=== PATIENT | male | born 1935 | race Caucasian/White ===

== ENCOUNTER 2020-03-26 11:41 | Inpatient (IN) | payer MEDICARE, SELFPAY ==
[2020-03-26] VITALS (31 sets, daily range): BP systolic 130–157; BP diastolic 55–96; PULSE 62–87; RESP 12–23; TEMP 36.2–36.5; O2SAT 92–98; BMI 31.7; BMI 31.0
--- NOTE | ~2020-03-26 | CT_ITS ---
EXAMINATION: CTA brain carotid DATE: 03/28/2020 09:46 INDICATION: Neck pain. Diplopia. Vertigo. TECHNIQUE: Computed tomographic angiography (CTA) of the head was performed without and with 100 mL O mnipaque-350 intravenous contrast. CTA of the neck was performed with intravenous contrast. Automated exposure control and iterative reconstruction technique were employed. The dose-length product was 1 759.13 mGy-cm. Maximum intensity projection and volume rendered 3D-reconstructions were created by martinez tatum technologist on a separate workstation. COMPARISON: Head CT 03/26/2020, brain MRI 09/25/2014 FINDINGS: HEAD CTA: There are scattered areas of low attenuation in the cerebral white matter. There is no intr acranial hemorrhage, acute infarction, or abnormal intracranial mass lesion. The ventricles are gene l in size. There are likely changes of ocular lens replacement surgeries. The paranasal sinuses are c lear. The mastoid air cells are normal. Left vertebral artery is dominant. There is no significant st enosis of basilar artery or the posterior cerebral arteries. There is no significant stenosis of the intracranial internal carotid arteries or anterior or middle cerebral arteries. Anterior communicatin g artery is normal. The posterior communicating arteries are normal. There is no aneurysm. NECK CTA: There is mild emphysema. There are no pathologically enlarged lymph nodes. Dental disease i s noted. There is no significant stenosis of the vertebral arteries. There is plaque in the proximal internal carotid arteries. There is 14% stenosis of the proximal right internal carotid artery relati ve to normal distal artery lumen diameter (NASCET criteria). There is 28% stenosis of the proximal le ft internal carotid artery relative to normal distal artery lumen diameter. There is severe cervical spondylosis. IMPRESSION: 1. Moderate nonspecific cerebral white matter disease, which likely represents chronic small vessel i schemic disease. 2. No aneurysm or significant intracranial arterial stenosis. 3. 14% stenosis of the proximal right internal carotid artery relative to normal distal artery lumen diameter (NASCET criteria). 4. 28% stenosis of the proximal left internal carotid artery relative to normal distal artery lumen d iameter. Reviewed, dictated and finalized at location A. IMPRESSION: 1. Moderate nonspecific cerebral white matter disease, which likely represents chronic small vessel ischemic disease. 2. No aneurysm or significant intracranial arterial stenosis. 3. 14% stenosis of the proximal right internal carotid artery relative to gene l distal artery lumen diameter (NASCET criteria). 4. 28% stenosis of the proximal left internal carotid artery relative to normal distal artery lumen diameter.
--- NOTE | ~2020-03-26 | CT_ITS ---
EXAMINATION: CT brain wo con DATE: 03/26/2020 12:53 INDICATION: Syncopal episode with fall. TECHNIQUE: Computed tomography (CT) of the head was performed without intravenous contrast. Sagittal and coronal reconstructions were performed. The mA was adjusted according to patient size. Iterative reconstruct ion technique was employed. The dose-length product was 605.33 mGy-cm. COMPARISON: Brain MR dated 09/25/2014 FINDINGS: No calvarial fracture. No acute intracranial hemorrhage, acute infarction or abnormal extra axial flu id collection. There is moderate scattered white matter hypoattenuation consistent with chronic small vessel ischemic disease. Symmetric prominence of the sulci and ventricles consistent with moderate a ge-appropriate diffuse cerebral volume loss. No mass/mass effect. The orbits, paranasal sinuses and m astoid air cells are normal. Intracranial calcified cerebral atherosclerosis is noted. IMPRESSION: 1. No fracture or acute intracranial process. 2. Age-related changes including moderate diffuse loss and moderate scattered white matter hypoattenu ation consistent with chronic small vessel ischemic disease. Reviewed, dictated and finalized at location A. IMPRESSION: 1. No fracture or acute intracranial process. 2. Age-related changes including moderate diffuse loss and moderate scattered w shelbie matter hypoattenuation consistent with chronic small vessel ischemic disea se.
--- NOTE | ~2020-03-26 | CT_ITS ---
EXAMINATION: CT facial bones wo con DATE: 03/26/2020 13:43 INDICATION: Facial swelling post fall TECHNIQUE: Computed tomography (CT) of the facial bones and maxillofacial region was performed withou t intravenous contrast. Coronal reconstructions were obtained. Automated exposure control and iterati ve reconstruction technique were employed. The dose-length product was 355.72 mGy-cm. COMPARISON: None. FINDINGS: No maxillofacial fractures. Temporomandibular joints are in normal alignment with severe bilateral os teoarthritis. Chronic mild leftward bowing of the anterior nasal septum. Dental and periodontal disea se with multiple absent teeth and corresponding alveolar ridge resorption as well as some periodontal erosions and a few dental caries, the largest involving the right mandibular canine. Mastoid air arcelia ls and middle ear cavities are clear. Mild mucosal thickening at the bilateral frontoethmoidal recess es. Orbits are normal with change of bilateral intraocular lens replacements. Atherosclerotic calcifi cation is at the bilateral carotid bulbs. Severe cervical spondylosis with 2 mm anterolisthesis C7 on T1. Fusion across the left C2-C3 facet joints. No acute cervical osseous abnormality. IMPRESSION: 1. No maxillofacial fractures. Reviewed, dictated and finalized at location A.
--- NOTE | 2020-03-26 11:52 | PC.NURSE ---
pt c/o feeling dizzy and nasal soreness. states had a nosebleed for a long period.
--- NOTE | 2020-03-26 12:11 | ECG_ITS ---
Measurements Intervals [place] Rate: 74 P: 46 NM: 168 QRS: -26 QRSD: 89 T: 46 QT: 410 QTc: 456 Interpretive Statements SINUS RHYTHM ATRIAL PREMATURE COMPLEXES POSSIBLE LEFT ATRIAL ENLARGEMENT EARLY PRECORDIAL R/S TRANSITION POSSIBLE LEFT VENTRICULAR HYPERTROPHY INFERIOR INFARCT, AGE INDETERMINATE BORDERLINE T WAVE ABNORMALITY- HIGH LATERAL LEADS BASELINE WANDER- I, II, AVR, V1-V6 ABNORMAL ECG Electronically Signed On 03-26-2020 15:01:31 CDT by David Lu D.O.
[2020-03-26 12:21] LABS: Basophils Absolute Auto 0.1 K/mm3 (0.0-0.1); Basophils Percent Auto 0.8 % (0.2-1.2); Eosinophils Absolute Auto 0.3 K/mm3 (0-0.3); Eosinophils Percent Auto 4.8 % (0-4.4); Hematocrit 49.5 % (42.0-52.0); Hemoglobin 16.5 g/dL (14.0-18.0); Immature Granulocyte Absolute 0.01 K/mm3 (0.00-0.031); Immature Granulocyte Percent A 0.2 % (0-0.5); Lymphocytes Absolute Auto 1.36 K/mm3 (0.9-3.2); Lymphocytes Percent Auto 22.4 % (18.3-44.2); Mean Corpuscular HGB Conc 33.3 g/dl (32-36); Mean Corpuscular Hemoglobin 29.4 pg (26-34); Mean Corpuscular Volume 88.2 fl (80-100); Mean Platelet Volume 9.8 fl (7.4-10.4); Monocytes Absolute Auto 0.6 K/mm3 (0.1-0.6); Monocytes Percent Auto 9.7 % (2.6-8.5); Neutrophils Absolute Auto 3.8 K/mm3 (1.3-6.7); Neutrophils Percent Auto 62.1 % (45.5-73.1); Platelet Count Result 237 k/mm3 (150-375); Red Blood Count 5.61 M/mm3 (4.6-6.20); Red Cell Distribution Width 13.2 % (11.5-14.5); White Blood Count 6.1 K/mm3 (4.5-10.0)
[2020-03-26 12:32] LABS: Blood Urea Nitrogen 18 mg/dL (9-20); Calcium 9.2 mg/dL (8.4-10.2); Carbon Dioxide 29 mmol/L (22-30); Chloride 99 mmol/L (98-107); Estimated CRCL calculation 59 ml/min; Estimated Glomerular Filt Rate > 60; Glucose 138 mg/dL (75-110); Potassium 3.7 mmol/L (3.4-5.0); Sodium 137 mmol/L (137-145)
--- NOTE | 2020-03-26 12:36 | ED.SYNCOPE ---
HPI - Syncope General Chief Complaint: Syncope Stated Complaint: fall Time Seen by Provider: 03/26/20 11:59 Source: patient Mode of arrival: ambulatory Limitations: no limitations History of Present Illness HPI narrative: This patient is an 84 year old male who presents for evaluation of syncopal episode. Patient states he remembers getting up to go the bathroom and then he was on the floor with of bloody nose. He does not remember feeling lightheaded or dizzy. He denies having chest pain, nausea, vomiting or shortness of breath. He denies history of syncope in the past. MD complaint: loss of consciousness Witnessed: No Related Data Home Medications Medication Instructions Recorded Confirmed albuterol sulfate 90 mcg/actuation 1 inhalation INHALATION Q4H PRN 09/09/19 03/26/20 aerosol inhaler aspirin 81 mg tablet,delayed 81 mg PO DAILY 09/09/19 03/26/20 release cholecalciferol (vitamin D3) 25 1,000 unit PO DAILY 09/09/19 03/26/20 mcg (1,000 unit) capsule fluticasone furoate 100 1 inhalation INHALATION DAILY PRN 09/09/19 03/26/20 mcg-vilanterol 25 mcg/dose inhalation powder gabapentin 300 mg capsule 300 mg PO BID 09/09/19 03/26/20 linaclotide 290 mcg capsule 290 mcg PO DAILY PRN 09/09/19 03/26/20 naproxen sodium 220 mg tablet 220 mg PO BID PRN 09/09/19 03/26/20 pyridoxine (vitamin B6) 250 mg 250 mg PO DAILY 09/09/19 03/26/20 tablet cholecalciferol (vitamin D3) 50 50 mcg PO DAILY 11/29/19 03/26/20 mcg (2,000 unit) tablet cyanocobalamin (vitamin B-12) 1,000 mcg PO DAILY 11/29/19 03/26/20 1,000 mcg capsule magnesium 250 mg tablet 250 mg PO DAILY 11/29/19 03/26/20 mirabegron 50 mg tablet,extended 50 mg PO DAILY 11/29/19 03/26/20 release 24 hr sertraline 50 mg PO DAILY PRN 03/26/20 03/26/20 Allergies Allergy/AdvReac Type Severity Reaction Status Date / Time adhesive Allergy Mild BLISTERS Verified 03/26/20 16:34 codeine Allergy Mild Rash Verified 03/26/20 16:34 tetanus toxoid, adsorbed Allergy Mild BARB AREA Verified 03/26/20 16:34 tetracycline Allergy Mild Rash Verified 03/26/20 16:34 Review of Systems Review of Systems: All systems reviewed & are unremarkable except as noted in HPI and below Constitutional: Constitutional: Denies chills, Denies fever(s) and Denies weakness ENT: Denies dysphagia, Denies dizziness and Reports epistaxis Cardiovascular: Cardiovascular: Denies rapid heart rate and Denies radiating jaw, neck or arm pain Respiratory: Respiratory: Denies cough, Denies dyspnea and Denies wheezing Gastrointestinal: Gastrointestinal: Denies abdominal pain, Denies diarrhea, Denies nausea and Denies vomiting Musculoskeletal: Musculoskeletal: Denies back pain and Denies muscle cramps PMFSH Past Medical History Medical History (Updated 03/26/20 @ 19:29 by Ammy Vázquez MD) Asthma Benign prostatic hyperplasia Chronic sinusitis Essential hypertension Gastroesophageal reflux disease History of benign bladder tumor (~2005) Biopsy revealed changes consistent with chronic inflammation as well as subacute and acute interstitial cystitis. Hyperlipidemia Irritable bowel syndrome Osteoarthritis Surgical History Surgical History (Updated 03/26/20 @ 15:04 by Suze Medina PA-C) History of right hip replacement (~11/2006) History of surgery on left wrist Related to wrist fracture. Hx of CABG Family History Family History (Updated 03/26/20 @ 16:03 by Layla Loaiza RN) Father Diabetes mellitus Family history of coronary artery disease Hypertension Sibling Family history of cardiovascular disease Malignant neoplasm of prostate Family history of elevated blood lipids Diabetes mellitus Family history of coronary artery disease Hypertension Cerebrovascular accident Acute myocardial infarction Other Asthma Social History Social History (Updated 03/26/20 @ 15:06 by Suze Medina PA-C) Social History: The patient lives in [facility]
[2020-03-26 12:41] LABS: Magnesium 2.2 mg/dL (1.6-2.3)
[2020-03-26 12:54] LABS: Troponin I < 0.012 ng/mL (0.000-0.034)
[2020-03-26 14:54] LABS: Prothrombin Time 12.4 Seconds (11.1-14.7)
[2020-03-26 14:55] LABS: Partial Thromboplastin Time 33.1 SECONDS (22.3-36.8)
--- NOTE | 2020-03-26 15:39 | PC.NURSE ---
This patient, Romie Farnsworthelmo Bates, was admitted to 2 Medical Room 250-01. Patient/family oriented to hospital policies and general routines including ID bracelet, bed and alarms, visiting hours, pain management, procedures, bathroom and other care routines, personal items, smoking policy, room service/diet, and visiting hours. Valuables list has been completed. Information on how to activate the Rapid Response Team has been discussed. Patient/Family are encouraged to report perceived risks to care and to ask questions if they do not understand what they are told or what they should do.
--- NOTE | 2020-03-26 18:30 | PM.IMHP ---
H&P: HPI History of Present Illness Chief complaint: Syncope. Narrative: Romie Hardy Sr. is an 84-year-old male with hypertension, hyperlipidemia, GERD, coronary artery disease, lower extremity peripheral neuropathy, and benign prostatic hyperplasia presented to the emergency department earlier this morning for evaluation after a syncopal episode. He felt in his usual state of health when he open his eyes this morning upon waking. He then swung his legs around the bed in order to get up to go to the restroom, however the next thing he knew he was waking up face down on the floor. It is difficult to say whether or not he had a prodrome prior to this syncopal episode, as he gives conflicting history throughout the interview. Initially he reported that he had no symptoms prior to passing out, but later in the interview he mentions feeling lightheaded. When asked to further qualify the lightheadedness, it in fact sounds as though he has been suffering from vertigo for a couple of days causing poor balance. He goes on to say that his balance has been poor for quite some time. In any event, he denies injury from the fall but does report epistaxis due to falling on his face. He was able to get himself up and clean, prior to coming to the hospital. At the time of my evaluation, he continues to have vertigo which seems worse with position change. He also notes monocular diplopia, right-sided, which has been an ongoing problem in which he had corrective surgery for several months ago without much benefit. Additionally, he mentions having recently started physical therapy for diffuse upper neck pain that has been present for several weeks. He denies chest pain, pleuritic pain, palpitations, and shortness of breath. No lower extremity edema, recent travel, or history of venous thromboembolism. He denies focal weakness. He has chronic lower extremity peripheral neuropathy which is unchanged. No facial asymmetry, dysarthria, or dysphagia. Review of Systems Review of Systems: Narrative: Twelve systems were reviewed with pertinent positives and negatives as per HPI. No fever, chills, or sweats. He does have seasonal allergies this time of year with mild sinus congestion and rhinorrhea. Weight has remained stable. No history of stroke. He has not had any falls prior to today. Denies nausea, vomiting, and diarrhea. No dysuria. He has not had any recent change in medication. Appetite has been stable. Except as documented, all other systems were reviewed and are negative. [facility] Past Medical History Medical History (Updated 03/26/20 @ 20:41 by Suze Medina PA-C) Asthma Benign prostatic hyperplasia Chronic sinusitis Coronary artery disease Essential hypertension Gastroesophageal reflux disease History of benign bladder tumor (~2005) Biopsy revealed changes consistent with chronic inflammation as well as subacute and acute interstitial cystitis. Hyperlipidemia Irritable bowel syndrome Osteoarthritis Peripheral neuropathy Surgical History Surgical History (Updated 03/26/20 @ 20:36 by Suze Medina PA-C) History of eye surgery (~11/2019) Right eye surgery to correct diplopia. History of right hip replacement (~11/2006) History of surgery on left wrist Related to wrist fracture. History of two vessel coronary artery bypass graft (~2005) Family History Family History Father Diabetes mellitus Family history of coronary artery disease Hypertension Sibling Family history of cardiovascular disease Malignant neoplasm of prostate Family history of elevated blood lipids Diabetes mellitus Family history of coronary artery disease Hypertension Cerebrovascular accident Acute myocardial infarction Other Asthma Social History Social History (Updated 03/26/20 @ 20:38 by Suze Medina PA-C) Social History: The patient lives in [place], [place] with his . Th
[2020-03-27] VITALS (13 sets, daily range): BP systolic 112–153; BP diastolic 60–86; PULSE 61–86; RESP 16–20; TEMP 36.2–36.8; O2SAT 94–96
[2020-03-27] MEDS: GABAPENTIN 300 MG CAPSULE PO ×3 (00:19→20:54)
[2020-03-27] MEDS: ACETAMINOPHEN 325 MG TABLET 650 MG PO (00:31)
[2020-03-27] MEDS: PYRIDOXINE HCL 50 MG TABLET 250 MG PO (08:47)
[2020-03-27] MEDS: ASPIRIN 81 MG ENTERIC TABLET PO (08:47)
[2020-03-27] MEDS: CHOLECALCIFEROL 1,000 UNIT TABLET 1000 UNITS PO (08:48)
[2020-03-27] MEDS: CYANOCOBALAMIN 1,000 MCG TABLET 1000 MCG PO (08:48)
[2020-03-27] MEDS: MIRABEGRON 25 MG ER TABLET 50 MG PO (08:49)
[2020-03-27] MEDS: hydroCHLOROthiazide 25 MG TABLET PO (08:49)
[2020-03-27] MEDS: PANTOPRAZOLE 40 MG TABLET PO (08:49)
[2020-03-27] MEDS: SIMVASTATIN 20 MG TABLET 40 MG PO (08:49)
[2020-03-27] MEDS: SERTRALINE HCL 50 MG TABLET PO (08:49)
[2020-03-27] MEDS: TAMSULOSIN HCL 0.4 MG CAPSULE PO (08:50)
--- NOTE | 2020-03-27 09:10 | PC.NURSE ---
Patient reports allergy to contrast dye - states the first time he had contrast dye, he developed a rash and since then he has required premedications for tests involving contrast dye. Allergies added to patient's profile. Called radiology and informed them of allergies. Called Dr. Chavira and left voice message regarding same.
--- NOTE | 2020-03-27 10:44 | PM.IMPN ---
Progress Note: A&P Assessment and Plan (1) Syncope: Qualifiers: Syncope type: unspecified Qualified Code(s): R55 - Syncope and collapse Code(s): R55 - Syncope and collapse Status: Acute Assessment and Plan: Etiology unclear. [place] related to the vertigo symptoms he is having. Head CT showing no acute findings. Facial CT showing no fracture. Echo showing EF 60%, grade 1 diastolic dysfunction and mild-moderate MR but nothing to explain syncope. Awaiting the CTA to be obtained after pretreatment. Continue fall precautions. Continue tele (2) Vertigo: Code(s): R42 - Dizziness and giddiness Status: Acute Assessment and Plan: Probably more likely benign vertigo but concern for thrombus or dissection given the diplopia and neck pain. Agree with CTA but having to pre-treat. MRA not much help since would have to pretreated for this as well since patient unsure of his allergy. Continue PT/OT. Will start meclizine see if this helps. Called by nursing and informed patient was very somnolent with meclizine and that he no longer wants this so will stop the medicine. (3) Essential hypertension: Code(s): I10 - Essential (primary) hypertension Status: Acute Assessment and Plan: Blood pressure reviewed on 03/27/2020. Blood pressure well controlled. Patient's symptoms seem to be worse with standing but orthostatic vital signs were normal. Continue HCTZ for now. Follow up on current studies. (4) Benign prostatic hyperplasia: Code(s): N40.0 - Benign prostatic hyperplasia without lower urinary tract symptoms Status: Acute Assessment and Plan: Stable. Voiding normally. Continue tamsulosin. Monitor for evidence of urine retention. (5) DVT prophylaxis: Code(s): Z29.9 - Encounter for prophylactic measures, unspecified Status: Acute Assessment and Plan: SCDs Subjective Date/time seen: 03/27/20 10:44 Interval history: 84yo male here for syncopal episode. He has allergy to contrast but unsure if symptoms occurred after MRI or CT scan. No n/v. Eating okay. Still feels dizzy mostly when up. He denies weakness but has chronic peripheral neuropathy Exam Narrative: Exam Narrative: AF 153/84 63 18 94% ra Gen - NARD lying flat in bed currntly having Echo Chest - CTA bilaterally, nml RR CV - RRR S1/S2; Tele showing no significant dysrhythmias Abd - soft, NT/ND, +BS Ext - No pedal edema Neuro - Alert, oriented and appropriate. Nml strength. rapid alternating movements normal. heel to tinajero normal. Psych - nml mood and affect Objective Data Vital Signs Vital Signs: Vital Signs - 24 hr 03/26/20 11:46 03/26/20 11:59 03/26/20 12:00 Temperature 97.2 F L Pulse Rate 78 71 76 Respiratory Rate 18 16 16 Blood Pressure 130/63 Pulse Oximetry 96 96 97 03/26/20 12:02 03/26/20 12:15 03/26/20 12:17 Temperature Pulse Rate 75 72 83 Respiratory Rate 16 18 17 Blood Pressure 145/79 H 140/80 Pulse Oximetry 96 95 98 03/26/20 12:30 03/26/20 12:32 03/26/20 12:57 Temperature Pulse Rate 71 75 76 Respiratory Rate 16 18 23 H Blood Pressure 157/86 H Pulse Oximetry 95 96 97 03/26/20 12:59 03/26/20 13:00 03/26/20 13:02 Temperature Pulse Rate 68 69 73 Respiratory Rate 17 16 16 Blood Pressure 145/84 H 133/83 Pulse Oximetry 96 95 93 03/26/20 13:12 03/26/20 13:13 03/26/20 13:14 Temperature Pulse Rate 63 67 74 Respiratory Rate 17 Blood Pressure 136/80 139/70 136/80 Pulse Oximetry 94 03/26/20 13:15 03/26/20 13:16 03/26/20 13:19 Temperature Pulse Rate 75 75 84 Respiratory Rate 12 17 23 H Blood Pressure 139/70 142/96 H Pulse Oximetry 95 95 97 03/26/20 13:30 03/26/20 13:32 03/26/20 13:46 Temperature Pulse Rate 68 70 72 Respiratory Rate 16 16 18 Blood Pressure 146/85 H Pulse Oximetry 94 95 98 03/26/20 14:00 03/26/20 14:15 03/26/20 14:30 Temperature
[2020-03-27] MEDS: MECLIZINE HCL 12.5 MG TABLET PO (12:31)
--- NOTE | 2020-03-27 16:52 | PC.NURSE ---
Patient very sleepy and lethargic after 1300 dose of Meclizine. Does not want to take 1700 dose. Dose held and message left for Dr. Chavira.
--- NOTE | 2020-03-27 17:20 | ECHO_ITS ---
Patient Info Name: Romie Hardy Age: 84 years : 1935 Gender: Male Ht: 67 in Wt: 198 lbs BSA: 2.09 m2 HR: 64 bpm BP: 153 / 83 mmHg Technical Quality: Good Exam Date: 03/27/2020 9:53 AM Exam Location: [facility] Patient Status: Outpatient Admit Date: 03/26/2020 Staff Ordering Physician: Suze Medina PA-C Ultrasound Spec: Brayden Lopez RDCS, RT Attending Provider: Chris Chavira MD Referring Physician: Adam GRIMES; Exam Type: CA echo doppler color flow Study Info Indications R55 - Syncope and collapse Complete two-dimensional, color flow and Doppler transthoracic echocardiogram is performed. Summary 1. Left ventricular chamber dimension is normal. 2. Ventricular septum is sigmoid shaped. 3. Left ventricular systolic function is normal, estimated at 60-65%. 4. The left ventricular diastolic function is grade I diastolic dysfunction. 5. E/e' 8 is minimally elevated. 6. Global longitudinal strain is normal at -17.6%. 7. Right ventricular systolic function is mildly reduced with TAPSE 1.6 cm. 8. Right ventricular chamber dimension is moderately enlarged. 9. Left atrial chamber dimension is moderately enlarged. 10. Right atrial chamber dimension is mildly enlarged. 11. Mild sclerocalcification of aortic valve leaflets. 12. There is mild aortic valve stenosis with a peak velocity of 182 cm/s, mean gradient of 3 mmHg, and aortic valve area of 1.5 cm2. 13. The mitral valve has mildly thickened leaflets and moderately calcified annulus. 14. There is mild to moderate mitral valve regurgitation. 15. There is mild pulmonic regurgitation. 16. Small atheroma in anterior and posterior aortic root. Left Ventricle E/e' 8 is minimally elevated. Global longitudinal strain is normal at -17.6%. Ventricular septum is sigmoid shaped. Left ventricular chamber dimension is normal. Left ventricular systolic function is normal, estimated at 60-65%. The left ventricular diastolic function is grade I diastolic dysfunction. Right Ventricle Right ventricular systolic function is mildly reduced with TAPSE 1.6 cm. Right ventricular chamber dimension is moderately enlarged. Left Atria Left atrial chamber dimension is moderately enlarged. Right Atria Right atrial chamber dimension is mildly enlarged. Aortic Valve Mild sclerocalcification of aortic valve leaflets. The aortic valve is trileaflet. There is mild aortic valve stenosis with a peak velocity of 182 cm/s, mean gradient of 3 mmHg, and aortic valve area of 1.5 cm2. There is no aortic valve regurgitation. Pulmonic Valve There is mild pulmonic regurgitation. Mitral Valve The mitral valve has mildly thickened leaflets and moderately calcified annulus. There is no mitral valve stenosis. There is mild to moderate mitral valve regurgitation. Tricuspid Valve There is no tricuspid valve regurgitation. Pericardium/Pleural There is no pericardial effusion. Inferior Vena Cava Normal inferior vena cava with >50% collapse upon inspiration consistent with normal right atrial pressure, 5 mmHg. Aorta Small atheroma in anterior and posterior aortic root. The aortic root size at the sinus of Valsalva is normal. Left Ventricular Outflow Tract Name Value Normal LVOT 2D
[2020-03-27] MEDS: predniSONE 40 MG, predniSONE 10 MG 50 MG PO (20:54)
[2020-03-28] VITALS (13 sets, daily range): BP systolic 122–167; BP diastolic 66–149; PULSE 76–115; RESP 16–20; TEMP 36.3–36.6; O2SAT 92–96
[2020-03-28] MEDS: predniSONE 40 MG, predniSONE 10 MG 50 MG PO ×2 (01:59→08:34)
--- NOTE | 2020-03-28 08:30 | PC.NURSE ---
Called pharmacy to request 0900 Vitamin D that was not available on the unit. Voicemail was left requesting to send the medication up through the tube system.
[2020-03-28] MEDS: MIRABEGRON 25 MG ER TABLET 50 MG PO (08:33)
[2020-03-28] MEDS: PANTOPRAZOLE 40 MG TABLET PO (08:33)
[2020-03-28] MEDS: CYANOCOBALAMIN 1,000 MCG TABLET 1000 MCG PO (08:33)
[2020-03-28] MEDS: ASPIRIN 81 MG ENTERIC TABLET PO (08:33)
[2020-03-28] MEDS: GABAPENTIN 300 MG CAPSULE PO ×2 (08:34→21:41)
[2020-03-28] MEDS: TAMSULOSIN HCL 0.4 MG CAPSULE PO (08:34)
[2020-03-28] MEDS: hydroCHLOROthiazide 25 MG TABLET PO (08:34)
[2020-03-28] MEDS: SERTRALINE HCL 50 MG TABLET PO (08:34)
[2020-03-28] MEDS: PYRIDOXINE HCL 50 MG TABLET 250 MG PO (08:35)
[2020-03-28] MEDS: SIMVASTATIN 20 MG TABLET 40 MG PO (08:36)
--- NOTE | 2020-03-28 09:23 | PCPTNOTE ---
Patient refused treatment this session, stating he just doesn't feel up to it this morning, also,s tated he is going down for an Xray shortly.
--- NOTE | 2020-03-28 10:06 | PC.NURSE ---
0900 Vitamin D was still unavailable from pharmacy, so I left a second voicemail requesting the medication be sent up.
[2020-03-28] MEDS: CHOLECALCIFEROL 1,000 UNIT TABLET 1000 UNITS PO (10:21)
[2020-03-28] MEDS: ACETAMINOPHEN 325 MG TABLET 650 MG PO (13:30)
--- NOTE | 2020-03-28 15:20 | PC.NURSE ---
Patient became tachycardic in the 120's-130's while walking to the bathroom. The patient stated he had slightly more dizziness than usual while walking. After returning to the bed and repositioning the patient's heart rate returned to 108. I notified Dr. Chavira of this instance and he reviewed the gambling monitor and said continue to monitor the patient.
--- NOTE | 2020-03-28 15:52 | PM.IMPN ---
Progress Note: A&P Assessment and Plan (1) Syncope: Qualifiers: Syncope type: unspecified Qualified Code(s): R55 - Syncope and collapse Code(s): R55 - Syncope and collapse Status: Acute Assessment and Plan: Etiology unclear. [place] related to the vertigo symptoms he is having. Head CT showing no acute findings. Facial CT showing no fracture. Echo showing EF 60%, grade 1 diastolic dysfunction and mild-moderate MR but nothing to explain syncope. CTA no significnat findings to explain his symptoms. Continue fall precautions. Continue tele. Continue PT/OT. Home if able to ambulate safely. (2) Vertigo: Code(s): R42 - Dizziness and giddiness Status: Acute Assessment and Plan: Probably more likely benign vertigo but there was a concern for thrombus or dissection given the diplopia and neck pain so CTA ordered but relatively normal. Continue PT/OT. Could not tolerate meclizine. . (3) Essential hypertension: Code(s): I10 - Essential (primary) hypertension Status: Acute Assessment and Plan: Blood pressure reviewed on 03/28/2020. Blood pressure elevated at times. Patient's symptoms seem to be worse with standing but orthostatic vital signs were normal. Continue HCTZ for now. Continue to follow. (4) Benign prostatic hyperplasia: Code(s): N40.0 - Benign prostatic hyperplasia without lower urinary tract symptoms Status: Acute Assessment and Plan: Stable. Continue tamsulosin. (5) DVT prophylaxis: Code(s): Z29.9 - Encounter for prophylactic measures, unspecified Status: Acute Assessment and Plan: SCDs Subjective Date/time seen: 03/28/20 15:52 Interval history: 84yo male here for syncopal episode. [place] with headache today. His nose still hurts when he rubs it. No n/v. He has double vision but this is chronic and has special glasses made for this. Eating okay. Still feels very weak Exam Narrative: Exam Narrative: AF 122/70 Gen - NARD Chest - few scattered rhonchi, nml RR CV - RRR S1/S2; Tele showing mild STach when ambulating Abd - soft, NT/ND, +BS Ext - No pedal edema Psych - nml mood and affect Skin - warm and dry Objective Data Vital Signs Vital Signs: Vital Signs - 24 hr 03/27/20 16:00 03/27/20 20:00 03/27/20 22:00 Temperature 98.3 F 97.5 F L Pulse Rate 70 70 71 Respiratory Rate 16 20 Blood Pressure 112/66 147/79 H Pulse Oximetry 94 96 03/28/20 00:00 03/28/20 04:00 03/28/20 06:00 Temperature 97.3 F L Pulse Rate 76 94 82 Respiratory Rate 20 Blood Pressure 145/81 H Pulse Oximetry 92 03/28/20 06:01 03/28/20 06:45 03/28/20 08:00 Temperature Pulse Rate 85 Respiratory Rate Blood Pressure 167/149 H 132/83 Pulse Oximetry 03/28/20 12:00 03/28/20 14:00 03/28/20 14:03 Temperature 97.6 F Pulse Rate 108 H 106 H 115 H Respiratory Rate 18 Blood Pressure 145/71 H 124/71 Pulse Oximetry 96 03/28/20 14:06 Temperature Pulse Rate 111 H Respiratory Rate Blood Pressure 122/70 Pulse Oximetry Intake/Output Intake/Output: Intake & Output 03/25/20 03/26/20 03/27/20 03/28/20 23:59 23:59 23:59 23:59 Intake Total 460 1000 840 Output Total 1450 100 Balance 460 -450 740 Meds/Results Medications: Active Medications Generic Name Dose Route Start Last Admin Trade Name Freq PRN Reason Stop Dose Admin Acetaminophen 650 mg 03/27/20 00:22 03/28/20 13:30 Tylenol Tablet PO 650 mg Q4H PRN Administration Mild Pain (1-3) or Fever Albuterol 1 puff 03/26/20 20:13 Proventil Hfa INHALATION Q4H PRN Shortness Of Breath Or Wheezing Aspirin 81 mg 03/27/20 09:00 03/28/20 08:33 Aspirin Ec PO 81 mg DAILY LOI Administration Budesonide/Formoterol Fumarate 2 puff 03/26/20 20:00 03/28/20 09:08 Symbicort 160-4.5 Mcg (*Sp) Inhaler INHALATION 2 puff Q12HRT LOI Administration Cyanocobal
--- NOTE | 2020-03-28 18:11 | WPDNEURCNPN ---
Assessment and Plan Assessment and plan (1) DVT prophylaxis: Code(s): Z29.9 - Encounter for prophylactic measures, unspecified Status: Acute (2) Benign prostatic hyperplasia: Code(s): N40.0 - Benign prostatic hyperplasia without lower urinary tract symptoms Status: Acute (3) Syncope: Qualifiers: Syncope type: unspecified Qualified Code(s): R55 - Syncope and collapse Code(s): R55 - Syncope and collapse Status: Acute (4) Essential hypertension: Code(s): I10 - Essential (primary) hypertension Status: Acute (5) Cervicalgia: Code(s): M54.2 - Cervicalgia Status: Acute (6) Acute bronchitis: Code(s): J20.9 - Acute bronchitis, unspecified Status: Acute (7) Otitis media: Qualifiers: Otitis media type: unspecified Chronicity: acute Qualified Code(s): H66.90 - Otitis media, unspecified, unspecified ear Code(s): H66.90 - Otitis media, unspecified, unspecified ear Status: Acute (8) Memory changes: Code(s): R41.3 - Other amnesia Status: Acute Additional Plan the patient is stable at this point I have discussed this with Dr. Chavira and I would suggest that we do the brain MRI without contrast to make sure he does not have any at least left hemispheric stroke responsible for change in his overall cognitive status rest of the management as such Consult date: 03/28/20 Time Seen: 18:00 HPI: Romie Farnsworthelmo Estes. is a 84 year old male Who is right-handed was admitted because of the syncope which has resolved he has underlying peripheral neuropathy for quite some time and also except that he does have some short-term memory loss apparently he says that he was doing the therapy for his neck and he fell backward and possibly might have lost consciousness at this point he denies any significant headache his neck pain in fact if anything is better his memory is about the same as he says no nausea vomiting chest pain or shortness of breath is neuro imaging so far has been unrevealing Review of Systems Review of Systems: All systems reviewed & are unremarkable except as noted in HPI and below PMFSH Past Medical History Medical History Asthma Benign prostatic hyperplasia Chronic sinusitis Coronary artery disease Essential hypertension Gastroesophageal reflux disease History of benign bladder tumor (~2005) Biopsy revealed changes consistent with chronic inflammation as well as subacute and acute interstitial cystitis. Hyperlipidemia Irritable bowel syndrome Osteoarthritis Peripheral neuropathy Surgical History Surgical History History of eye surgery (~11/2019) Right eye surgery to correct diplopia. History of right hip replacement (~11/2006) History of surgery on left wrist Related to wrist fracture. History of two vessel coronary artery bypass graft (~2005) Family History Family History Father Diabetes mellitus Family history of coronary artery disease Hypertension Sibling Family history of cardiovascular disease Malignant neoplasm of prostate Family history of elevated blood lipids Diabetes mellitus Family history of coronary artery disease Hypertension Cerebrovascular accident Acute myocardial infarction Other Asthma Social History Social History (Updated 03/26/20 @ 20:38 by Suze Medina PA-C) Social History: The patient lives in [place], [place] with his . They have 3 children. He is retired and worked in the dairy industry. He smoked 1/2 a pack of cigarettes per day for 20 years and quit many years ago. No alcohol or drug abuse. He designates his , Shelbi, is his surrogate decision maker and wishes to be a full code. Smoking packs per day: 0.5 Smoking cigarettes per day: 10.0 Years smoked: 20 Smoking pack-years: 10.0
[2020-03-29] VITALS (10 sets, daily range): BP systolic 124–140; BP diastolic 59–82; PULSE 64–89; RESP 16–18; TEMP 36.4–36.7; O2SAT 95–96
[2020-03-29] MEDS: SCOPOLAMINE 1.5 MG PATCH TRANSDERM (00:38)
[2020-03-29] MEDS: GABAPENTIN 300 MG CAPSULE PO (08:52)
[2020-03-29] MEDS: PYRIDOXINE HCL 50 MG TABLET 250 MG PO (08:52)
[2020-03-29] MEDS: TAMSULOSIN HCL 0.4 MG CAPSULE PO (08:53)
[2020-03-29] MEDS: PANTOPRAZOLE 40 MG TABLET PO (08:53)
[2020-03-29] MEDS: ASPIRIN 81 MG ENTERIC TABLET PO (08:53)
[2020-03-29] MEDS: CHOLECALCIFEROL 1,000 UNIT TABLET 1000 UNITS PO (08:53)
[2020-03-29] MEDS: MIRABEGRON 25 MG ER TABLET 50 MG PO (08:54)
[2020-03-29] MEDS: hydroCHLOROthiazide 25 MG TABLET PO (08:54)
[2020-03-29] MEDS: CYANOCOBALAMIN 1,000 MCG TABLET 1000 MCG PO (08:54)
[2020-03-29] MEDS: SIMVASTATIN 20 MG TABLET 40 MG PO (08:55)
[2020-03-29] MEDS: SERTRALINE HCL 50 MG TABLET PO (08:55)
--- NOTE | 2020-03-29 16:32 | PM.DS ---
DS: Admitting Diagnosis Admitting Diagnosis Admitting Diagnosis: Syncope and collapse DS: Discharge Diagnosis Discharge Diagnosis (1) Syncope: Qualifiers: Syncope type: unspecified Qualified Code(s): R55 - Syncope and collapse Code(s): R55 - Syncope and collapse Status: Acute Assessment and Plan: Etiology unclear. [place] related to the vertigo symptom. Head CT showing no acute findings. Facial CT showing no fracture. Echo showing EF 60%, grade 1 diastolic dysfunction and mild-moderate MR but nothing to explain syncope. CTA no significant findings to explain his symptoms. He was on telemetry and there is no significant dysrhythmias. He has been up ambulating with a walker. Okay for discharge. Discussed with Neurology. (2) Vertigo: Code(s): R42 - Dizziness and giddiness Status: Acute Assessment and Plan: Probably more likely benign vertigo but there was a concern for thrombus or dissection given the diplopia and neck pain. 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 CTA head and neck ordered and was relatively normal (please see report for details). He received PT/OT. He could not tolerate meclizine. We tried a scopolamine patch. His dizziness resolved. He has been up ambulating. He feels stable enough for discharge. (3) Essential hypertension: Code(s): I10 - Essential (primary) hypertension Status: Acute Assessment and Plan: Blood pressure monitored closely. Blood pressure elevated at times but better controlled toward the end of his hospitalization. Patient's symptoms of dizziness seem to be worse with standing but orthostatic vital signs were normal. We continued HCTZ. (4) Benign prostatic hyperplasia: Code(s): N40.0 - Benign prostatic hyperplasia without lower urinary tract symptoms Status: Acute Assessment and Plan: Stable. We continued his tamsulosin. DS: Summary Hospital Course Reason for hospitalization: 84yo male here for syncope. Please see H&P for details. Hospital Course: As above Time Spent with Patient Time attestation: Total time spent providing and/or coordinating discharge services:32 minutes Time spent: Greater than 30 minutes Specific discharge activities: Spoke with by phone. Discussed with neurology. Time also to prepare the discharge Exam Narrative: Exam Narrative: Patient slept well. No further dizziness. Able to get up by himself. No CP or SOB AF 124/66 Gen - NARD Chest - CTA bilaterally, nml RR CV - RRR S1/S2; Tele showing PVCs Abd - soft, NT/ND, +BS Ext - No pedal edema Neuro - patient able to sit up at side of bed from a lying position without assistance. He then was able to stand and walk (with walker) to the BR without symptoms Skin - warm and dry Discharge Plan Discharge Attending physician on discharge: Chris Chavira Consulting providers: Jacek Robertson Discharging Clinician: Chris Chavira Anticipated Discharge Date/Time: 03/29/20 16:52 Patient Disposition: Home, Self-Care Activity: as tolerated Diet: heart healthy Discharge Instructions: Take precautions to avoid falls. Rise slowly from a lying or sitting position. Pause before standing or walking. Always walk with a walker. Call your doctor or return to the emergency room if dizziness returns or other worrisome symptoms. Patient Instructions: Syncope (DC), Pain Management (DC), Fall Prevention for Older Adults (DC), Dizziness (ED), Antibiotic Form Stand Alone Forms: General Discharge Information Follow-up/Referrals: Jacek Robertson MD [Physician] - Call for Appointment Kevyn Smith MD [Primary Care Provider] - Call for Appointment Discharge Medications: New scopolamine base [Transderm-Scop] 1 mg over 3 days Patch 3 Day 1.5 mg transdermal Q72HR PRN (Reason: nausea and vomiting) Qty: 4 RF: 0 Continued aspirin 81 mg tablet,delay
--- NOTE | 2020-03-29 17:28 | WPDNEUROPN ---
Progress Note: A&P Assessment and Plan (1) Memory changes: Code(s): R41.3 - Other amnesia Status: Acute (2) Vertigo: Code(s): R42 - Dizziness and giddiness Status: Acute (3) Benign prostatic hyperplasia: Code(s): N40.0 - Benign prostatic hyperplasia without lower urinary tract symptoms Status: Acute (4) Syncope: Qualifiers: Syncope type: unspecified Qualified Code(s): R55 - Syncope and collapse Code(s): R55 - Syncope and collapse Status: Acute (5) Essential hypertension: Code(s): I10 - Essential (primary) hypertension Status: Acute (6) Cervicalgia: Code(s): M54.2 - Cervicalgia Status: Acute Additional Plan patient has done well since he was admitted and his exam is fairly decent and normal and he can be discharged with follow-up with the primary care physician and in case if the symptoms do reoccur then he can certainly have follow-up with me if the primary care desires or the patient's desire Review of Systems Review of Systems: All systems reviewed & are unremarkable except as noted in HPI and below Exam Const: General: comfortable and no acute distress HENMT: General nose exam: Normal nares present Mouth: Yes moist mucous membranes Eyes: General: appearance normal, both eyes and all related structures Neck: Neck: supple and no JVD Resp: Effort & Inspection: normal respiratory effort Auscultation: clear to auscultation bilaterally Cardio: Rate: regular rate Rhythm: regular rhythm GI: Auscultation: normal bowel sounds Skin: General skin exam: normal color and no rashes or lesions noted Neuro: Other: the patient is awake and alert well oriented in time place and person does have a mild short-term memory deficit which is baseline and also evidence of the peripheral neuropathy however he does not have any syncope or he does not have any vertigo anymore Extrem: General: normal to inspection Psych: Mental Status: mental status grossly normal Objective Data Vital Signs Vital Signs: Vital Signs - 24 hr 03/28/20 20:00 03/28/20 22:00 03/29/20 00:00 Temperature 36.6 C Pulse Rate 90 107 H 88 Respiratory Rate 16 Blood Pressure 136/66 Pulse Oximetry 96 03/29/20 04:00 03/29/20 06:00 03/29/20 06:39 Temperature 36.7 C Pulse Rate 85 80 Respiratory Rate 18 Blood Pressure 140/68 131/66 Pulse Oximetry 95 03/29/20 08:00 03/29/20 12:00 03/29/20 14:00 Temperature 36.4 C Pulse Rate 64 89 73 Respiratory Rate 16 Blood Pressure 128/82 Pulse Oximetry 96 03/29/20 14:03 03/29/20 14:06 03/29/20 16:00 Temperature Pulse Rate 79 85 84 Respiratory Rate Blood Pressure 128/68 124/66 Pulse Oximetry Intake/Output Intake/Output: Intake & Output 03/26/20 03/27/20 03/28/20 03/29/20 23:59 23:59 23:59 23:59 Intake Total 460 1000 1830 730 Output Total 1450 1050 600 Balance 460 -450 780 130 Meds/Results Medications: Active Medications Generic Name Dose Route Start Last Admin Trade Name Freq PRN Reason Stop Dose Admin Acetaminophen 650 mg 03/27/20 00:22 03/28/20 13:30 Tylenol Tablet PO 650 mg Q4H PRN Administration Mild Pain (1-3) or Fever Albuterol 1 puff 03/26/20 20:13 Proventil Hfa INHALATION Q4H PRN Shortness Of Breath Or Wheezing Aspirin 81 mg 03/27/20 09:00 03/29/20 08:53 Aspirin Ec PO 81 mg DAILY LOI Administration Budesonide/Formoterol Fumarate 2 puff 03/26/20 20:00 03/29/20 09:04 Symbicort 160-4.5 Mcg (*Sp) Inhaler INHALATION 2 puff Q12HRT LOI Administration Cyanocobalamin 1,000 mcg 03/27/20 09:00 03/29/20 08:54 Vitamin B-12 Tab PO 1,000 mcg DAILY LOI Administration Gabapentin 300 mg 03/26/20 21:00 03/29/20 08:52 Neurontin PO 300 mg Q12HR LOI Administration Hydrochlorothiazide 25 mg 03/27/20 09:00 03/29/20 08:54 Hydrochlorothiazide PO 25 mg DAILY LOI Administrati
== END 2020-03-29 18:45 | disposition home or self-care (01) | DRG 312 ==
LOC: ANHED 14:19 → ANH2MED 14:51
PROVIDERS: Admitting Provider Internal Medicine; Emergency Provider General Practice; PCP Family Medicine; Visit Provider Internal Medicine
DX: R55 Syncope and collapse (principal); R42 Dizziness and giddiness; H53.2 Diplopia; I10 Essential (primary) hypertension; N40.0 Benign prostatic hyperplasia without lower urinary tract symptoms; K21.9 Gastro-esophageal reflux disease without esophagitis; E78.5 Hyperlipidemia, unspecified; I25.10 Atherosclerotic heart disease of native coronary artery without angina pectoris; G62.9 Polyneuropathy, unspecified; K58.9 Irritable bowel syndrome, unspecified; J45.909 Unspecified asthma, uncomplicated; J32.9 Chronic sinusitis, unspecified; Z96.641 Presence of right artificial hip joint; Z95.1 Presence of aortocoronary bypass graft; Z87.891 Personal history of nicotine dependence; M54.2 Cervicalgia; J20.9 Acute bronchitis, unspecified; H66.90 Otitis media, unspecified, unspecified ear; R41.3 Other amnesia
CPT/HCPCS: 36415; 70450; 70486; 70496; 70498; 80048; 83735; 84484; 85025; 85610; 85730; 93005; 93306; 94640; 97110; 97116; 97161; 97165; 99285; A9270; J7512; Q9967

== ENCOUNTER 2020-11-20 12:42 | Outpatient (CLI) | payer MEDICARE, SELFPAY ==
--- NOTE | 2020-11-21 13:34 | WPDSIXMINUTE ---
Six Minute Walk This is a 6 minutes walk for exertional dyspnea. Findings: The patient's resting room air oxygen saturation measured by pulse oximetry was 93% and her heart rate was 88 bpm. Patient ambulated for 123 meters and oxygen saturation at end of test was 89%. Heart rate at the end of the study was 102 bpm. There are no prior studies for comparison.
--- NOTE | 2020-11-21 13:35 | WPDPFTINT ---
PFT Interpretation This is a pulmonary function test with spirometry, plethysmography and diffusing capacity. The test was performed and results interpreted in accordance with the 2019 and 2005 ATS/ERS Task Force guidelines respectively using the Rickey/Polmattie reference equations. Findings: Spirometry: The contour of the expiratory flow tracing is that of a whitch's hat . The contour the inspiratory flow tracing is normal. The FVC is 2.13 L, 62% predicted. The FEV1 is 1.63 L, 77% predicted. The FEV1: FVC ratio is 77%. Plethysmography: The total lung capacity is 3.90 L, 73% predicted. The functional residual capacity is 1.67 L, 57% predicted. The residual volume is 1.50, 60% predicted. Plethysmography the total the absolute diffusion capacity is 13.2, 74% predicted. The diffusing capacity corrected for alveolar volume is 3.78, 118% predicted. Impression: There is a mild restrictive ventilatory abnormality. The spirometry is normal without evidence of an obstructive abnormality. The absolute diffusing capacity is mildly decreased and normalizes when corrected for alveolar volume. There are no prior studies for comparison
== END 2020-11-20 12:43 | disposition home or self-care (01) ==
PROVIDERS: PCP Family Medicine; Visit Provider Family Medicine
DX: R06.02 Shortness of breath (principal); R94.2 Abnormal results of pulmonary function studies
CPT/HCPCS: 94375; 94618; 94726; 94729

== ENCOUNTER 2021-05-06 09:16 | Outpatient (CLI) | payer MEDICARE, SELFPAY ==
[2021-05-06 09:52] LABS: Alanine Aminotransferase 32 U/L (4-50); Albumin Level 4.2 g/dL (3.5-5.1); Alkaline Phosphatase 65 U/L (38-126); Anion Gap 11 mmol/L (8-16); Aspartate Amino Transferase 38 U/L (17-59); Bilirubin,Total 0.5 mg/dL (0.2-1.3); Blood Urea Nitrogen 15 mg/dL (9-20); Calcium 9.5 mg/dL (8.4-10.2); Carbon Dioxide 28 mmol/L (22-30); Chloride 101 mmol/L (98-107); Cholesterol 164 mg/dL (0-200); Estimated Glomerular Filt Rate > 60; Glucose 173 mg/dL (65-110); HDL Direct 32 mg/dL; Potassium 3.9 mmol/L (3.4-5.0); Sodium 140 mmol/L (137-145); Triglycerides 194 mg/dL (<150)
[2021-05-06 10:04] LABS: LDL Cholesterol Direct 84 mg/dL
[2021-05-06 11:53] LABS: Free T4 Free Thyroxine 1.08 ng/mL (0.78-2.19)
== END 2021-05-06 09:17 | disposition home or self-care (01) ==
PROVIDERS: PCP Family Medicine; Visit Provider Family Medicine
DX: Z79.899 Other long term (current) drug therapy (principal); I10 Essential (primary) hypertension
CPT/HCPCS: 36415; 80053; 80061; 84439; 84443

== ENCOUNTER 2021-05-07 12:15 | Outpatient (CLI) | payer MEDICARE, SELFPAY ==
[2021-05-07 12:54] LABS: Basophils Absolute Auto 0.1 K/mm3 (0.0-0.1); Basophils Percent Auto 0.7 % (0.2-1.2); Eosinophils Absolute Auto 0.7 K/mm3 (0-0.3); Eosinophils Percent Auto 7.4 % (0-4.4); Hematocrit 46.5 % (42.0-52.0); Hemoglobin 15.7 g/dL (14.0-18.0); Immature Granulocyte Absolute 0.04 K/mm3 (0.00-0.031); Immature Granulocyte Percent A 0.5 % (0-0.5); Lymphocytes Absolute Auto 1.95 K/mm3 (0.9-3.2); Lymphocytes Percent Auto 22.2 % (18.3-44.2); Mean Corpuscular HGB Conc 33.8 g/dl (32-36); Mean Corpuscular Hemoglobin 29.5 pg (26-34); Mean Corpuscular Volume 87.4 fl (80-100); Mean Platelet Volume 9.5 fl (7.4-10.4); Monocytes Absolute Auto 0.8 K/mm3 (0.1-0.6); Monocytes Percent Auto 8.8 % (2.6-8.5); Neutrophils Absolute Auto 5.3 K/mm3 (1.3-6.7); Neutrophils Percent Auto 60.4 % (45.5-73.1); Platelet Count Result 336 k/mm3 (150-375); Red Blood Count 5.32 M/mm3 (4.6-6.20); Red Cell Distribution Width 13.1 % (11.5-14.5); White Blood Count 8.8 K/mm3 (4.5-10.0)
== END 2021-05-07 12:16 | disposition home or self-care (01) ==
PROVIDERS: PCP Family Medicine; Visit Provider Family Medicine
DX: R73.09 Other abnormal glucose (principal); I10 Essential (primary) hypertension; Z51.81 Encounter for therapeutic drug level monitoring; Z79.899 Other long term (current) drug therapy
CPT/HCPCS: 36415; 83036; 85025

== ENCOUNTER 2021-05-10 09:14 | Outpatient (CLI) | payer MEDICARE, SELFPAY ==
--- NOTE | ~2021-05-10 | MR_ITS ---
EXAMINATION: MR brain/brain stem wo con EXAM DATE: 05/10/2021 10:24 INDICATION: F03.90 - Unspecified dementia without behavioral disturbance. TECHNIQUE: Magnetic resonance imaging (MRI) of the brain/brain stem obtained without contrast. Sagitt al T1, axial diffusion, gradient echo (T2*), T1, T2, FLAIR sequences obtained. Correlation is made t o CTA brain and carotid from 03/28/2020. Comparison is made to prior examination from 09/25/2014. FINDINGS: There are no areas of restricted diffusion to suggest acute infarction. There is no acute hemorrhage seen on the T2*, a hemosiderin sensitive sequence. No intraparenchymal brain mass lesion. There is moderate periventricular and subcortical T2/FLAIR signal hyperintensity, nonspecific but pr obably related to small vessel ischemic disease (microangiopathy). There is moderate prominence of the sulci and ventricles related to cerebral atrophy. There are no extra-axial collections. Flow v oids are seen in the cerebral arteries on the T2-weighted sequences consistent with their expected pa tency. The orbits are unremarkable. Soft tissue is unremarkable. Compared to 2013, some progressio n in the intracranial senescent changes. IMPRESSION: 1. No acute intracranial findings. 2. Chronic age related findings. Reviewed, dictated and finalized at location B.
== END 2021-05-10 09:15 | disposition home or self-care (01) ==
LOC: ANHIMG 09:16
PROVIDERS: PCP Family Medicine; Visit Provider Family Medicine
DX: F03.90 Unspecified dementia, unspecified severity, without behavioral disturbance, psychotic disturbance, mood disturbance, and anxiety (principal)
CPT/HCPCS: 70551

== ENCOUNTER 2021-05-11 10:18 | Outpatient (CLI) | payer MEDICARE, SELFPAY ==
--- NOTE | ~2021-05-11 | XR_ITS ---
EXAMINATION: XR thoracic spine 3V DATE: 05/11/2021 10:50 INDICATION: Thoracic back pain TECHNIQUE: AP, lateral and lateral swimmer's views of the thoracic spine were obtained. COMPARISON: None. FINDINGS: There are age indeterminate compression fractures of the lower thoracic spine, possibly inv olving T10 and T11 vertebral bodies. The thoracic vertebral body heights are otherwise maintained. Th ere is mild loss of intervertebral disc space height at multiple levels in the midthoracic spine. Bon e alignment is normal. IMPRESSION: 1. Age-indeterminate lower thoracic compression fractures, possibly T10 and T11. Reviewed, dictated and finalized at location A. IMPRESSION: 1. Age-indeterminate lower thoracic compression fractures, possibly T10 and T11 .
--- NOTE | ~2021-05-11 | XR_ITS ---
EXAMINATION: XR lumbar spine 2-3V DATE: 05/11/2021 10:51 INDICATION: Low back pain TECHNIQUE: Anteroposterior and lateral views of the lumbar spine, and cone-down lateral view of the l umbosacral junction were obtained. COMPARISON: MRI, 11/25/2017 FINDINGS: There is severe loss of intervertebral disc space height at L2-3, moderate loss of interver tebral disc space height at L4-5, and mild loss of the space height throughout the remainder of the l umbar spine. Vertebral body heights are maintained. There is no fracture. There are 2 mm of unchanged retrolisthesis of L2 on L3. There is severe facet osteoarthritis of the lower lumbar spine. Small de generative osteophytes project from the anterior endplates of multiple vertebral bodies. Calcified at herosclerosis is noted. There are changes of right hip arthroplasty. IMPRESSION: 1. Severe lumbar spondylosis without acute findings or significant interval change. Reviewed, dictated and finalized at location A. IMPRESSION: 1. Severe lumbar spondylosis without acute findings or significant interval lexie nge.
== END 2021-05-11 10:19 | disposition home or self-care (01) ==
PROVIDERS: PCP Family Medicine; Visit Provider Physician Assistant
DX: M47.816 Spondylosis without myelopathy or radiculopathy, lumbar region (principal)
CPT/HCPCS: 72072; 72100

== ENCOUNTER 2021-06-01 15:50 | Outpatient (CLI) | payer MEDICARE, SELFPAY ==
[2021-06-01 16:19] LABS: Anion Gap 7 mmol/L (8-16); Blood Urea Nitrogen 20 mg/dL (9-20); Calcium 10.2 mg/dL (8.4-10.2); Carbon Dioxide 31 mmol/L (22-30); Chloride 102 mmol/L (98-107); Estimated Glomerular Filt Rate > 60; Glucose 119 mg/dL (65-110); Sodium 140 mmol/L (137-145)
== END 2021-06-01 15:51 | disposition home or self-care (01) ==
LOC: ANHLAB 15:52
PROVIDERS: PCP Family Medicine; Visit Provider Physician Assistant
DX: E11.65 Type 2 diabetes mellitus with hyperglycemia (principal)
CPT/HCPCS: 36415; 80048

== ENCOUNTER → 2021-10-15 00:22 | Outpatient (CLI) | payer MEDICARE, SELFPAY ==
[2021-10-15 20:43] LABS: SARS-CoV-2 RNA PCR Negative
== END ==
PROVIDERS: PCP Family Medicine; Visit Provider Physician Assistant
DX: R05.9 Cough, unspecified (principal); R09.81 Nasal congestion; Z20.822 Contact with and (suspected) exposure to COVID-19
CPT/HCPCS: C9803; U0003; U0005

== ENCOUNTER 2021-10-28 16:23 | Outpatient (CLI) | payer MEDICARE, SELFPAY ==
--- NOTE | ~2021-10-28 | XR_ITS ---
XR chest 2V DATE: 10/28/2021 16:46 INDICATION: Cough, chest pain TECHNIQUE: PA and lateral views COMPARISON: 09/21/2017 two-view chest FINDINGS: Status post sternotomy and coronary bypass graft surgery. Normal heart size. There is aorti c calcification and mild unfolding. No hilar or mediastinal enlargement. Chronic mild elevation of left diaphragm. No pulmonary infiltrate or consolidation, pleural effusion or pulmonary vascular congestion or pneumothorax is detected. Diffuse osteopenia. Thoracic and lumbar scoliosis and degenerative change. There are 2 contiguous low er thoracic compression fracture deformities. IMPRESSION: No active cardiopulmonary disease Reviewed, dictated and finalized at location J. CRUSHER
== END 2021-10-28 16:24 | disposition home or self-care (01) ==
LOC: ANHLAB 16:29
PROVIDERS: PCP Family Medicine; Visit Provider Physician Assistant
DX: R05.9 Cough, unspecified (principal)
CPT/HCPCS: 71046

== ENCOUNTER 2022-02-22 08:03 | Outpatient (CLI) | payer MEDICARE, SELFPAY ==
[2022-02-22 08:54] LABS: Basophils Absolute Auto 0.1 K/mm3 (0.0-0.1); Basophils Percent Auto 0.6 % (0.2-1.2); Eosinophils Absolute Auto 0.3 K/mm3 (0-0.3); Eosinophils Percent Auto 3.9 % (0-4.4); Hematocrit 45.6 % (42.0-52.0); Hemoglobin 15.3 g/dL (14.0-18.0); Immature Granulocyte Absolute 0.02 K/mm3 (0.00-0.031); Immature Granulocyte Percent A 0.2 % (0-0.5); Lymphocytes Absolute Auto 2.45 K/mm3 (0.9-3.2); Lymphocytes Percent Auto 30.6 % (18.3-44.2); Mean Corpuscular HGB Conc 33.6 g/dl (32-36); Mean Corpuscular Hemoglobin 29.7 pg (26-34); Mean Corpuscular Volume 88.5 fl (80-100); Mean Platelet Volume 10.2 fl (7.4-10.4); Neutrophils Absolute Auto 4.2 K/mm3 (1.3-6.7); Neutrophils Percent Auto 52.7 % (45.5-73.1); Platelet Count Result 236 k/mm3 (150-375); Red Blood Count 5.15 M/mm3 (4.6-6.20); Red Cell Distribution Width 13.2 % (11.5-14.5)
[2022-02-22 09:06] LABS: Anion Gap 9 mmol/L (8-16); Blood Urea Nitrogen 21 mg/dL (9-20); Calcium 9.2 mg/dL (8.4-10.2); Carbon Dioxide 29 mmol/L (22-30); Chloride 101 mmol/L (98-107); Estimated Glomerular Filt Rate > 60; Glucose 131 mg/dL (65-110); Potassium 3.7 mmol/L (3.4-5.0); Sodium 139 mmol/L (137-145)
[2022-02-22 09:12] LABS: NT Pro B Type Natriuretic Pept 233 pg/mL (5-100)
== END 2022-02-22 08:04 | disposition home or self-care (01) ==
LOC: ANHLAB 08:08
PROVIDERS: PCP Family Medicine; Visit Provider Internal Medicine Cardiovascular Disease
DX: R06.00 Dyspnea, unspecified (principal)
CPT/HCPCS: 36415; 80048; 83880; 85025

== ENCOUNTER 2022-05-31 10:27 | Outpatient (CLI) | payer MEDICARE, SELFPAY ==
[2022-05-31 10:57] LABS: Basophils Percent Auto 0.6 % (0.2-1.2); Eosinophils Absolute Auto 0.5 K/mm3 (0-0.3); Eosinophils Percent Auto 6.8 % (0-4.4); Hematocrit 46.7 % (42.0-52.0); Hemoglobin 15.4 g/dL (14.0-18.0); Immature Granulocyte Absolute 0.03 K/mm3 (0.00-0.031); Immature Granulocyte Percent A 0.4 % (0-0.5); Lymphocytes Absolute Auto 1.83 K/mm3 (0.9-3.2); Lymphocytes Percent Auto 27.1 % (18.3-44.2); Mean Corpuscular Hemoglobin 29.4 pg (26-34); Mean Corpuscular Volume 89.1 fl (80-100); Mean Platelet Volume 9.6 fl (7.4-10.4); Monocytes Absolute Auto 0.7 K/mm3 (0.1-0.6); Monocytes Percent Auto 10.5 % (2.6-8.5); Neutrophils Absolute Auto 3.7 K/mm3 (1.3-6.7); Neutrophils Percent Auto 54.6 % (45.5-73.1); Platelet Count Result 254 k/mm3 (150-375); Red Blood Count 5.24 M/mm3 (4.6-6.20); Red Cell Distribution Width 13.4 % (11.5-14.5); White Blood Count 6.8 K/mm3 (4.5-10.0)
[2022-05-31 11:05] LABS: Hemoglobin A1C 6.3 % (<5.7)
[2022-05-31 11:08] LABS: Alanine Aminotransferase 20 U/L (6-50); Albumin Level 4.6 g/dL (3.5-5.1); Alkaline Phosphatase 52 U/L (38-126); Anion Gap 10 mmol/L (8-16); Aspartate Amino Transferase 29 U/L (17-59); Bilirubin,Total 0.6 mg/dL (0.2-1.3); Blood Urea Nitrogen 18 mg/dL (9-20); Calcium 9.6 mg/dL (8.4-10.2); Carbon Dioxide 29 mmol/L (22-30); Chloride 96 mmol/L (98-107); Cholesterol 198 mg/dL (0-200); Estimated Glomerular Filt Rate > 60; Glucose 125 mg/dL (65-110); HDL Direct 43 mg/dL; Sodium 135 mmol/L (137-145); Triglycerides 183 mg/dL (<150)
[2022-05-31 11:19] LABS: LDL Cholesterol Direct 106 mg/dL
[2022-05-31 11:35] LABS: Creatinine Urine 130.1 mg/dL
[2022-05-31 11:38] LABS: Prostate Specific Antigen 1.5 ng/mL (< OR = 4.0)
[2022-05-31 11:39] LABS: MALB Creatinine Ratio 4.8 mg/g (0-30); Microalbumin Urine Random 6.3 mg/L (0-16.7)
[2022-05-31 12:31] LABS: Vitamin D 25 Hydroxy 58.4 ng/mL
== END 2022-05-31 10:28 | disposition home or self-care (01) ==
LOC: ANHLAB 10:35
PROVIDERS: PCP Family Medicine; Visit Provider Family Medicine
DX: E11.65 Type 2 diabetes mellitus with hyperglycemia (principal); Z79.899 Other long term (current) drug therapy; Z12.5 Encounter for screening for malignant neoplasm of prostate
CPT/HCPCS: 36415; 80053; 80061; 82043; 82306; 82607; 82728; 83036; 84153; 85025; G0103

== ENCOUNTER 2022-10-25 10:08 | Outpatient (CLI) | payer MEDICARE, SELFPAY ==
[2022-10-25 10:48] LABS: Alanine Aminotransferase 29 U/L (6-50); Albumin Level 4.6 g/dL (3.5-5.1); Alkaline Phosphatase 58 U/L (38-126); Anion Gap 10 mmol/L (8-16); Aspartate Amino Transferase 40 U/L (17-59); Bilirubin,Total 0.5 mg/dL (0.2-1.3); Blood Urea Nitrogen 20 mg/dL (9-20); Calcium 9.6 mg/dL (8.4-10.2); Carbon Dioxide 28 mmol/L (22-30); Chloride 99 mmol/L (98-107); Cholesterol 195 mg/dL (0-200); Estimated Glomerular Filt Rate > 60; Glucose 132 mg/dL (65-110); HDL Direct 37 mg/dL; Potassium 4.2 mmol/L (3.4-5.0); Sodium 137 mmol/L (137-145); Triglycerides 314 mg/dL (<150)
[2022-10-25 10:59] LABS: LDL Cholesterol Direct 89 mg/dL
[2022-10-25 11:36] LABS: Hemoglobin A1C 6.4 % (<5.7)
== END 2022-10-25 10:09 | disposition home or self-care (01) ==
PROVIDERS: PCP Family Medicine; Visit Provider Family Medicine
DX: E78.5 Hyperlipidemia, unspecified (principal); I10 Essential (primary) hypertension; E11.65 Type 2 diabetes mellitus with hyperglycemia
CPT/HCPCS: 36415; 80053; 80061; 83036

== ENCOUNTER 2022-11-17 10:56 | Emergency (ER) | payer MEDICARE, SELFPAY ==
--- NOTE | ~2022-11-17 | CT_ITS ---
EXAMINATION: CT brain wo con INDICATION: Head injury COMPARISON: 03/28/2020 TECHNIQUE: Standard unenhanced head CT. The dose-length product (DLP) was 605.33 mGy-cm. The mA was a djusted according to patient size. Iterative reconstruction technique was employed. FINDINGS: There is no acute intraparenchymal hemorrhage. No evidence of mass lesion. No evidence of a cute infarction. Evaluation. Cranial vertex is somewhat limited by motion artifact. There is mild per iventricular and subcortical hypodensity probably related to small vessel ischemic disease. There is moderate prominence of the sulci and ventricles related to cerebral atrophy. Intracranial calcified c erebral atherosclerosis is noted. There are no extra-axial collections. There is no mass effect or mi dline shift. Changes in the globes are likely from ocular lens surgery. There is mild mucosal thicken ing of the paranasal sinuses. IMPRESSION: 1. No acute intracranial abnormality. 2. Age related findings. Reviewed, dictated and finalized at location L. N RECEIVER
--- NOTE | ~2022-11-17 | XR_ITS ---
EXAMINATION: 1. XR femur RT min 2V 2. XR pelvis 1-2V DATE: 11/17/2022 16:11 INDICATION: Right hip and leg pain. TECHNIQUE: 2 views of right femur on 4 radiographs were obtained. A single view of right pelvis was o btained. COMPARISON: Right hip radiographs 01/06/2011 FINDINGS: RIGHT FEMUR: There is a total right hip arthroplasty in near-anatomic alignment. There is 2 mm lucenc y adjacent to the femoral component proximally and medially. There is a lateral plate with multiple c bing around proximal femur. No fracture. There is mild right knee joint osteoarthritis. No knee join t effusion. There are surgical clips in the thigh. PELVIS: Bone alignment is normal. No fracture. There is mild left hip osteoarthritis. There is modera te lumbar spondylosis. IMPRESSION: 1. Total right hip arthroplasty with lucency adjacent to the femoral component proximally and mediall y. Comparison with postoperative radiographs is recommended to determine if this is the normal postop erative appearance or a sign of loosening or infection. 2. Mild left hip and right knee osteoarthritis. Reviewed, dictated and finalized at location A. ORT REPRESENTATIVE IMPRESSION: 1. Total right hip arthroplasty with lucency adjacent to the femoral component proximally and medially. Comparison with postoperative radiographs is recommend ed to determine if this is the normal postoperative appearance or a sign of loo sening or infection. 2. Mild left hip and right knee osteoarthritis.
--- NOTE | ~2022-11-17 | XR_ITS ---
AP and lateral views of the right hip Clinical history: Pain Findings: No acute fracture or dislocation is seen. Extensive orthopedic hardware is present, includi ng right hip total arthroplasty as well as additional fixation plate with cerclage wires at the proxi mal femoral shaft/greater trochanter. There is apparent fracture one of the cerclage wires. Degenerat marily change of the right SI joint noted. Soft tissues are unremarkable. Impression: No acute abnormality evident. Extensive orthopedic hardware about the right hip, as detailed above. There is apparent fracture of o ne of the cerclage wires. Mild right SI joint degenerative change. Reviewed, dictated and finalized at location M. S CUTTER HELPER Impression: No acute abnormality evident. Extensive orthopedic hardware about the right hip, as detailed above. There is apparent fracture of one of the cerclage wires. Mild right SI joint degenerative change.
[2022-11-17 11:23] VITALS: BP 128/67; PULSE 91; RESP 18; TEMP 36.6; O2SAT 95
--- NOTE | 2022-11-17 17:10 | ED.GENADULT ---
HPI - General Adult General Chief complaint: Extremity Injury, Lower Stated complaint: R. hip pain Time Seen by Provider: 11/17/22 14:23 History of Present Illness HPI narrative: Patient is an 87-year-old male who presents ER status post fall 1 day ago. He was walking outside using 2 canes taking his dogs to use restroom when he slipped on some ice. He landed on his buttock. He did strike his head but not hard and did not lose consciousness. He is not on blood thinners. Reports he is able to get up with some help yesterday and ambulate. Today he is much more stiff and sore in the right hip and is having trouble getting around his home. He was brought here by family for further evaluation. His right hip has undergone 2 operations most recently by Dr. Mendes at [facility]. Related Data Home Medications Medication Instructions Recorded Confirmed aspirin 81 mg tablet,delayed 81 mg PO DAILY 09/09/19 11/15/22 release fluticasone furoate 100 1 inhalation inhalation DAILY PRN 09/09/19 11/15/22 mcg-vilanterol 25 mcg/dose congestion inhalation powder (Breo Ellipta) naproxen sodium 220 mg tablet 220 mg PO BID PRN Pain 09/09/19 11/15/22 (Aleve) pyridoxine (vitamin B6) 250 mg 250 mg PO DAILY 09/09/19 11/15/22 tablet cholecalciferol (vitamin D3) 50 50 mcg PO DAILY 11/29/19 11/15/22 mcg (2,000 unit) tablet cyanocobalamin (vitamin B-12) 1,000 mcg PO DAILY 11/29/19 11/15/22 1,000 mcg capsule magnesium 250 mg tablet 400 mg PO DAILY 04/01/20 11/15/22 vit C,E,zinc,copper-izrth9c 250 1 cap PO DAILY 04/01/20 11/15/22 mg-lutein 5 mg-zeaxanthin 1 mg capsule (Ocuvite Adult 50 Plus) vitamin E 200 unit capsule 200 unit PO DAILY 04/01/20 11/15/22 Allergies Allergy/AdvReac Type Severity Reaction Status Date / Time adhesive Allergy Mild BLISTERS Verified 11/15/22 13:29 codeine Allergy Mild Rash Verified 11/15/22 13:29 tetanus toxoid, adsorbed Allergy Mild BARB AREA Verified 11/15/22 13:29 tetracycline Allergy Mild Rash Verified 11/15/22 13:29 gadobenic acid Allergy Rash Verified 11/15/22 13:29 [From contrast - MRI] iohexol Allergy Rash Verified 11/15/22 13:29 [From contrast - CT, X-RAY] Review of Systems Review of Systems: All systems reviewed & are unremarkable except as noted in HPI and below Constitutional: Constitutional: Denies chills, Denies fatigue and Denies fever(s) ENT: Denies nasal congestion and Denies sore throat Cardiovascular: Cardiovascular: Denies chest pain, Denies rapid heart rate and Denies radiating jaw, neck or arm pain Respiratory: Respiratory: Denies cough and Denies dyspnea Musculoskeletal: Musculoskeletal: Denies back pain, Reports arthralgias and Denies joint swelling Neurologic: Denies syncope, Denies headache(s), Denies focal weakness and Denies numbness PMFSH Past Medical History Medical History Asthma Benign prostatic hyperplasia Chronic sinusitis Coronary artery disease Essential hypertension Gastroesophageal reflux disease History of benign bladder tumor (~2005) Biopsy revealed changes consistent with chronic inflammation as well as subacute and acute interstitial cystitis. Hyperlipidemia Irritable bowel syndrome Memory changes Osteoarthritis Peripheral neuropathy Surgical History Surgical History History of eye surgery (~11/2019) Right eye surgery to correct diplopia. History of right hip replacement (~11/2006) History of surgery on left wrist Related to wrist fracture. History of two vessel coronary artery bypass graft (~2005) Family History Family History Father Diabetes mellitus Family history of coronary artery disease Hypertension Sibling Family history of cardiovascular disease Malignant neoplasm of prostate Family history of elevated blood lipids Diabetes mellitus Family
[2022-11-17] MEDS: HYDROcodone/acetaminophen (*CRX) 5-325 MG TABLET 1 TAB PO (18:08)
[2022-11-17 18:25] VITALS: BP 125/65; PULSE 85; RESP 18; O2SAT 96
== END 2022-11-17 18:27 | disposition home or self-care (01) ==
PROVIDERS: Emergency Provider Emergency Medicine; PCP Family Medicine
DX: S70.01XA Contusion of right hip, initial encounter (principal); I25.10 Atherosclerotic heart disease of native coronary artery without angina pectoris; I10 Essential (primary) hypertension; N40.0 Benign prostatic hyperplasia without lower urinary tract symptoms; K21.9 Gastro-esophageal reflux disease without esophagitis; E78.5 Hyperlipidemia, unspecified; K58.9 Irritable bowel syndrome, unspecified; G62.9 Polyneuropathy, unspecified; M16.12 Unilateral primary osteoarthritis, left hip; M17.11 Unilateral primary osteoarthritis, right knee; Z96.641 Presence of right artificial hip joint; Z95.1 Presence of aortocoronary bypass graft; Z87.891 Personal history of nicotine dependence; Z79.82 Long term (current) use of aspirin; W00.0XXA Fall on same level due to ice and snow, initial encounter
CPT/HCPCS: 70450; 72170; 73502; 73552; 99284; A9270

== ENCOUNTER 2023-02-14 10:44 | Outpatient (CLI) | payer MEDICARE, SELFPAY ==
[2023-02-14 19:29] LABS: Hemoglobin A1C 6.2 % (<5.7)
[2023-02-14 19:33] LABS: Alanine Aminotransferase 29 U/L (6-50); Albumin Level 4.4 g/dL (3.5-5.1); Alkaline Phosphatase 53 U/L (38-126); Anion Gap 2 mmol/L (8-16); Aspartate Amino Transferase 48 U/L (17-59); Bilirubin,Total 0.7 mg/dL (0.2-1.3); Blood Urea Nitrogen 23 mg/dL (9-20); Calcium 9.6 mg/dL (8.4-10.2); Carbon Dioxide 37 mmol/L (22-30); Chloride 100 mmol/L (98-107); Cholesterol 141 mg/dL (0-200); Estimated Glomerular Filt Rate > 60; Glucose 120 mg/dL (65-110); HDL Direct 40 mg/dL; Potassium 4.6 mmol/L (3.4-5.0); Sodium 139 mmol/L (137-145); Triglycerides 141 mg/dL (<150)
[2023-02-14 19:44] LABS: LDL Cholesterol Direct 72 mg/dL
== END 2023-02-14 10:45 | disposition home or self-care (01) ==
LOC: ANHGOSHLAB 10:46
PROVIDERS: PCP Family Medicine; Visit Provider Physician Assistant
DX: E78.5 Hyperlipidemia, unspecified (principal); I10 Essential (primary) hypertension; E11.9 Type 2 diabetes mellitus without complications
CPT/HCPCS: 36415; 80053; 80061; 83036

== ENCOUNTER 2023-04-26 10:38 | Outpatient (CLI) | payer MEDICARE, SELFPAY ==
[2023-04-26 18:47] LABS: Alanine Aminotransferase 27 U/L (6-50); Albumin Level 4.2 g/dL (3.5-5.1); Alkaline Phosphatase 45 U/L (38-126); Anion Gap 2 mmol/L (8-16); Aspartate Amino Transferase 38 U/L (17-59); Bilirubin,Total 0.8 mg/dL (0.2-1.3); Blood Urea Nitrogen 26 mg/dL (9-20); Calcium 9.3 mg/dL (8.4-10.2); Carbon Dioxide 31 mmol/L (22-30); Chloride 101 mmol/L (98-107); Cholesterol 154 mg/dL (0-200); Estimated Glomerular Filt Rate > 60; Glucose 122 mg/dL (65-110); HDL Direct 38 mg/dL; Sodium 134 mmol/L (137-145); Triglycerides 154 mg/dL (<150)
[2023-04-26 18:57] LABS: LDL Cholesterol Direct 76 mg/dL
[2023-04-26 19:03] LABS: Hemoglobin A1C 6.3 % (<5.7)
== END 2023-04-26 10:39 | disposition home or self-care (01) ==
LOC: ANHGOSHLAB 10:39
PROVIDERS: PCP Family Medicine; Visit Provider Family Medicine
DX: E78.5 Hyperlipidemia, unspecified (principal); I10 Essential (primary) hypertension; E11.65 Type 2 diabetes mellitus with hyperglycemia
CPT/HCPCS: 36415; 80053; 80061; 83036

== ENCOUNTER 2023-06-13 14:38 | Emergency (ER) | payer MEDICARE, SELFPAY ==
[2023-06-13 14:47] VITALS: BP 133/88; PULSE 87; RESP 16; TEMP 37; O2SAT 94
--- NOTE | 2023-06-13 14:49 | ED.MALEGU ---
HPI - Male Genitourinary General Chief complaint: Urogenital-Male Stated complaint: Urinating blood Time Seen by Provider: 06/13/23 14:49 Source: patient and family Mode of arrival: ambulatory Limitations: no limitations History of Present Illness HPI Narrative: Patient is an 88 y/o Male that presents with pelvic pain yesterday and toña blood in urine this morning. Also reports legs feel weak and jello like . Denies any low back pain or fever. States he has intermittent severe pelvic pain, first episode was last night at dinner. States as the day goes his urine has looked more tea colored than bright red. Has a history of bladder mass biopsy in 2005 and has BPH. Is on Flomax daily. Also has a history of dementia, at bedside. Related Data Home Medications Medication Instructions Recorded Confirmed aspirin 81 mg tablet,delayed 81 mg PO DAILY 09/09/19 02/17/23 release fluticasone furoate 100 1 inhalation inhalation DAILY PRN 09/09/19 02/17/23 mcg-vilanterol 25 mcg/dose congestion inhalation powder (Breo Ellipta) pyridoxine (vitamin B6) 250 mg 250 mg PO DAILY 09/09/19 02/17/23 tablet cholecalciferol (vitamin D3) 50 50 mcg PO DAILY 11/29/19 02/17/23 mcg (2,000 unit) tablet cyanocobalamin (vitamin B-12) 1,000 mcg PO DAILY 11/29/19 02/17/23 1,000 mcg capsule magnesium 250 mg tablet 400 mg PO DAILY 04/01/20 02/17/23 vit C,E,zinc,copper-noqwp7s 250 1 cap PO DAILY 04/01/20 02/17/23 mg-lutein 5 mg-zeaxanthin 1 mg capsule (Ocuvite Adult 50 Plus) vitamin E 200 unit capsule 200 unit PO DAILY 04/01/20 02/17/23 metformin 500 mg tablet 500 mg PO DAILY 02/17/23 02/17/23 tamsulosin 0.4 mg capsule 0.4 mg PO DAILY 02/17/23 02/17/23 Allergies Allergy/AdvReac Type Severity Reaction Status Date / Time adhesive Allergy Mild BLISTERS Verified 06/13/23 14:55 codeine Allergy Mild Rash Verified 06/13/23 14:55 tetanus toxoid, adsorbed Allergy Mild BARB AREA Verified 08/29/23 14:55 tetracycline Allergy Mild Rash Verified 06/13/23 14:55 gadobenic acid Allergy Rash Verified 06/13/23 14:55 [From contrast - MRI] iohexol Allergy Rash Verified 06/13/23 14:55 [From contrast - CT, X-RAY] Review of Systems Review of Systems: All systems reviewed & are unremarkable except as noted in HPI and below Constitutional: Constitutional: Denies chills, Denies fever(s), Denies headache(s), Denies malaise and Denies weakness Eyes: Eyes: Denies change in vision, Denies eye discharge and Denies irritation ENT: Denies otalgia, Denies headache(s), Denies nasal congestion, Denies nasal discharge, Denies sinus pain and Denies sore throat Cardiovascular: Cardiovascular: Denies chest pain, Denies edema, Denies palpitations and Denies dyspnea Respiratory: Respiratory: Denies cough and Denies dyspnea Gastrointestinal: Gastrointestinal: Denies abdominal pain, Denies diarrhea, Denies nausea and Denies vomiting Genitourinary: Genitourinary: Reports hematuria, Denies dysuria, Denies flank pain, Denies urinary frequency, Denies urinary urgency and Reports other (pelvic pain) Musculoskeletal: Musculoskeletal: Denies back pain and Denies numbness Integumentary/Breasts: Skin/Breast: Denies pruritus and Denies rash Neurologic: Denies headache(s), Denies numbness and Denies weakness Psychiatric: Psychiatric: Reports no additional psychiatric complaints Endocrine: Endocrine: Denies palpitations PMFSH Past Medical History Medical History Asthma Benign prostatic hyperplasia Chronic sinusitis Coronary artery disease Essential hypertension Gastroesophageal reflux disease History of benign bladder tumor (~2005) Biopsy revealed changes consistent with chronic inflammation as well as subacute and acute interstitial cystitis. Hyperlipidemia Irritable bowel syndrome Memory changes Osteoarthritis Peripheral neuropathy Surgical History Surgical History (Reviewed 02/17/23 @ 14:30 by Jennifer
== END 2023-06-13 15:14 | disposition short-term general hospital (02) ==
LOC: EXPGOSH 14:42
PROVIDERS: Emergency Provider Nurse Practitioner Family; PCP Family Medicine
DX: R31.9 Hematuria, unspecified (principal); J45.909 Unspecified asthma, uncomplicated; N40.0 Benign prostatic hyperplasia without lower urinary tract symptoms; I25.10 Atherosclerotic heart disease of native coronary artery without angina pectoris; I10 Essential (primary) hypertension; K21.9 Gastro-esophageal reflux disease without esophagitis; E78.5 Hyperlipidemia, unspecified; M19.90 Unspecified osteoarthritis, unspecified site; G62.9 Polyneuropathy, unspecified; Z96.641 Presence of right artificial hip joint; Z87.891 Personal history of nicotine dependence; Z79.82 Long term (current) use of aspirin
CPT/HCPCS: 81003; 99212; G0463

== ENCOUNTER 2023-06-13 15:56 | Emergency (ER) | payer MEDICARE, SELFPAY ==
[2023-06-13 16:02] VITALS: BP 129/67; PULSE 89; RESP 18; TEMP 36.2; O2SAT 96
--- NOTE | 2023-06-13 20:13 | PC.NURSE ---
patient leaving at this time. patient alert and oriented x4.
== END 2023-06-13 20:13 | disposition left against medical advice (07) ==
LOC: ANHED 20:26
PROVIDERS: PCP Family Medicine
DX: R31.9 Hematuria, unspecified (principal)
CPT/HCPCS: 99199

== ENCOUNTER 2023-06-14 14:52 | Outpatient (NON) | payer MEDICARE, SELFPAY ==
[2023-06-14 19:11] LABS: Appearance Urine Turbid (Clear); Bacteria Urine 4+ /hpf; Bilirubin Urine Negative (Negative); Blood Urine 3+ (Negative); Color Urine Dark Yellow (Yellow); Glucose Urine UA Negative (Negative); Ketones Urine Negative (Negative); Leukocyte Esterase Ur 3+ LEU/UL (Negative); Need Manual Microscopic Reviewed; Nitrate Urine Positive (Negative); Non Pathogenic Casts >20; Protein Urine 2+ mg/dL (Negative); RBC Urine >100 /hpf (0-2); Squamous Epithelial Cell Urine None seen /hpf (Few); WBC Urine >100 /hpf
[2023-06-14 19:15] LABS: Add Urine Microscopic? YES
== END 2023-06-14 14:53 | disposition home or self-care (01) ==
LOC: ANHGOSHLAB 14:56
PROVIDERS: PCP Family Medicine; Visit Provider Nurse Practitioner
DX: R31.9 Hematuria, unspecified (principal)
CPT/HCPCS: 81001; 87077; 87086; 87186

== ENCOUNTER → 2023-06-14 14:55 | Outpatient (CLI) | payer MEDICARE, SELFPAY ==
--- NOTE | ~2023-06-14 | XR_ITS ---
EXAM: XR abdomen/kub 1V DATE: 06/14/2023 15:11 HISTORY: hematuria . COMPARISON: None available. FINDINGS: Senescent change in the lung bases. Sternotomy wires. Surgical clips over the GE junction and inguinal canals. Partially visualized right hip hardware. Lumbar scoliosis and degenerative disc disease. No abnormal calcifications. Normal bowel gas pattern. Mild left hip osteoarthritis. IMPRESSION: Unremarkable abdominal radiograph findings. Reviewed, dictated and finalized at location K.
== END ==
PROVIDERS: PCP Nurse Practitioner; Visit Provider Nurse Practitioner
DX: R31.9 Hematuria, unspecified (principal)
CPT/HCPCS: 74018

== ENCOUNTER 2023-11-14 12:50 | Outpatient (CLI) | payer MEDICARE, SELFPAY ==
[2023-11-14 14:34] LABS: Hematocrit 48.2 % (42.0-52.0); Hemoglobin 15.3 g/dL (14.0-18.0); Mean Corpuscular HGB Conc 31.7 g/dl (32-36); Mean Corpuscular Hemoglobin 29.1 pg (26-34); Mean Corpuscular Volume 91.8 fl (80-100); Mean Platelet Volume 10.4 fl (7.4-10.4); Platelet Count Result 273 k/mm3 (150-375); Red Blood Count 5.25 M/mm3 (4.6-6.20); Red Cell Distribution Width 13.3 % (11.5-14.5); White Blood Count 6.4 K/mm3 (4.5-10.0)
[2023-11-14 15:29] LABS: Hemoglobin A1C 6.7 % (<5.7)
[2023-11-14 16:33] LABS: Alanine Aminotransferase 52 U/L (6-50); Albumin Level 4.4 g/dL (3.5-5.1); Alkaline Phosphatase 129 U/L (38-126); Anion Gap 8 mmol/L (8-16); Aspartate Amino Transferase 73 U/L (17-59); Bilirubin,Total 0.9 mg/dL (0.2-1.3); Blood Urea Nitrogen 19 mg/dL (9-20); Calcium 10.1 mg/dL (8.4-10.2); Carbon Dioxide 34 mmol/L (22-30); Chloride 99 mmol/L (98-107); Cholesterol 157 mg/dL (0-200); Estimated Glomerular Filt Rate > 60; Glucose 122 mg/dL (65-110); HDL Direct 43 mg/dL; Sodium 141 mmol/L (137-145); Triglycerides 174 mg/dL (<150)
[2023-11-14 16:44] LABS: LDL Cholesterol Direct 78 mg/dL
== END 2023-11-14 12:51 | disposition home or self-care (01) ==
LOC: ANHGOSHLAB 12:53
PROVIDERS: PCP Family Medicine; Visit Provider Family Medicine
DX: E11.65 Type 2 diabetes mellitus with hyperglycemia (principal); E78.5 Hyperlipidemia, unspecified; I10 Essential (primary) hypertension
CPT/HCPCS: 36415; 80053; 80061; 83036; 84443; 85027

== ENCOUNTER 2023-12-11 09:33 | Outpatient (CLI) | payer MEDICARE, SELFPAY ==
[2023-12-11 17:12] LABS: Alanine Aminotransferase 45 U/L (6-50); Albumin Level 4.4 g/dL (3.5-5.1); Alkaline Phosphatase 108 U/L (38-126); Anion Gap 8 mmol/L (8-16); Aspartate Amino Transferase 70 U/L (17-59); Bilirubin,Total 0.7 mg/dL (0.2-1.3); Blood Urea Nitrogen 22 mg/dL (9-20); Calcium 10.1 mg/dL (8.4-10.2); Carbon Dioxide 29 mmol/L (22-30); Chloride 102 mmol/L (98-107); Estimated Glomerular Filt Rate > 60; Glucose 125 mg/dL (65-110); Sodium 139 mmol/L (137-145)
== END 2023-12-11 09:34 | disposition home or self-care (01) ==
LOC: ANHGOSHLAB 09:35
PROVIDERS: PCP Family Medicine; Visit Provider Family Medicine
DX: R74.8 Abnormal levels of other serum enzymes (principal)
CPT/HCPCS: 36415; 80053

== ENCOUNTER 2024-01-18 13:01 | Emergency (ER) | payer MEDICARE, SELFPAY ==
--- NOTE | ~2024-01-18 | XR_ITS ---
EXAMINATION: [id number] DATE: 01/18/2024 13:56 INDICATION: Left rib pain. Fall. TECHNIQUE: A frontal view of the chest and 2 views on 3 radiographs of the left ribs were obtained. COMPARISON: None. FINDINGS: There is mild elevation of left hemidiaphragm. There is mild atelectasis at left lung base. No pleural effusion or pneumothorax. The heart size is normal. Median sternotomy wires and mediastin al surgical clips are seen, likely from prior coronary artery bypass grafting. There is no rib fractu re. IMPRESSION: 1. No rib fracture. 2. Mild elevation of left hemidiaphragm with mild atelectasis at left lung base. Reviewed, dictated and finalized at location A. IMPRESSION: 1. No rib fracture. 2. Mild elevation of left hemidiaphragm with mild atelectasis at left lung base .
--- NOTE | ~2024-01-18 | XR_ITS ---
EXAMINATION: XR thoracic spine 3V DATE: 01/18/2024 13:56 INDICATION: Back injury and pain. TECHNIQUE: 3 views of thoracic spine on 4 radiographs were obtained. COMPARISON: None. FINDINGS: There is 11 degrees dextroscoliosis of thoracic spine. There are chronic compression fractu res of T11 and T12. There is mildly decreased disc height at many levels in thoracic spine. There are endplate osteophytes at most levels. Median sternotomy wires and mediastinal surgical clips are seen , likely from prior coronary artery bypass grafting. IMPRESSION: 1. Mild thoracic spondylosis. 2. Thoracic dextroscoliosis. Reviewed, dictated and finalized at location A.
[2024-01-18 13:24] VITALS: BP 116/79; PULSE 76; RESP 20; TEMP 36.9; O2SAT 97
--- NOTE | 2024-01-18 13:30 | ED.BACK ---
HPI - Back Pain/Injury General Chief Complaint: Back Pain/Injury Stated Complaint: Back Pain Time Seen by Provider: 01/18/24 13:30 Source: patient, RN notes reviewed and old records reviewed Mode of arrival: ambulatory Limitations: no limitations History of Present Illness HPI Narrative: 88 year old male accompanied by presents to [facility] using 2 canes to enter building and placed in wheelchair for visit and transport to x-ray with complaints of falling his home in the bedroom Monday evening. Patient has history of some dementia and cares for him at home he's forgetful but pleasant and cooperative. Patient reports that he was walking around in his bedroom without his walker and he fell hitting his thoracic back on the foot board of bed. Patient reports pain to left thoracic back region, patient able to move all extremities on own power. reports that she has been giving patient some Tylenol for his discomfort and patient takes daily Naproxen for his arthritis MD elicited complaint: back pain and fall Pertinent past history: prior back pain, arthritis and other (prior back injury) Onset (ago): day(s) (2) Timing: intermittent Pain scale (0-10): 5 Quality: spasming Location: thoracic spine Exacerbating factors: movement and walking Treatments prior to arrival: other (Tylenol) Work related injury: No Related Data Home Medications Medication Instructions Recorded Confirmed aspirin 81 mg tablet,delayed 81 mg PO DAILY 09/09/19 01/18/24 release fluticasone furoate 100 1 inhalation inhalation DAILY PRN 09/09/19 01/18/24 mcg-vilanterol 25 mcg/dose congestion inhalation powder (Breo Ellipta) pyridoxine (vitamin B6) 250 mg 250 mg PO DAILY 09/09/19 01/18/24 tablet cholecalciferol (vitamin D3) 50 50 mcg PO DAILY 11/29/19 01/18/24 mcg (2,000 unit) tablet cyanocobalamin (vitamin B-12) 1,000 mcg PO DAILY 11/29/19 01/18/24 1,000 mcg capsule magnesium 250 mg tablet 400 mg PO DAILY 04/01/20 01/18/24 vit C,E,zinc,copper-zonot9e 250 1 cap PO DAILY 04/01/20 01/18/24 mg-lutein 5 mg-zeaxanthin 1 mg capsule (Ocuvite Adult 50 Plus) vitamin E 200 unit capsule 200 unit PO DAILY 04/01/20 01/18/24 Allergies Allergy/AdvReac Type Severity Reaction Status Date / Time adhesive Allergy Mild BLISTERS Verified 01/18/24 13:18 codeine Allergy Mild Rash Verified 01/18/24 13:18 tetanus toxoid, adsorbed Allergy Mild BARB AREA Verified 01/18/24 13:18 tetracycline Allergy Mild Rash Verified 01/18/24 13:18 gadobenic acid Allergy Rash Verified 01/18/24 13:18 [From contrast - MRI] iohexol Allergy Rash Verified 01/18/24 13:18 [From contrast - CT, X-RAY] Review of Systems Review of Systems: CONSTITUTIONAL: Denies fever, chills, or sweats. EYES: Denies visual changes, redness, or discharge. ENT: Denies rhinorrhea, congestion, sore throat, or otalgia. CARDIOVASCULAR: Denies chest pain, palpitations, or edema. RESPIRATORY: Denies cough or dyspnea. GASTROINTESTINAL: Denies abdominal pain, nausea, vomiting, or diarrhea. GENITOURINARY: Denies dysuria or hematuria. SKIN: Denies rash or itching. MUSCULOSKELETAL: Reports left sided thoracic back pain since fall on Monday, or myalgia. NEUROLOGIC: Denies headache, numbness, or weakness. PSYCHIATRIC: history of anxiety or depression, dementia with patient cooperative but forgetful All systems reviewed & are unremarkable except as noted in HPI and below PMFSH Past Medical History Medical History (Updated 01/18/24 @ 18:31 by Nida Snell NP) Asthma Benign prostatic hyperplasia Chronic sinusitis Coronary artery disease Essential hypertension Gastroesophageal reflux disease History of benign bladder tumor (~2005) Biopsy revealed changes consistent with chronic inflammation as well as subacute and acute interstitial cystitis. Hyperlipidemia Irritable bowel syndrome Memory changes Osteoarthritis Peripheral neuropathy Surgical History Surgical History (Upda
== END 2024-01-18 14:35 | disposition home or self-care (01) ==
PROVIDERS: Emergency Provider Registered Nurse; PCP Family Medicine
DX: M54.6 Pain in thoracic spine (principal); W19.XXXA Unspecified fall, initial encounter; Z87.891 Personal history of nicotine dependence; J45.909 Unspecified asthma, uncomplicated; N40.0 Benign prostatic hyperplasia without lower urinary tract symptoms; I25.10 Atherosclerotic heart disease of native coronary artery without angina pectoris; I10 Essential (primary) hypertension; K21.9 Gastro-esophageal reflux disease without esophagitis; E78.5 Hyperlipidemia, unspecified; M19.90 Unspecified osteoarthritis, unspecified site; G62.9 Polyneuropathy, unspecified; Z96.1 Presence of intraocular lens; Z98.42 Cataract extraction status, left eye; Z98.41 Cataract extraction status, right eye; Z96.641 Presence of right artificial hip joint; Z79.82 Long term (current) use of aspirin
CPT/HCPCS: 71101; 72072; 99214; G0463

== ENCOUNTER 2024-04-24 08:29 | Outpatient (CLI) | payer MEDICARE, SELFPAY ==
[2024-04-24 12:51] LABS: Hematocrit 45.8 % (42.0-52.0); Hemoglobin 14.8 g/dL (14.0-18.0); Mean Corpuscular HGB Conc 32.3 g/dl (32-36); Mean Corpuscular Volume 92.7 fl (80-100); Mean Platelet Volume 10.9 fl (7.4-10.4); Platelet Count Result 250 k/mm3 (150-375); Red Blood Count 4.94 M/mm3 (4.6-6.20); Red Cell Distribution Width 13.4 % (11.5-14.5)
[2024-04-24 13:11] LABS: Alanine Aminotransferase 27 U/L (6-50); Albumin Level 4.5 g/dL (3.5-5.1); Alkaline Phosphatase 71 U/L (38-126); Anion Gap 11 mmol/L (4-12); Aspartate Amino Transferase 48 U/L (17-59); Bilirubin,Total 0.7 mg/dL (0.2-1.3); Blood Urea Nitrogen 21 mg/dL (9-20); Calcium 9.8 mg/dL (8.4-10.2); Carbon Dioxide 32 mmol/L (22-30); Chloride 99 mmol/L (98-107); Cholesterol 122 mg/dL (0-200); Estimated Glomerular Filt Rate > 60; Glucose 117 mg/dL (65-110); HDL Direct 40 mg/dL; Potassium 3.6 mmol/L (3.4-5.0); Sodium 142 mmol/L (137-145); Triglycerides 127 mg/dL (<150)
[2024-04-24 13:22] LABS: LDL Cholesterol Direct 71 mg/dL
[2024-04-24 21:31] LABS: Hemoglobin A1C 6.4 % (<5.7)
== END 2024-04-24 08:30 | disposition home or self-care (01) ==
PROVIDERS: PCP Family Medicine; Visit Provider Family Medicine
DX: E11.65 Type 2 diabetes mellitus with hyperglycemia (principal); E78.5 Hyperlipidemia, unspecified; I10 Essential (primary) hypertension
CPT/HCPCS: 36415; 80053; 80061; 83036; 84443; 85027

== ENCOUNTER 2024-07-02 10:18 | Emergency (ER) | payer MEDICARE, SELFPAY ==
[2024-07-02 10:33] VITALS: BP 124/68; PULSE 86; RESP 18; TEMP 36.6; O2SAT 96
[2024-07-02 10:46] VITALS: BP 124/68; PULSE 86; RESP 18; TEMP 36.6; O2SAT 96
--- NOTE | 2024-07-02 10:51 | ED.EAR ---
HPI - Ear Problem General Chief complaint: Ear Stated complaint: WEAKNESS/CAN'T WALK/EARACHE Time Seen by Provider: 07/02/24 10:51 Source: patient, RN notes reviewed and old records reviewed Mode of arrival: ambulatory Limitations: no limitations History of Present Illness HPI Narrative: 89-year-old male to [facility] with and daughter for complaint of right ear pain, intermittent dizziness, and issues with walking since Monday. His daughter states they called PCP and were advised to bring him to [facility]. Patient's daughter states that patient has history of recent memory issues and is a poor historian. patient's states that patient has had for surgical procedures done on his right hip with most recent being 6 years ago. Patient denies cough, fever, sore throat, shortness of breath, chest pain, GI complaints, lower extremity injury. When asked, patient states most bothersome complaint is right ear pain. Patient able to tolerate fluids by mouth. Patient resting comfortably in exam room in no acute distress. Respirations even and nonlabored. Related Data Home Medications Medication Instructions Recorded Confirmed aspirin 81 mg tablet,delayed 81 mg PO DAILY 09/09/19 07/02/24 release fluticasone furoate 100 1 inhalation inhalation DAILY PRN 09/09/19 07/02/24 mcg-vilanterol 25 mcg/dose congestion inhalation powder (Breo Ellipta) pyridoxine (vitamin B6) 250 mg 250 mg PO DAILY 09/09/19 07/02/24 tablet cholecalciferol (vitamin D3) 50 50 mcg PO DAILY 11/29/19 07/02/24 mcg (2,000 unit) tablet cyanocobalamin (vitamin B-12) 1,000 mcg PO DAILY 11/29/19 07/02/24 1,000 mcg capsule vit C,E,zinc,copper-iruqm7d 250 1 cap PO DAILY 04/01/20 07/02/24 mg-lutein 5 mg-zeaxanthin 1 mg capsule (Ocuvite Adult 50 Plus) ascorbate calcium (vitamin C) 500 500 mg PO DAILY 04/26/24 07/02/24 mg tablet docusate sodium 100 mg capsule 100 mg PO DAILY 04/26/24 07/02/24 (Colace) meclizine 12.5 mg tablet 12.5 mg PO TID PRN Dizziness 07/12/24 09/17/24 simvastatin 40 mg tablet 40 mg PO DAILY 04/26/24 07/02/24 Allergies Allergy/AdvReac Type Severity Reaction Status Date / Time adhesive Allergy Mild BLISTERS Verified 04/26/24 14:37 codeine Allergy Mild Rash Verified 04/26/24 14:37 tetanus toxoid, adsorbed Allergy Mild BARB AREA Verified 04/26/24 14:37 tetracycline Allergy Mild Rash Verified 04/26/24 14:37 gadobenic acid Allergy Rash Verified 04/26/24 14:37 [From contrast - MRI] iohexol Allergy Rash Verified 04/26/24 14:37 [From contrast - CT, X-RAY] Review of Systems Review of Systems: All systems reviewed & are unremarkable except as noted in HPI and below Constitutional: Constitutional: Reports no additional constitutional complaints Eyes: Eyes: Reports no additional eye complaints ENT: Reports system reviewed and no additional complaints, except as documented Cardiovascular: Cardiovascular: Reports no additional cardiovascular complaints, Denies chest pain and Denies dyspnea Respiratory: Respiratory: Reports no additional respiratory complaints, Denies cough and Denies dyspnea Musculoskeletal: Musculoskeletal: Reports no additional musculoskeletal complaints Neurologic: Reports system reviewed and no additional complaints, except as documented Psychiatric: Psychiatric: Reports no additional psychiatric complaints PMFSH Past Medical History Medical History Asthma Benign prostatic hyperplasia Chronic sinusitis Coronary artery disease Essential hypertension Gastroesophageal reflux disease History of benign bladder tumor (~2005) Biopsy revealed changes consistent with chronic inflammation as well as subacute and acute interstitial cystitis. Hyperlipidemia Irritable bowel syndrome Memory changes Osteoarthritis Peripheral neuropathy Surgical History Surgical History H/O cataract
== END 2024-07-02 11:18 | disposition home or self-care (01) ==
PROVIDERS: Emergency Provider Nurse Practitioner Family; PCP Family Medicine
DX: H66.91 Otitis media, unspecified, right ear (principal); M79.18 Myalgia, other site; Z87.891 Personal history of nicotine dependence; J45.909 Unspecified asthma, uncomplicated; N40.0 Benign prostatic hyperplasia without lower urinary tract symptoms; I25.10 Atherosclerotic heart disease of native coronary artery without angina pectoris; I10 Essential (primary) hypertension; K21.9 Gastro-esophageal reflux disease without esophagitis; E78.5 Hyperlipidemia, unspecified; M19.90 Unspecified osteoarthritis, unspecified site; G62.9 Polyneuropathy, unspecified; Z96.1 Presence of intraocular lens; Z98.42 Cataract extraction status, left eye; Z98.41 Cataract extraction status, right eye; Z96.641 Presence of right artificial hip joint; Z95.1 Presence of aortocoronary bypass graft
CPT/HCPCS: 99213; G0463

== ENCOUNTER 2024-07-12 14:09 | Outpatient (CLI) | payer MEDICARE, SELFPAY ==
--- NOTE | ~2024-07-12 | XR_ITS ---
XR tibia fibula RT 2V Ordering provider: Joanie Milligan DO History: . fall 2 months ago LOWER LEG PAIN . Comparison: None. FINDINGS: BONES: No acute fracture or dislocation. JOINT SPACES: Normal. SOFT TISSUES: Vascular calcifications. IMPRESSION: No acute osseous abnormality right leg. Reviewed, dictated and finalized at location A.
== END 2024-07-12 14:10 | disposition home or self-care (01) ==
PROVIDERS: PCP Nurse Practitioner; Visit Provider Family Medicine
DX: M79.661 Pain in right lower leg (principal)
CPT/HCPCS: 73590

== ENCOUNTER 2024-08-12 09:14 | Outpatient (CLI) | payer MEDICARE, SELFPAY ==
[2024-08-12 14:16] LABS: Hematocrit 44.4 % (42.0-52.0); Hemoglobin 14.1 g/dL (14.0-18.0); Mean Corpuscular HGB Conc 31.8 g/dl (32-36); Mean Corpuscular Hemoglobin 29.7 pg (26-34); Mean Corpuscular Volume 93.5 fl (80-100); Platelet Count Result 261 k/mm3 (150-375); Red Blood Count 4.75 M/mm3 (4.6-6.20); Red Cell Distribution Width 14.3 % (11.5-14.5); White Blood Count 6.2 K/mm3 (4.5-10.0)
[2024-08-12 14:43] LABS: Alanine Aminotransferase 36 U/L (6-50); Albumin Level 4.3 g/dL (3.5-5.1); Alkaline Phosphatase 75 U/L (38-126); Anion Gap 10 mmol/L (4-12); Aspartate Amino Transferase 59 U/L (17-59); Bilirubin,Total 0.6 mg/dL (0.2-1.3); Blood Urea Nitrogen 28 mg/dL (9-20); Calcium 9.6 mg/dL (8.4-10.2); Carbon Dioxide 29 mmol/L (22-30); Chloride 100 mmol/L (98-107); Cholesterol 155 mg/dL (0-200); Estimated Glomerular Filt Rate > 60; Glucose 118 mg/dL (65-110); HDL Direct 36 mg/dL; Sodium 139 mmol/L (137-145); Triglycerides 147 mg/dL (<150)
[2024-08-12 14:54] LABS: LDL Cholesterol Direct 74 mg/dL
[2024-08-12 14:59] LABS: Hemoglobin A1C 6.5 % (<5.7)
== END 2024-08-12 09:15 | disposition home or self-care (01) ==
LOC: ANHGOSHLAB 09:17
PROVIDERS: PCP Nurse Practitioner; Visit Provider Family Medicine
DX: E66.9 Obesity, unspecified (principal); E78.5 Hyperlipidemia, unspecified; I10 Essential (primary) hypertension; R74.8 Abnormal levels of other serum enzymes; Z79.899 Other long term (current) drug therapy
CPT/HCPCS: 36415; 80053; 80061; 83036; 84443; 85027

== ENCOUNTER 2024-11-06 14:25 | Outpatient (CLI) | payer MEDICARE, SELFPAY ==
--- NOTE | ~2024-11-06 | XR_ITS ---
EXAMINATION: [id number] DATE: 11/06/2024 16:03 INDICATION: Left knee pain. TECHNIQUE: 2 views of left knee were obtained. COMPARISON: None. FINDINGS: There is varus angulation at the knee. No fracture. There is severe osteoarthritis of media l compartment and mild osteoarthritis of lateral and patellofemoral compartments. There is a small kn ee joint effusion. There are surgical clips in the medial thigh and lower leg. IMPRESSION: 1. Severe left knee osteoarthritis. 2. Small left knee joint effusion. Reviewed, dictated and finalized at location B. DWORKS MECHANICAL DESIGNER
--- NOTE | ~2024-11-06 | XR_ITS ---
HISTORY: M54.6 - Pain in thoracic spine COMPARISON: Reference is made with plain x-rays of the thoracic and lumbar spines dated 05/11/2021 TECHNIQUE: 2 view thoracolumbar spine. FINDINGS: S shaped curvature of the thoracolumbar spine is identified. Further compression of the T10 vertebral body. Compared with examination dated 05/11/2021. Compression of the inferior endplate of L1 is identified, an interval change from 2020 examination. Bridging osteophytes are again identified at the level of L2/L3. Interval development of grade 1 retrolisthesis of L3 onto L4. IMPRESSION: Interval development of compression of the inferior endplate of L1, for which clinical evaluation of the presence or absence of point tenderness is recommended followed by cross-sectional imaging (CT or MRI) of the patient is clinically able. Reviewed, dictated and finalized at location A. ITIONIST IMPRESSION: Interval development of compression of the inferior endplate of L1, for which c linical evaluation of the presence or absence of point tenderness is recommende d followed by cross-sectional imaging (CT or MRI) of the patient is clinically able.
--- NOTE | ~2024-11-06 | XR_ITS ---
EXAMINATION: [id number] DATE: 11/06/2024 16:03 INDICATION: Right knee pain. TECHNIQUE: 2 views of right knee were obtained. COMPARISON: None. FINDINGS: Alignment is normal. No acute fracture. Partially visualized is an intramedullary leonides in fe moral diaphysis. There is mild tricompartmental osteoarthritis of the knee. No knee joint effusion. T here are surgical clips posterior medial to the knee. IMPRESSION: 1. Mild right knee osteoarthritis. Reviewed, dictated and finalized at location B. CH LANGUAGE PATHOLOGIST ASSISTANT
--- NOTE | ~2024-11-06 | XR_ITS ---
HISTORY: M25.551 - Pain in right hip COMPARISON: 11/17/2022 TECHNIQUE: 2 views of the bilateral hips was along with an AP view of the pelvis FINDINGS: Right hip prosthetic with cerclage wires and plates/screw fixation along the lateral margin. Redemonstration of 2 mm lucency surrounding the femoral component both proximally and medially. This appearance is unchanged from 11/17/2022. No acute periprosthetic fracture is identified. Superior lateral sclerosis of the left femoral acetabular joint space is present consistent with oste oarthritis. Diffusely decreased mineralization, age-appropriate. 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 Reviewed, dictated and finalized at location [facility] [employer] IMPRESSION: Stable appearance of the right hip prosthetic, with trace lucency surrounding t he femoral component, similar in appearance to previous examination dated 023. 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
== END 2024-11-06 14:26 | disposition home or self-care (01) ==
LOC: GOSHIMG 14:27
PROVIDERS: PCP Nurse Practitioner; Visit Provider Nurse Practitioner
DX: S32.010A Wedge compression fracture of first lumbar vertebra, initial encounter for closed fracture (principal); X58.XXXA Exposure to other specified factors, initial encounter; M25.78 Osteophyte, vertebrae; M43.16 Spondylolisthesis, lumbar region; M16.0 Bilateral primary osteoarthritis of hip; Z96.641 Presence of right artificial hip joint; M25.462 Effusion, left knee
CPT/HCPCS: 72080; 73521; 73560

== ENCOUNTER 2024-11-23 10:50 | Outpatient (CLI) | payer MEDICARE, SELFPAY ==
--- NOTE | ~2024-11-23 | MR_ITS ---
EXAMINATION: MR lumbar spine wo con DATE: 11/23/2024 11:43 INDICATION: Acute low back pain. Trauma. TECHNIQUE: Magnetic resonance imaging (MRI) of the lumbar spine was performed without intravenous con trast. Sequences included sagittal T2-weighted FSE, sagittal T2-weighted FS FSE, sagittal T1-weighted FSE, and axial T2-weighted FSE. COMPARISON: Lumbar spine MRI 11/25/2017, thoracic spine radiographs 05/11/2021 FINDINGS: There is 17 degrees levoscoliosis of lumbar spine. S1 is a transitional segment. There are chronic compression fractures of T11 and L1. There is 2 mm retrolisthesis of L1 on L2, L2 on L3, and L3 on L4. There is moderately decreased disc height at L1-L2, severely decreased disc at L2-L3, moder ately decreased disc at L3-L4, severely decreased disc height at L4-L5. There is ligamentum flavum hy pertrophy at the disc levels in lumbar spine. The distal spinal cord signal intensity is normal. The conus medullaris is at L1-L2. The following disc levels are specifically discussed: L1-L2: The disc is bulging. There is severe right and moderate left facet joint osteoarthritis. There is mild bilateral neural foraminal stenosis. There is mild central canal stenosis. L2-L3: The disc is bulging and has an annular fissure. There is severe right and mild left facet join t osteoarthritis. There is moderate right and mild left neural foraminal stenosis. There is mild cent ral canal stenosis. L3-L4: The disc is bulging. There is moderate bilateral facet joint osteoarthritis. There is moderate bilateral neural foraminal stenosis. There is moderate central canal stenosis. L4-L5: The disc is bulging and has an annular fissure. There is severe bilateral facet joint osteoart hritis. There is moderate bilateral neural foraminal stenosis. There is moderate central canal stenos is. L5-S1: The disc is bulging and has an annular fissure. There is severe bilateral facet joint osteoart hritis. There is moderate bilateral neural foraminal stenosis. There is moderate central canal stenos is. IMPRESSION: 1. Severe lumbar spondylosis, worsened from 12/02/2017. 2. Lumbar levoscoliosis. Reviewed, dictated and finalized at location A. ATTENDANT
--- OUTSIDE RECORDS SUMMARY | 2024-11-23 10:54 | XMS_ITS | Data Portability ---
Author Organization [place] [facility], Main Office Address [address] [place] [address] Care Team Providers Care Clinical Ob Name Role Phone SARAH DING Primary Care Provider [phone] SARAH DING Referring Provider [phone] Assessment Encounter Date Assessment Date Assessment LastModified by Organization Details LastModified Time 04/03/2023 04/03/2023 HPI: 87-year-old male who came in today for a cortisone injection into the left knee. He a shot 3 months ago at [facility]. He was being evaluated for his hip revision after a fall. Fortunately he did have any complications of his hip revision. He had quite a bit of soreness in the knee and the give him an injection 3 months ago. It helped for about month. Takes Tylenol and adxs-dat-zrvmrtu naproxen on a regular basis and this does help his symptoms as well. He does not wish to discuss surgical options on his knee. He does have early dementia and would be at high risk issues because of that and as well as his advanced age. He is content to continue with injections. Physical exam: 87-year-old male very alert pleasant. He walks with a walker. He has mild effusion in the left knee. No redness or warmth. Range motion is from 7-125 . There is no increased swelling in either lower extremity. Mild tenderness over medial joint To palpation. ChloraPrep was used on skin 20 mg Kenalog and 3 cc of 0.5% ropivacaine was injected into the left knee. Risk of infection discussed. Impression: 87-year-old male who has advanced medial compartment osteoarthritis left knee. He wished to have injections every 3 months. We will see him back in 3 months repeat injection. 20 minutes was spent in treatment patient more than half of this in hyeq-pp-fumy conversation [email or web address] Not available 04/03/2023 15:31:27 07/03/2023 07/03/2023 HPI: Patient returns. He is here for cortisone injection left knee. Last shot was 3 months ago. He gets about 2 months of good relief. He has severe medial compartment osteoarthritis in the left knee. He wished to have another injection today. Physical exam: 88-year-old male he is alert. He walks with a walker for stability. He has mild effusion left knee. Range of motion is from 3-130 degrees. No increased swelling in either lower extremity. ChloraPrep was used on skin 20 mg Kenalog and 3 cc of 0.5% ropivacaine was injected into the left knee. Risk infection discussed. Impression: 88-year-old male who has severe medial compartment osteoarthritis left knee. Shots continue give him some benefit. See him in 3 months. Not available 07/03/2023 14:25:49 10/02/2023 10/02/2023 HPI: Patient returns. He is here for cortisone injection left knee. Last shot was 3 months ago. He is getting only about 2 or 3 weeks of improvement of his symptoms after the shot he states. He has advanced medial compartment osteoarthritis left knee. He is 88 a nonsurgical candidate. He would like to have another injection today. Physical exam: 88-year-old male he walks with a walker. He has mild effusion left knee. Her range of motion is from 5-125 degrees. He has trace edema in both lower extremities. Mild tenderness over the medial joint line. After ChloraPrep was used on skin 20 mg Kenalog and 3 cc of 0.5% ropivacaine was injected into the left knee. Risk of infection discussed. Impression: 88-year-old male who has severe medial compartment osteoarthritis left knee. Shots continue to give him some benefit he wishes to continue with foot. We will see him in 3 months. Not available 10/02/2023 14:17:54 01/01/2024 01/01/2024 HPI: Patient returns. He is here for cortisone injection in the left knee. Last shot was 3 months ago. Gets good relief. He has severe medial compartment osteoarthritis. He wished to have another injection today. Physical exam: 88-year-old male alert pleasant. He walks with a walker. He has mild effusion left knee. Mild varus alignment. Range of motion is from 7-125 degrees. No increased swelling in either lower extremity. After alcohol prep 20 mg Kenalog and 3 cc of 0.5% ropivacaine was injected into the left knee. Impression: 88-year-old male who has severe medial compartment osteoarthritis in the left knee. Shots continue to give him good relief. We will see him in 3 months. Not available 01/01/2024 16:45:19 Plan of Treatment Reminders Order Date Submit Date Provider Last Modified By Organization Details Last Modified Time Details Appointments None recorded. Lab None recorded. Referral None recorded. Procedures injection/a spiration joint/bursa (PROC) - in office procedure, administere d by provider 2022 023 [email or web address] In-Office Order, Internal Use Only DO Not Attach Compendium DO Not Attach Compendium, Do Not Delete/merge, [id number] 15:23:39 injection/a spiration joint/bursa (PROC) - in office procedure, administere d by provider 2022 023 [email or web address] In-Office Order, Internal Use Only DO Not Attach Compendium DO Not Attach Compendium, Do Not Delete/merge, [id number] 3 14:12:13 injection/a spiration joint/bursa (PROC) - in office procedure, administere d by provider 2022 023 [email or web address] In-Office Order, Internal Use Only DO Not Attach Compendium DO Not Attach Compendium, Do Not Delete/merge, [id number] 3 14:06:16 injection/a spiration joint/bursa (PROC) - in office procedure, administere d by provider 2023 024 [email or web address] In-Office Order, Internal Use Only DO Not Attach Compendium DO Not Attach Compendium, Do Not Delete/merge, [id number] 4 17:08:44 Surgeries None recorded. Imaging XR, knee 2022 023 [email or web address] [facility] [place], [address], [place], [address], 3 16:34:37 Medication Orders Kenalog 10 mg/mL suspension for injection 2022 023 [email or web address] [address] [id number], [address], [place], [place], [id number], 3 16:34:37 ropivacaine (PF) 5 mg/mL (0.5 %) injection solution [address] [facility]90675, [address], [place], [place], [id number], 3 14:04:44 Kenalog 10 mg/mL suspension for injection [address] [facility] #[id number], [address], [place], [place], [id number], 3 19:03:03 ropivacaine (PF) 5 mg/mL (0.5 %) injection solution [address] [facility] #77046, [address], [place], [place], [id number], 3 14:04:44 Kenalog 10 mg/mL suspension for injection 2022 023 [email or web address] [address] [facility], [address], [place], [place], [id number], 3 18:47:21 ropivacaine (PF) 5 mg/mL (0.5 %) injection solution 2022 023 [place] [address] [facility], [address], [place], [place], [id number], 3 18:47:21 Kenalog 10 mg/mL suspension for injection [address] [facility] #45450, [address], [place], [id number], 4 17:08:44 bupivacaine (PF) 0.25 % (2.5 mg/mL) injection solution 2023 024 [email or web address] [facility] #60786, [address], [place], [id number], 4 17:08:44 Patient TargetsNo targets recorded. Patient InstructionsNo instructions recorded. Reason for Referral None Reported. Results Created Date Observation Date Name Description Value Unit Range Abnormal Flag Note LastModifiedBy Organization Detail LastModifiedTime 04/03/20 23 XR, knee No observ ation record ed. [email or web address] [facility] [place] [address], [place], [address], 04/03/2023 15:28:30 Result Notes None recorded. Problems Name Problem SNOMED Code Status Onset Date Resolution Date Notes Provider Name and Address Organization Details Recorded Time Acquired trigger finger 3294813 Active Not Available [facility] 3 13:13:10 Low back pain 572254546 Active Not Available [facility] 3 13:13:10 Enthesopat hy of hip region 94810778 Active Not Available [facility] 3 13:13:10 Inflammato ry disorder of extremity 107839456 Active Not Available [facility] 3 13:13:10 Osteoarthr itis 868593819 Active Not Available [facility] 3 13:13:10 Hip pain 62967162 Active Not Available [facility] 3 13:13:10 Pain of right knee joint 6464516189022 00 Active 2022 KENDRA Payne, [employer] [facility] [place] [facility] 3 14:32:59 Osteoarthr itis of left knee joint 2305215733156 09 Active 2022 KENDRA Payne, [employer] [facility] [place] [facility] 3 14:11:10 Problem Notes None recorded. Procedures Surgical History Date Name Laterality Status Provider Name and Address Organization Details Recorded Time procedure on wrist completed [facility]ENDRA [facility] [employer] [facility] 04/03/2023 14:41:30 Hip surgery completed [facility]ENDRA [facility] [employer] [facility] 04/03/2023 14:41:36 Knee Surgery completed [facility]ENDRA [facility] [employer] [facility] 04/03/2023 14:41:43 Imaging Results Imaging Date Name Status LastModified by Organiz ation Details LastModified Time 04/03/2023 XR, knee completed [email or web address] [facility] [place] [address], [place], [address], 04/03/2023 15:28:30 Procedure Notes None recorded. Medical Equipment None Reported. Allergies No known drug allergies Medications Name Sig Start Date Stop Date Status Note LastModified by Organization Details LastModified Time cyclobenzap rine 10 mg tablet 04/03 completed Not Available Not Available Not Available atorvastati n 40 mg tablet TAKE 1 TABLET BY MOUTH EVERY DAY AT BEDTIME active Not Available Not Available No t Available metformin 500 mg tablet TAKE 1 TABLET BY MOUTH DAILY active Not Available Not Available No t Available neomycin-po lymyxin-hyd rocort 3.5 mg/mL-10,00 0 unit/mL-1 % ear solution 04/03 completed Not Available Not Available Not Available cefuroxime axetil 250 mg tablet 04/03 completed Not Available Not Available Not Available pilocarpine 1 % eye drops 04/03 completed Not Available Not Available Not Available azithromyci n 250 mg tablet 04/03 completed Not Available Not Available Not Available benzonatate 200 mg capsule TK 1 C PO TID PRF COUGH 04/03 completed Not Available Not Available Not Available metoprolol succinate ER 50 mg tablet,exte nded release 24 hr TK 1 T PO QD 04/03 completed Not Available Not Available Not Available levetiracet am 500 mg tablet 04/03 completed Not Available Not Available Not Available hydrocodone 5 mg-acetamin ophen 325 mg tablet TAKE 1 TABLET BY MOUTH EVERY 6 HOURS NEEDED FOR PAIN active Not Available Not Available No t Available meloxicam 15 mg tablet TAKE 1 TABLET BY MOUTH DAILY active Not Available Not Available No t Available ondansetron HCl 4 mg tablet 04/03 completed Not Available Not Available Not Available Anucort-HC 25 mg suppository UNWRAP AND INSERT ONE SUPPOSITO RY RECTALLY TWICE DAILY 04/03 completed Not Available Not Available Not Available ciprofloxac in 250 mg tablet 04/03 completed Not Available Not Available Not Available acyclovir 400 mg tablet 04/03 completed Not Available Not Available Not Available ciprofloxac in 500 mg tablet TAKE 1 TABLET BY MOUTH EVERY 12 HOURS active Not Available Not Available No t Available sulfamethox azole 800 mg-trimetho prim 160 mg tablet 04/03 completed Not Available Not Available Not Available peg-electro lyte solution 420 gram oral solution 04/03 completed Not Available Not Available Not Available omeprazole 40 mg capsule,del ayed release TAKE 1 CAPSULE BY MOUTH DAILY active Not Available Not Available No t Available tramadol 50 mg tablet active Not Available Not Available No t Available triamcinolo ne acetonide 0.1 % topical cream 04/03 completed Not Available Not Available Not Available simvastatin 40 mg tablet TAKE 1 TABLET BY MOUTH DAILY 04/03 completed Not Available Not Available Not Available acyclovir 800 mg tablet 04/03 completed Not Available Not Available Not Available amoxicillin 875 mg tablet TAKE 1 TABLET BY MOUTH TWICE DAILY FOR 7 DAYS 04/03 completed Not Available Not Available Not Available clarithromy justyn ER 500 mg tablet,exte nded release 24 hr TK 2 TS PO ONCE A DAY 04/03 completed Not Available Not Available Not Available tamsulosin 0.4 mg capsule TAKE 1 CAPSULE BY MOUTH EVERY DAY active Not Available Not Available No t Available hydrocortis one-acetic acid 1 %-2 % ear drops 04/03 completed Not Available Not Available Not Available Kenalog 10 mg/mL suspension for injection in office 2023 active NDC: 0003- 0494- 20 Not Available Not Available Not Available meclizine 25 mg tablet TK 1 T PO TID 04/03 completed Not Available Not Available Not Available phenazopyri dine 100 mg tablet TK 1 T PO BID PRN 04/03 completed Not Available Not Available Not Available baclofen 10 mg tablet 04/03 completed Not Available Not Available Not Available prednisone 50 mg tablet 04/03 completed Not Available Not Available Not Available oxybutynin chloride ER 5 mg tablet,exte nded release 24 hr 04/03 completed Not Available Not Available Not Available gabapentin 300 mg capsule TAKE 1 CAPSULE BY MOUTH DAILY active Not Available Not Available No t Available sertraline 25 mg tablet TK 1 T PO QHS 04/03 completed Not Available Not Available Not Available omeprazole 20 mg capsule,del ayed release 04/03 completed Not Available Not Available Not Available diclofenac sodium 75 mg tablet,yonatan yed release 04/03 completed Not Available Not Available Not Available hydrochloro thiazide 25 mg tablet TAKE 1 TABLET BY MOUTH DAILY active Not Available Not Available No t Available mupirocin 2 % topical ointment 04/03 completed Not Available Not Available Not Available gabapentin 100 mg capsule 04/03 completed Not Available Not Available Not Available metoprolol succinate ER 25 mg tablet,exte nded release 24 hr TK 1 T PO D 04/03 completed Not Available Not Available Not Available levofloxaci n 750 mg tablet 04/03 completed Not Available Not Available Not Available methylpredn isolone 4 mg tablets in a dose pack 04/03 completed Not Available Not Available Not Available albuterol sulfate HFA 90 mcg/actuati on aerosol inhaler INHALE 1 PUFF BY MOUTH EVERY 4 HOURS NEEDED FOR SHORTNESS OF BREATH OR WHEEZING active Not Available Not Available No t Available ketoconazol e 2 % topical cream 04/03 completed Not Available Not Available Not Available fluticasone propionate 50 mcg/actuati on nasal spray,suspe nsion 04/03 completed Not Available Not Available Not Available sertraline 50 mg tablet TAKE 1 TABLET BY MOUTH DAILY NEEDED FOR ANXIETY active Not Available Not Available No t Available finasteride 5 mg tablet 04/03 completed Not Available Not Available Not Available naproxen 500 mg tablet TAKE 1 TABLET BY MOUTH TWICE DAILY active Not Available Not Available No t Available amoxicillin 875 mg-potassiu m clavulanate 125 mg tablet TAKE 1 TABLET BY MOUTH EVERY 12 HOURS 04/03 completed Not Available Not Available Not Available Vigamox 0.5 % eye drops 04/03 completed Not Available Not Available Not Available bupivacaine (PF) 0.25 % (2.5 mg/mL) injection solution in office 2023 active Not Available Not Available Not Avai lable Vytorin 10 mg-40 mg tablet 04/03 completed Not Available Not Available Not Available magnesium active Not Available Not Lyudmila ilable Not Available meclizine active Not Available Not Lyudmila ilable Not Available Symbicort 160 mcg-4.5 mcg/actuati on HFA aerosol inhaler INL 2 PFS PO BID 04/03 completed Not Available Not Available Not Available Durezol 0.05 % eye drops 04/03 completed Not Available Not Available Not Available Livalo 2 mg tablet 04/03 completed Not Available Not Available Not Available ropivacaine (PF) 5 mg/mL (0.5 %) injection solution in office 2022 active Not Available Not Available Not Avai lable Myrbetriq 50 mg tablet,exte nded release 04/03 completed Not Available Not Available Not Available Myrbetriq active Not Available Not Lyudmila ilable Not Available Linzess 290 mcg capsule TK ONE C PO ONCE D 04/03 completed Not Available Not Available Not Available Linzess active Not Available Not Avail able Not Available Ilevro 0.3 % eye drops,suspe nsion INSTILL 1 DROP INTO SURGICAL EYE QD STARTING 2 DAYS BEFORE SURGERY 04/03 completed Not Available Not Available Not Available Virtussin AC 10 mg-100 mg/5 mL oral liquid TK 5 TO 10 MLS PO Q 4 TO 6 H PRN 04/03 completed Not Available Not Available Not Available Vitals Date Recorded Body height Body mass index (BMI) Body weight Provider Name and Address Organization Details Last Updated DateTime 04/03/2023 152.4 cm 37.5 kg/m2 95814.74 g KENDRA Payne [employer] [facility] [employer] 04/03/2023 14:57:22 Date Recorded Body height Provider Name an d Address Organization Details Last Updated DateTime 07/03/2023 152.4 cm KENDRA Payne [facility] [place] [facility] 07/03/2023 14:10:43 Date Recorded Body height Provider Name an d Address Organization Details Last Updated DateTime 10/02/2023 152.4 cm KENDRA Payne [facility] 10/02/2023 14:04:22 Date Recorded Body height Provider Name an d Address Organization Details Last Updated DateTime 01/01/2024 152.4 cm Miranda Martinez [facility] 01/01/2024 14:11:55 Social History Question Answer Notes LastModified by Organizat ion Details LastModified Time Tobacco Smoking Status Never Smoker KENDRA Payne null, [facility] 04/03/2023 14:41:21 What Is Your Level Of Alcohol Consumption? None [email or web address] Information not available 04/03/2023 Sex: Unknown Functional Status None recorded. Mental Status None recorded. Family History Relationship Description Onset Age of this Age Resolved Age Notes LastModified by Organization Details LastModified Time Sister Hypertensive disorder [email or web address] Not available 2022 14:40:43 Sister Diabetes mellitus [email or web address] Not available 2022 14:41:09 Brother Diabetes mellitus [email or web address] Not available 2022 14:41:08 Mother Diabetes mellitus [email or web address] Not available 2022 14:41:09 Medical History Condition Response ARTHRITIS Y DIABETES, TYPE Y HYPERTENSION Y Past Encounters Encounter ID Performer Location Encounter Start Date Encounter Closed Date Diagnosis/Indication Diagnosis SNOMED-CT Code Diagnosis ICD10 Code Diagnosis Note [id number] RICCARDO Ceron [facility] [place] [address] [place] [address] 04/03/2023 14:04:49 04/03/2023 15:37:19 Pain of right knee joint 4767343013 72577 M25.050 [id number] RICCARDO Ceron [facility] [place] [address] [place] [address] 07/03/2023 14:01:05 07/03/2023 14:27:56 Osteoarthritis of left knee joint 4189740400 94378 M17.12 [id number] RICCARDO Ceron [facility] [place] [address] [place] [address] 10/02/2023 14:01:36 10/02/2023 14:43:29 Osteoarthritis of left knee joint 1395947684 84862 M17.12 [id number] RICCARDO Ceron [facility] [place] [address] [facility] [address] [place] [address] 01/01/2024 14:05:45 01/01/2024 16:48:48 Osteoarthritis of left knee joint 8512742186 36432 M17.12 Health Concerns Section Related Observation LastModified by Organization Detai ls LastModified Time None Recorded Concern Status LastModified by Organization Details LastModified Time None Recorded Advance Directives Directive None Recorded Payers Encounter Date Sequence Insurance Name Policy Number Policy Mas Covered Member ID Mas Member ID Guarantor Name 04/03/2023 1 [place] Romie A Antony Sr [id number] Romie A Antony 04/03/2023 2 [place] [id number] Romie A Antony Sr [id number] Romie A Antony 07/03/2023 1 [place] Romie A Antony Sr [id number] Romie A Antony 07/03/2023 2 [place] [id number] Romie A Antony Sr [id number] Romie A Antony 10/02/2023 1 [place] Romie A Antony Sr [id number] Romie A Antony 10/02/2023 2 [place] [id number] Romie A Antony Sr [id number] Romie A Antony 01/01/2024 1 [place] Romie A Antony Sr [id number] Romie A Antony 01/01/2024 2 [place] [id number] Romie A Antony Sr [id number] Romie A Antony
--- OUTSIDE RECORDS SUMMARY | 2024-11-23 10:54 | XMS_ITS | Referral Summary ---
Author Organization [facility] Address [address] [place] [address] Care Team Providers Care Lay Out And Detail Drafter Name Role Phone Julianna Smith MD Primary Care Provider [phone] Encounters Date Type Department Care Team Description 11/21/2024 4:15 PM CEMENT MASON APPRENTICE Office Visit [facility] Cardiology [address] [place] [address] [place] [address] Adán Lewis MD Chest pain, unspecified type (Primary Dx); Coronary artery disease involving [place] coronary artery of [place] heart without angina pectoris from Last 3 Months Allergies Active Allergy Reactions Criticality Noted Date Comments Adhesive Unknown Low Amoxicillin Rash Medium Ciprocinonide Hives Medium 09/29/2009 Iodinated Contrast Media Rash Medium 06/28/2007 Tetanus Toxoid Swelling Medium Medications vitamin E (AQUASOL E) 400 unit capsule daily. 8 Active aspirin 81 mg tablet daily. 7 Active piqzduen-ylu-BZ -lycopen-lutein 0.4-300-250 mg-mcg-mcg tabletIndicatio ns:Vitamin Deficiency Prevention daily. Active omega 3-zlu-nxl-fish oil 100-160-1,000 mg capsule daily. Active tamsulosin (FLOMAX) 0.4 mg extended release capsule daily. 9 Active gabapentin (NEURONTIN) 300 mg capsule 1 TABLET DAILY 3 8 Active hydroCHLOROthia zide (HYDRODIURIL) 25 mg tablet TK 1 T PO D. EAT POTASSIUM RICH FOODS. 1 8 Active LINZESS 290 mcg capsule as needed 4 8 Active magnesium oxide (MAG-OX) 415 mg (250 mg elemental) tablet daily. 2 Active sertraline (ZOLOFT) 50 mg tablet daily 1 8 Active cyanocobalamin, vitamin B-12, 1,000 mcg tablet extended release daily. Active pyridoxine (VITAMIN B-6) 100 mg tablet TAKE 1TABLETS DAILY. Active ascorbic acid (VITAMIN C) 500 mg tablet,chewable daily. Acti ve cholecalciferol (VITAMIN D-3) 1,000 unit tablet daily. 2 Active MYRBETRIQ 50 mg tablet extended release 24 hr 3 9 Active omeprazole (PriLOSEC) 40 mg capsule daily 0 Active docusate sodium (COLACE) 100 mg capsuleIndicati ons:constipatio n Take 1 capsule (100 mg total) by mouth daily Active C,E,zinc,copper 57-dsiat1e-xgl (Ocuvite Adult 50 Plus) 250-5-1 mg capsule Take by mouth Active meclizine (ANTIVERT) 12.5 mg tablet TAKE 1 TABLET BY MOUTH FOUR TIMES DAILY NEEDED FOR DIZZINESS 2 Active metFORMIN (GLUCOPHAGE) 500 mg tablet Take 1 tablet (500 mg total) by mouth daily 2 Active naproxen (NAPROSYN) 500 mg tablet Take 1 tablet (500 mg total) by mouth 2 (two) times a day 3 Active atorvastatin (LIPITOR) 40 mg tablet Take 1 tablet (40 mg total) by mouth nightly at bedtime 5 Active simvastatin (ZOCOR) 40 mg tablet daily 1 8 11/21/19 25 Discontinu ed(Therapy completed) Active Problems Problem Noted Date Diagnosed Date Syncope and collapse 06/08/2021 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 Essential hypertension 05/10/2018 Hyperlipidemia 05/10/2018 Immunizations Name Administration Dates Next Due Influenza, Quadrivalent, Rec ombinant, Egg Free, Preservative Free, Intramuscular 07/25/2019 Influenza, Trivalent, High D ose, Split, Preservative Free, Intramuscular 07/11/2018 Social History Tobacco Use Types Packs/Day Years Used Date Smoking Tobacco: Former Smokeless Tobacco: Never Sex and Gender Information Value Date Recorded Sex Assigned at Not on file Legal Sex Male 9:16 PM CEMENT MASON APPRENTICE Gender Identity Not on file Sexual Orientation Not on file Last Filed Vital Signs Vital Sign Reading Time Taken Comments Blood Pressure 123/72 11/21/2024 3:59 PM CEMENT MASON APPRENTICE Pulse 80 11/21/2024 3:59 PM CEMENT MASON APPRENTICE Temperature 36.2 C (97.1 F) 05/25/2020 9:30 AM CDT obtained from pt Respiratory Rate - - Oxygen Saturation 95% 11/21/2024 3:5 9 PM CEMENT MASON APPRENTICE Inhaled Oxygen Concentration - - Weight 81.6 kg (180 lb) 11/21/2024 3:59 PM CEMENT MASON APPRENTICE Height 170.2 cm (5' 7 ) 11/21/2024 3:59 PM CEMENT MASON APPRENTICE Body Mass Index 28.19 11/21/2024 3:59 PM CEMENT MASON APPRENTICE Plan of Treatment Not on file Procedures Procedure Name Priority Date/Time Associated Diagnosis Comments ECG 12-LEAD Routine 11/21/2024 4:46 PM CEMENT MASON APPRENTICE Chest pain, unspecified type from Last 3 Months Results * ECG 12 lead (11/21/2024 4:46 PM CEMENT MASON APPRENTICE) us Adán Lewis MD ECG ORDERABLES Edited Result - Final from Last 3 Months Insurance MEDICARE [facility] MEDICARE BLUE CROSS MEDICARE SUPPLEMENT [facility] Care Teams Lay Out And Detail Drafter Relationship Specialty Start Date End Date Julianna Smith MD [address] [place] [address] PCP - General 12/19/16
--- OUTSIDE RECORDS SUMMARY | 2024-11-23 10:54 | XMS_ITS | Clinical Summary ---
Author Organization [facility] Address [address] [place] [phone] Phone Care Team Providers Care Medical Administrator Name Role Phone Benja Smith MD Primary Care Provider Social History Tobacco Use Types Packs/Day Years Used Date Smoking Tobacco: Never Assessed Sex and Gender Information Value Date Recorded Sex Assigned at Not on file Legal Sex Male 10:17 AM LIGHT INDUSTRIAL SUPERVISOR Gender Identity Not on file Sexual Orientation Not on file Plan of Treatment Health Maintenance Due Date Last Done Comments DTAP/TDAP/TD VACCINES (1 - Tdap) 1955 PNEUMOCOCCAL VACCINE 65+ YEARS (1 of 1 - PCV) 06/01/19 86 ZOSTER VACCINE (1 of 2) 1986 RSV VACCINE (60+ or ) (1 - 1-dose 75+ series) 2011 INFLUENZA VACCINE (#1) 2024 Insurance MEDICARE [facility] ONLY BCBS SUPP Care Teams Medical Administrator Relationship Specialty Start Date End Date Benja Smith MD [address] [address] PCP - General Family Practice 12/20/17
--- OUTSIDE RECORDS SUMMARY | 2024-11-23 10:54 | XMS_ITS | Clinical Summary ---
Author Organization [facility] Address [address] [place] [address] Care Team Providers Care Supervisor Varnish Name Role Phone Julianna Smith MD Primary Care Provider [phone] Allergies Active Allergy Reactions Criticality Noted Date Comments Adhesive Unknown Low Amoxicillin Rash Medium Ciprocinonide Hives Medium 09/29/2009 Iodinated Contrast Media Rash Medium 06/28/2007 Tetanus Toxoid Swelling Medium Medications vitamin E (AQUASOL E) 400 unit capsule daily. 8 Active aspirin 81 mg tablet daily. 7 Active gkxgbwqm-tlv-AM -lycopen-lutein 0.4-300-250 mg-mcg-mcg tabletIndicatio ns:Vitamin Deficiency Prevention daily. Active omega 7-jaf-jlx-fish oil 100-160-1,000 mg capsule daily. Active tamsulosin [...] mg total) by mouth daily Active C,E,zinc,copper 25-ftzoq1a-syv (Ocuvite Adult 50 Plus) 250-5-1 mg capsule [...] CABG 05/10/2018 Essential hypertension 05/10/2018 Hyperlipidemia 05/10/2018 Encounters Date Type Department Care Team Description 11/21/2024 4:15 PM PARAKEET RAISER Office Visit [facility] Cardiology [address] [facility] [address]th [place] [address] [place] [address] Adán Lewis MD Chest pain, unspecified type (Primary Dx); Coronary artery disease involving [place] coronary artery of [place] heart without angina pectoris from Last 3 Months Immunizations Name Administration Dates Next Due Influenza, Quadrivalent, Rec ombinant, Egg Free, Preservative Free, Intramuscular 07/25/2019 Influenza, Trivalent, High D ose, Split, Preservative Free, Intramuscular 07/11/2018 Surgical History Surgery Date Site/Laterality Comments OR CORONARY ARTERY BYPASS 1 CORONARY VENOUS GRAFT CABG - x 3 (Added by TW Conv) OR ARTHRP ACETBLR/PROX FEM P ROSTC AGRFT/ALGRFT Total Hip Replacement - 11/22 (Added by TW Conv) OR RENETTA ELECTROSURG RESCJ PROSTATE BLEED COMPLETE Transurethral Resection Of Prostate (TURP) - (Added by TW Conv) OR CYSTOURETHROSCOPY WITH BIOPSY Cystoscopy With Biopsy - bladder bx 01/23 (-); bladder bx @ OSH 02/19 (-) per [facility] review (Added by TW Conv) CORONARY ARTERY BYPASS GRAFT CABG - Coronary Artery Bypass Graft (CABG) (Added by TW Conv) KNEE ARTHROSCOPY Arthroscopy Knee - (Added by TW Conv) HEART SURGERY Heart Surgery - (Added by TW Conv) HIP SURGERY Hip Surgery - (Added by TW Conv) KNEE ARTHROPLASTY Knee Arthroplasty - (Added by TW Conv) TOTAL HIP ARTHROPLASTY Hip Replacement - (Added by TW Conv) OR NJX AA&/STRD TFRML EPI LUMBAR/SACRAL 1 LEVEL Corticosteroid Inj Transforaminal Approach Lumbar W/ Fluoroscopic Guidance - (Added by TW Conv) OR NJX AA&/STRD TFRML EPI LUMBAR/SACRAL 1 LEVEL Corticosteroid Inj Transforaminal Approach Lumbar W/ Fluoroscopic Guidance - (Added by TW Conv) OR NJX AA&/STRD TFRML EPI LUMBAR/SACRAL 1 LEVEL Corticosteroid Inj Transforaminal Approach Lumbar W/ Fluoroscopic Guidance - (Added by TW Conv) Medical History Medical History Date Comments Personal history of other di seases of male genital organs History of prostatitis - (Ad ded by TW Conv) Male erectile disorder (CODE) Er ectile dysfunction of non-organic origin - (Added by TW Conv) Urinary incontinence Urinary inc ontinence - (Added by TW Conv) Personal history of other di seases of the respiratory system History of asthma - (Added b y TW Conv) Personal history of other di seases of the digestive system History of constipation - (A dded by TW Conv) 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 - (Added by TW Conv) Family History Medical History Relation Name Comments Heart attack Brother Family history of myocardial infarction - (Added by TW Conv) Heart attack Father Family history of myocardial infarction - (Added by TW Conv) Coronary artery disease Sister Fami ly history of coronary artery disease - (Added by TW Conv) Relation Name Status Comments Brother Father Sister Social History Tobacco Use Types Packs/Day Years Used Date Smoking Tobacco: Former Smokeless Tobacco: Never Sex and Gender Information Value Date Recorded Sex Assigned at Not on file Legal Sex Male 9:16 PM PARAKEET RAISER Gender Identity Not on file Sexual Orientation Not on file Obstetrics History Last Filed Vital Signs Vital Sign Reading Time Taken Comments Blood Pressure 123/72 11/21/2024 3:59 PM PARAKEET RAISER Pulse 80 11/21/2024 3:59 PM PARAKEET RAISER Temperature 36.2 C (97.1 F) 05/25/2020 9:30 AM CDT obtained from pt Respiratory Rate - - Oxygen Saturation 95% 11/21/2024 3:5 9 PM PARAKEET RAISER Inhaled Oxygen Concentration - - Weight 81.6 kg (180 lb) 11/21/2024 3:59 PM PARAKEET RAISER Height 170.2 cm (5' 7 ) 11/21/2024 3:59 PM PARAKEET RAISER Body Mass Index 28.19 11/21/2024 3:59 PM PARAKEET RAISER Plan of Treatment Health Maintenance Due Date Last Done Comments Depression Screening 1936 Fall Risk Assessment 1936 DTaP/Tdap/Td Vaccine (1 - Tdap) 1947 Hepatitis B Screening 1954 Zoster Vaccine (1 of 2) 1986 Pneumococcal vaccine 65+ (1 of 1 - PCV) 2001 Well Visit 65+ 2001 Influenza Vaccine (#1) 2024 07/25/2019, 2017 Procedures Procedure Name Priority Date/Time Associated Diagnosis Comments ECG 12-LEAD Routine 11/21/2024 4:46 PM PARAKEET RAISER Chest pain, unspecified type from Last 3 Months Results * ECG 12 lead (11/21/2024 4:46 PM PARAKEET RAISER) Adán Lewis MD ECG ORDERABLES Edited Result - Final from Last 3 Months Insurance MEDICARE [facility] MEDICARE [place] [id number] [facility] Care Teams Supervisor Varnish Relationship Specialty Start Date End Date Julianna Smith MD [address] [place], [place] [id number] PCP - General 12/19/16
--- OUTSIDE RECORDS SUMMARY | 2024-11-23 10:54 | XMS_ITS ---
Author Organization [facility] Address [address] [place], [place] [id number] Care Team Providers Care Loss Control Technician Name Role Phone ESTEFANI JUDITH Unavailable [phone] Vernace, Joanie Unavailable Unavailable REASON FOR VISIT *General care Encounters Encounter Location Date Provider Diagnosis [facility] [address] [place], [place] [id number] 07/11/2024 UJDITH MCDONALD Plan Of Treatment Next Appt Details Provider Name:JUDITH AGRAWAL, 11/28/2024 01:20:00 PM, [address], [place], [place], [id number], Progress Notes * MILAGROS MARTÍNEZ SRDOB: [birth year] (89 yo M)Acc No.[id number]:07/11/2024 Patient: MILAGROS PELAEZ SR Provider: Whit Mcdonald DPM :1935 A ge:89 Y S ex:Male Date:07/11/2024 Address:[address] [place], [place] [id number] Subjective: * Chief Complaints: * 1 . *General care. * Medical History: Objective: * Vitals: Assessment: Plan: * Treatment: * Billing Information: * Visit Code: * Procedure Codes: * Electronic signature of JUDITH MCDONALD DPM on 11/23/2024 at 10:54 AM MARKETING PROPOSAL SPECIALIST Sign off status: Pending * Provider: Whit Mcdonald DPM Date: 0 07/11/2024 Generated for Donya zhang/Brandyn/Giorgi on: 0 11/23/2024 10:54 AM MARKETING PROPOSAL SPECIALIST
--- OUTSIDE RECORDS SUMMARY | 2024-11-23 10:54 | XMS_ITS | Continuity of Care Document ---
Author Organization [facility] Address [address] [place] [address] Phone Care Team Providers Care Cq Developer Name Role Phone [facility] Unavailable Unavailable Advance Directives Directive Yes / No Effective Date File Name No Information Encounters Encounter Description Practice Location Reason(s) For Visit Diagnoses Date Provider Providers Copied on Encounter [facility], [address], [place], [place], [id number], [place] tel:[phone] [facility] No Information [address] [facility], [address], [place], [place], [id number] , [place]. tel:[phone] Family History Family Member Type Diagnosis Age At Onset No Information Payers Payer name Insurance type Covered democrat ID Authoriza tion(s) No Information Social History Type Description Quantity Date Captured Comments Sex Male Smoking Status No Information Chief Complaint And Reason For Visit No Information Reason For Referral Reason For Referral No Information History Of Present Illness Encounter Date Complaint History Of Prese nt Illness No Information Functional Status Date Functional Assessmen t No Information Instructions Date Instruction Additional Infor mation No Information Assessments Type Assessment Date No Information Patient Care Teams Name Effective Dates (start - stop) Status Members No Information
--- OUTSIDE RECORDS SUMMARY | 2024-11-23 10:54 | XMS_ITS | Continuity of Care Document ---
Author Organization [facility] Address [address] [place] [address] Phone Care Team Providers Care Bullet Casting Operator Name Role Phone Clarita Castillo Unavailable Unavailable Advance Directives Directive Yes / No Effective Date File Name No Information Encounters Encounter Description Practice Location Reason(s) For Visit Diagnoses Date Provider Providers Copied on Encounter [facility], [address], [place], [place], [id number], [place] tel:[phone] [facility] No Information [address]. [address], [place], [address], [place]. tel:[phone] Family History Family Member Type Diagnosis Age At Onset No Information Payers Payer name Insurance type Covered democrat ID Authoriza tion(s) [place] [id number] Social History Type Description Quantity Date Captured [...]
--- OUTSIDE RECORDS SUMMARY | 2024-11-23 10:54 | XMS_ITS ---
Author Organization [facility] Address [address] [facility] [address] [place], [place] [id number] Care Team Providers Care Sawdust Drier Name Role Phone JUDITH MCDONALD Unavailable [phone] Vernace, Joanie Unavailable Unavailable Allergies Allergen (clinical drug ingredient) Drug/Non Drug Allergy documented on EMR Reaction Allergy Type Onset Date Status Iodine Unknown Drug Allergy 12/30/2022 active REASON FOR VISIT *General care Vital Signs Height 67.00 in 05/09/2024 Weight 201 lbs 05/09/2024 BMI 31.48 kg/m2 05/09/2024 Height-cm 170.18 cm 05/09/2024 Weight-kg 91.17 kg 05/09/2024 Encounters Encounter Location Date Provider Diagnosis [facility] [address] [place], [place] [id number] 05/09/2024 JUDITH MCDONALD Onychomycosis B35.1 ; Pain in right toe(s) M79.674 ; Pain in left toe(s) M79.675 and Unspecified atherosclerosis of [place] arteries of extremities, bilateral legs I70.203 Assessments Encounter Date Diagnosis (ICD Code) Assessment Notes Treatment Notes Treatment Clinical Notes Section Notes 05/09/2024 Onychomycosis (ICD-10 - B35.1) 05/09/2024 Pain in right toe(s) (ICD-10 - M79.674) 05/09/2024 Pain in left toe(s) (ICD-10 - M79.675) 05/09/2024 Unspecified atherosclerosis of [place] arteries of extremities, bilateral legs (ICD-10 - I70.203) 05/09/2024 Other Nails 1-5 Bilateral were debrided extensively with nail nippers and emery board, reducing length and girth to pink healthy tissue with any subungual debris and necrotic tissue removed Plan Of Treatment Treatment Notes Assessment Notes Other Nails 1-5 Bilateral were debrided extensively with nail nippers and emery board, reducing length and girth to pink healthy tissue with any subungual debris and necrotic tissue removed Next Appt Details Follow Up: 9 weeks, Reason: Provider Name:JUDITH AGRAWAL, 11/28/2024 01:20:00 PM, [address], [address], [phone], Progress Notes * MILAGROS MARTÍNEZ SRDOB: (88 yo M)Acc No.[id number]:05/09/2024 Patient: MILAGROS PELAEZ SR Provider: Whit Mcdonald DPM :1935 A ge:88 Y S ex:Male Date:05/09/2024 Address:[address] [place] [address] Subjective: * Chief Complaints: * 1 . *General care. * HPI: H PI: General care P atient presents to the office for diabetic foot care. Patient states that their nails are thickened, elongated and painful. Patient states that it is aggravated by shoe gear. Onset is gradual. Patient denies taking prescription blood thinners but does take a daily aspirin. Date last seen by Dr. Milligan was _04/2024___. Initials sea. * ROS: G eneral / Constitutional: Patient denies c hange in appetite, fatigue, chills, fever.? C ardiovascular: Chest pain d enies. N eurologic: Loss of use of extremity d enies. * Medical History: D iabetic. * Social History: M igrated Social History: M igrated Social History: Smoking Status : Former tobacco user , History of tobacco use :. * Allergies: I odine: Allergy - Onset Date 12/30/2022. Objective: * Vitals: W t: 201 lbs, Wt-k.17 kg, Ht: 67.00 in, Ht-cm: 170.18 cm, BMI: 31.48 Index, Body Surface Area: 2.07. * Examination: P hysical Examination: Gen: T he patient is awake, alert, well developed, well groomed and well nourished. They are in no apparent distress. . Musc: F oot structure is normal bilateral. Muscle strength is 5/5 to all joints bilaterally. There is no pain on palpation. . Derm: T here is absent hair growth on bilateral feet. There are pigmentary changes of bilateral foot. The skin color is red. The skin texture is thin and shiny. Distal cooling noted in bilateral feet. Nails are thick, discolored, and dystrophic with subungual debris. They are painful to palpation. . Neuro: G rossly intact to light touch bilateral . Vasc: P osterior tibialis pulse 0/4 bilaterally. Dorsalis pedis pulse 0/4 bilaterally. No edema noted. Capillary fill time > 3 seconds to all digits. . Assessment: * Assessment: 1. O nychomycosis - B35.1 (Primary) 2 . P ain in right toe(s) - M79.674 3 . P ain in left toe(s) - M79.675 4 . U nspecified atherosclerosis of [place] arteries of extremities, bilateral legs - I70.203 Plan: * Treatment: * Procedure Codes: 1 1721 DEBRIDE NAIL, 6 OR MORE, Modifiers: Q8 * Follow Up: 9 weeks * Billing Information: * Visit Code: * Procedure Codes: 15335 DEBRIDE NAIL, 6 OR MORE. Modifiers: Q8 * Sign off status: Completed true * Provider: Whit Mcdonald DPM Date: 0 05/09/2024 Generated for Donya zhang/Brandyn/Desireeitting on: 0 11/23/2024 10:54 AM DEPUTY BRAND INSPECTOR History and Physical Notes * HPI (History of Present Illness) Category Sub-Category Detail Notes Category Not es HPI General care Patient presents to the office for diabetic foot care. Patient states that their nails are thickened, elongated and painful. Patient states that it is aggravated by shoe gear. Onset is gradual. Patient denies taking prescription blood thinners but does take a daily aspirin. Date last seen by Dr. Milligan was _04/2024___. Initials sea Examination Category Sub-Category Detail Notes Category Not es Physical Examination Gen: The patient is awake, alert, well developed, well groomed and well nourished. They are in no apparent distress. Vasc: Posterior tibialis p ulse 0/4 bilaterally. Dorsalis pedis pulse 0/4 bilaterally. No edema noted. Capillary fill time > 3 seconds to all digits. Neuro: Grossly intact to li ght touch bilateral Musc: Foot structure is no rmal bilateral. Muscle strength is 5/5 to all joints bilaterally. There is no pain on palpation. Derm: There is absent hair growth on bilateral feet. There are pigmentary changes of bilateral foot. The skin color is red. The skin texture is thin and shiny. Distal cooling noted in bilateral feet. Nails are thick, discolored, and dystrophic with subungual debris. They are painful to palpation.
--- OUTSIDE RECORDS SUMMARY | 2024-11-23 10:54 | XMS_ITS ---
Author Organization [facility] Address [address] [facility] [address] [place], [place] [id number] Care Team Providers Care Administrative Office Clerk Name Role Phone JUDITH MCDONALD Unavailable [phone] Vernace, Joanie Unavailable Unavailable Allergies Allergen (clinical drug ingredient) Drug/Non Drug Allergy documented on EMR Reaction Allergy Type Onset Date Status Iodine Unknown Drug Allergy 12/30/2022 active REASON FOR VISIT *General care Encounters Encounter Location Date Provider Diagnosis [facility] [place] [address] [place], [place] [id number] 09/19/2024 JUDITH ESTEFANI Onychomycosis B35.1 ; Pain in right toe(s) M79.674 ; Pain in left toe(s) M79.675 and Unspecified atherosclerosis of [place] arteries of extremities, bilateral legs I70.203 Assessments Encounter Date Diagnosis (ICD Code) Assessment Notes Treatment Notes Treatment Clinical Notes Section Notes 09/19/2024 Onychomycosis (ICD-10 - B35.1) 09/19/2024 Pain in right toe(s) (ICD-10 - M79.674) 09/19/2024 Pain in left toe(s) (ICD-10 - M79.675) 09/19/2024 Unspecified atherosclerosis of [place] sal[place] arteries of extremities, bilateral legs (ICD-10 - I70.203) 09/19/2024 Other Nails 1-5 Bilateral were debrided extensively [...] Follow Up: 9 weeks, Reason: Provider Name:JUDITH Kelli BYNUMG, 11/28/2024 01:20:00 PM, [address], [facility] [address], [place], [place], [phone], Progress Notes * MILAGROS MARTÍNEZ SRDOB: [birth year] (89 yo M)Acc No.[id number]:09/19/2024 Patient: Aston SABINOINOCENCIOMILAGROS SR Provider: Whit Mcodnald DPM :1935 A ge:89 Y S ex:Male Date:09/19/2024 Address:[address] [place] [address] Subjective: * Chief Complaints: * * General care * HPI: H PI: General care P atient presents to the office for diabetic foot care. Patient states that their nails are thickened, elongated and painful. Patient states that it is aggravated by shoe gear. Onset is gradual. Patient denies taking prescription blood thinners but does take a daily aspirin. Date last seen by Dr. Milligan was 07/2024. Initials sea. * ROS: G eneral / Constitutional: Patient denies c hange in appetite, fatigue, chills, fever.? C ardiovascular: Chest pain d enies. N eurologic: Loss of use of extremity d enies. * Medical History: * Surgical History: * Hospitalization/Major Diagno stic Procedure: * Social History: M igrated Social History: M igrated Social History: Smoking Status : Former tobacco user , History of tobacco use :. * Medications: * Allergies: I odine: Allergy - Onset Date 12/30/2022 Objective: * Vitals: * Examination: P hysical Examination: Gen: T [...] . P ain in right toe(s) - M79.674? 3. P ain in left toe(s) - M79.675 4 . U nspecified atherosclerosis of [place] arteries of extremities, bilateral legs - I70.203 Plan: * Treatment: * Procedure Codes: 1 1721 DEBRIDE NAIL, 6 OR MORE, Modifiers: Q8 * Follow Up: 9 weeks * Billing Information: * Visit Code: * Procedure Codes: 12930 DEBRIDE NAIL, 6 OR MORE. Modifiers: Q8 * TE SENSING ADVISOR Sign off status: Completed true * Provider: Whit Mcdonald DPM Date: 11/20/2023 Generated for Donya zhang/Brandyn/Giorgi on: 0 11/23/2024 10:53 AM REMOTE SENSING ADVISOR History and Physical Notes * HPI (History [...] Date last seen by Dr. Milligan was 07/2024. Initials sea Examination Category Sub-Category Detail Notes [...]
--- OUTSIDE RECORDS SUMMARY | 2024-11-23 10:54 | XMS_ITS | Patient Health Record ---
Author Organization [facility] Address [address] [place], [place] [phone] Care Team Providers Care Joggle Press Operator Name Role Phone ABDIRAHMANJUDITH CABA Unavailable [phone] Vernace Joanie Unavailable Unavailable Allergies Allergen (clinical drug ingredient) Drug/Non Drug Allergy documented on EMR Reaction Allergy Type Onset Date Status Iodine Unknown Drug Allergy 12/30/2022 active Reason For Referral No Information Immunizations Vaccine Route Administration Date Status Comme nts Influenza, high dose seasonal Unknown 07/08/2023 Admini stered Vital Signs Height-cm 170.18 cm 05/09/2024 Weight-kg 91.17 kg 05/09/2024 Height 67.00 in 05/09/2024 Weight 201 lbs 05/09/2024 BMI 31.48 kg/m2 05/09/2024 Encounters Encounter Location Date Provider Diagnosis [facility] [place] [address] [address] [place] [id number] 01/05/2024 JUDITH JARA Onychomycosis B35.1 ; Pain in right toe(s) M79.674 ; Pain in left toe(s) M79.675 and Unspecified atherosclerosis of [place] arteries of extremities, bilateral legs I70.203 [facility] [place] [place] [address] [place] [id number] 05/09/2024 JUDITH JARA Onychomycosis B35.1 ; Pain in right toe(s) M79.674 ; Pain in left toe(s) M79.675 and Unspecified atherosclerosis of [place] arteries of extremities, bilateral legs I70.203 [facility] [place] [address] [place] [id number] 09/19/2024 JUDITH SERRATANJA Onychomycosis B35.1 ; Pain in right toe(s) M79.674 ; Pain in left toe(s) M79.675 and Unspecified atherosclerosis of morongo arteries of extremities, bilateral legs I70.203 Assessments Encounter Date Diagnosis (ICD Code) Assessment Notes Treatment Notes Treatment Clinical Notes Section Notes 01/05/2024 Onychomycosis (ICD-10 - B35.1) 05/09/2024 Onychomycosis (ICD-10 - B35.1) 09/19/2024 Onychomycosis (ICD-10 - B35.1) 09/19/2024 Pain in right toe(s) (ICD-10 - M79.674) 05/09/2024 Pain in right toe(s) (ICD-10 - M79.674) 01/05/2024 Pain in right toe(s) (ICD-10 - M79.674) 01/05/2024 Pain in left toe(s) (ICD-10 - M79.675) 05/09/2024 Pain in left toe(s) (ICD-10 - M79.675) 09/19/2024 Pain in left toe(s) (ICD-10 - M79.675) 09/19/2024 Unspecified atherosclerosis of [place]ongo arteries of extremities, bilateral legs (ICD-10 - I70.203) 05/09/2024 Unspecified atherosclerosis of [place]ongo arteries of extremities, bilateral legs (ICD-10 - I70.203) 01/05/2024 Unspecified atherosclerosis of morongo arteries of extremities, bilateral legs (ICD-10 - I70.203) 01/05/2024 Other Nails 1-5 Bilateral were debrided extensively with nail nippers and emery board, reducing length and girth to pink healthy tissue with any subungual debris and necrotic tissue removed 05/09/2024 Other Nails 1-5 Bilateral were debrided extensively with nail nippers and emery board, reducing length and girth to pink healthy tissue with any subungual debris and necrotic tissue removed 09/19/2024 Other Nails 1-5 Bilateral were debrided extensively with nail nippers and emery board, reducing length and girth to pink healthy tissue with any subungual debris and necrotic tissue removed Plan Of Treatment Next Appt Details Provider Name:JUDITH AGRAWAL, 11/28/2024 01:20:00 PM, [address], [facility] [address], [place], [place], [phone], Insurance Providers Payer Name Payer Address Payer Phone Subscriber Number Group Number Insured Name Patient Relationship to Insured Coverage Start Date Coverage End Date Medicare Part B [place] [address] [place] [phone] [id number] MILAGROS MARTÍNEZ Self - patient is the insured BCBS Medicare Advantage Plans [address] [place] [address] [id number] MILAGROS MARTÍNEZ Self - patient is the insured Medical (General) History Medical History History ICD Code Diabetic
== END 2024-11-23 10:51 | disposition home or self-care (01) ==
PROVIDERS: PCP Nurse Practitioner; Visit Provider Nurse Practitioner
DX: M47.896 Other spondylosis, lumbar region (principal)
CPT/HCPCS: 72148

== ENCOUNTER 2024-12-16 09:47 | Outpatient (CLI) | payer MEDICARE, SELFPAY ==
[2024-12-16 16:16] LABS: Creatinine Urine 131.6 mg/dL
[2024-12-16 16:19] LABS: MALB Creatinine Ratio 8.7 mg/g (0-30); Microalbumin Urine Random 11.5 mg/L (0-16.7)
[2024-12-16 16:28] LABS: Alanine Aminotransferase 20 U/L (6-50); Albumin Level 3.9 g/dL (3.5-5.1); Alkaline Phosphatase 64 U/L (38-126); Anion Gap 8 mmol/L (4-12); Aspartate Amino Transferase 41 U/L (17-59); Bilirubin,Total 0.5 mg/dL (0.2-1.3); Blood Urea Nitrogen 22 mg/dL (9-20); Calcium 9.7 mg/dL (8.4-10.2); Carbon Dioxide 30 mmol/L (22-30); Chloride 102 mmol/L (98-107); Cholesterol 129 mg/dL (0-200); Estimated Glomerular Filt Rate > 60; Glucose 115 mg/dL (65-110); HDL Direct 39 mg/dL; Sodium 140 mmol/L (137-145); Triglycerides 99 mg/dL (<150)
[2024-12-16 16:40] LABS: LDL Cholesterol Direct 60 mg/dL
[2024-12-16 21:50] LABS: Hemoglobin A1C 6.4 % (<5.7)
== END 2024-12-16 09:48 | disposition home or self-care (01) ==
PROVIDERS: PCP Nurse Practitioner; Visit Provider Nurse Practitioner
DX: E78.5 Hyperlipidemia, unspecified (principal); E11.9 Type 2 diabetes mellitus without complications
CPT/HCPCS: 36415; 80053; 80061; 82043; 83036

== ENCOUNTER 2024-12-31 09:23 | Outpatient (CLI) | payer MEDICARE, SELFPAY ==
--- OUTSIDE RECORDS SUMMARY | 2024-12-31 10:12 | XMS_ITS ---
Author Organization [facility] Address [address] [facility] [address] [place], [place] [phone] Care Team Providers Care It Compliance Manager Name Role Phone JUDITH MCDONALD Unavailable [phone] Vernace, Joanie Unavailable Unavailable Allergies Allergen (clinical drug ingredient) Drug/Non Drug Allergy documented on EMR Reaction Allergy Type Onset Date Status Iodine Unknown Drug Allergy 12/30/2022 active REASON FOR VISIT *General care Encounters Encounter Location Date Provider Diagnosis [facility] [place] [address] [place], [place] [phone] 09/19/2024 JUDITH ESTEFANI Onychomycosis B35.1 ; Pain in right toe(s) M79.674 ; Pain in left toe(s) M79.675 and Unspecified atherosclerosis of ute arteries of extremities, bilateral legs I70.203 Assessments Encounter Date Diagnosis (ICD Code) Assessment Notes Treatment Notes Treatment Clinical Notes Section Notes 09/19/2024 Onychomycosis (ICD-10 - B35.1) 09/19/2024 Pain in right toe(s) (ICD-10 - M79.674) 09/19/2024 Pain in left toe(s) (ICD-10 - M79.675) 09/19/2024 Unspecified atherosclerosis of ute arteries of extremities, bilateral legs (ICD-10 - [...] 9 weeks, Reason: Provider Name:JUDITH Kelli BYNUMG, 01/09/2025 01:20:00 PM, [address], [facility], [place], [place], [phone], Progress Notes * MILAGROS MARTÍNEZ SRDOB: [birth year] (89 yo M)Acc No.[id number]:09/19/2024 Patient: Aston SABINOINOCENCIOMILAGROS SR Provider: Whit Mcdonald DPM :1935 A ge:89 Y S ex:Male Date:09/19/2024 Address:[address] [place] [address] Subjective: * Chief Complaints: * * General [...] M79.675 4 . U nspecified atherosclerosis of ute arteries of extremities, bilateral legs - I70.203 Plan: * Treatment: * Procedure Codes: 1 1721 DEBRIDE NAIL, 6 OR MORE, Modifiers: Q8 * Follow Up: 9 weeks * Billing Information: * Visit Code: * Procedure Codes: 83028 DEBRIDE NAIL, 6 OR MORE. Modifiers: Q8 * SORTER Sign off status: Completed true * Provider: Whit Mcdonald DPM Date: 11/20/2023 Generated for Donya zhang/Brandyn/Giorgi on: 0 12/31/2024 10:11 AM CDT History and Physical Notes * HPI (History [...]
--- OUTSIDE RECORDS SUMMARY | 2024-12-31 10:12 | XMS_ITS | Clinical Summary ---
Author Organization [facility] al Address [address] [place] [address] Care Team Providers Care Educational Manager Name Role Phone Unavailable Primary Care Provider Unavailabl e Allergies Active Allergy Reactions Criticality Noted Date Comments Adhesive Unknown Low Amoxicillin Rash Medium Ciprocinonide Hives Medium 09/29/2009 Iodinated Contrast Media Rash Medium 06/28/2007 Tetanus Toxoid Swelling Medium Medications vitamin E (AQUASOL E) 400 unit capsule daily. 8 Active aspirin 81 mg tablet daily. 7 Active kikhyyij-sua-RS -lycopen-lutein 0.4-300-250 mg-mcg-mcg tabletIndicatio ns:Vitamin Deficiency Prevention daily. Active omega 1-gmv-rpt-fish oil 100-160-1,000 mg capsule daily. 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 from Last 3 Months Immunizations Immunization Administration Dates Next Due Influenza, Quadrivalent, Rec ombinant, Egg Free, Preservative Free, Intramuscular 07/25/2019 Influenza, Trivalent, High D ose, Split, Preservative Free, Intramuscular 07/11/2018 Surgical History Surgery Date Site/Laterality Comments [place] CORONARY ARTERY BYPASS 1 CORONARY VENOUS GRAFT CABG - x 3 (Added by TW Conv) [place] ARTHRP ACETBLR/PROX FEM P ROSTC AGRFT/ALGRFT Total Hip Replacement - 11/22 (Added by TW Conv) [place] TRURL ELECTROSURG RESCJ PROSTATE BLEED COMPLETE Transurethral Resection Of Prostate (TURP) - (Added by TW Conv) [place] CYSTOURETHROSCOPY WITH BIOPSY Cystoscopy With Biopsy - bladder bx 01/23 (-); bladder bx @ OSH 02/19 (-) per [facility] review (Added by TW Conv) CORONARY [...] Hip Replacement - (Added by TW Conv) [place] NJX AA&/STRD TFRML EPI LUMBAR/SACRAL 1 LEVEL Corticosteroid Inj Transforaminal Approach Lumbar W/ Fluoroscopic Guidance - (Added by TW Conv) OH NJX AA&/STRD TFRML EPI LUMBAR/SACRAL 1 LEVEL Corticosteroid Inj Transforaminal Approach Lumbar W/ Fluoroscopic Guidance - (Added by TW Conv) OH NJX AA&/STRD TFRML EPI LUMBAR/SACRAL 1 LEVEL [...] TW Conv) Atherosclerotic heart diseas e of solomon coronary artery without angina pectoris 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 - (Added by TW Conv) [...] on file Legal Sex Male 9:16 PM CLINIC OFFICE COORDINATOR Gender Identity Not on file Sexual Orientation Not on file Obstetrics History Last Filed Vital Signs Vital Sign Reading Time Taken Comments Blood Pressure 123/72 11/21/2024 3:59 PM CLINIC OFFICE COORDINATOR Pulse 80 11/21/2024 3:59 PM CLINIC OFFICE COORDINATOR Temperature 36.2 C (97.1 F) 05/25/2020 9:30 AM CDT obtained from pt Respiratory Rate - - Oxygen Saturation 95% 11/21/2024 3:5 9 PM CLINIC OFFICE COORDINATOR Inhaled Oxygen Concentration - - Weight 81.6 kg (180 lb) 11/21/2024 3:59 PM CLINIC OFFICE COORDINATOR Height 170.2 cm (5' 7 ) 11/21/2024 3:59 PM CLINIC OFFICE COORDINATOR Body Mass Index 28.19 11/21/2024 3:59 PM CLINIC OFFICE COORDINATOR Plan of Treatment Health Maintenance Due Date Last Done Comments Depression Screening 1935 Fall Risk Assessment 1935 DTaP/Tdap/Td Vaccine (1 - Tdap) 1947 Hepatitis B Screening 1954 Pneumococcal vaccine 65+ (1 of 1 - PCV) 1986 Zoster Vaccine (1 of 2) 1986 Well Visit 65+ 2001 Influenza Vaccine (#1) 2024 07/25/2019, 2017 Procedures Procedure Name Priority Date/Time Associated Diagnosis Comments TRANSTHORACIC ECHO (TTE) COMPLETE W DOPPLER/CF W CONTRAST Routine 12/17/2024 5:07 PM CLINIC OFFICE COORDINATOR 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 ECG 12-LEAD Routine 11/21/2024 4:46 PM CLINIC OFFICE COORDINATOR Chest pain, unspecified type from Last 3 Months Results * TRANSTHORACIC ECHO (TTE) COMPLETE W DOPPLER/CF W CONTRAST (12/17/2024 5:07 PM CLINIC OFFICE COORDINATOR) Anatomical Region Laterality Modality Ultrasound 12/17/2024 4:16 PM CLINIC OFFICE COORDINATOR Narrative 12/18/2024 9:38 AM CLINIC OFFICE COORDINATOR [facility] Cardiac [place] [address] Transthoracic Echocardiographic Report Patient Name: MILAGROS MARTÍNEZ A : 1935 (89y 6m) Gender: M Study Date: 12/17/2024 04:16:46 PM Ht(Inch): 67 Wt(Lb): 179.9 BSA: 1.96 Or Nurse Manager: Zoe Bansal Location: [facility] Order Provider: CAYLA VAZQUEZ Heart Rate: 74 BMI: 28.17 BP: 126 / 85 Quality: Technically difficult study Ref Provider: CAYLA VAZQUEZ PROCEDURES: Echocardiographic Report: ([id number]) Transthoracic complete echo with contrast, 2D, spectral and tissue Doppler, color flow Doppler, M-mode. Contrast: Contrast Enhancement was Employed: After initial imaging due to sub- optimal quality related to co-morbidity defined by patient's body habitus, used Perflutren contrast because 2 of 16 LV wall segments in any view not visualized, using the volume necessary to obtain adequate images and. INDICATIONS: I25.10 Atherosclerotic heart disease of solomon coronary artery without angina pectoris. FINDINGS: Left Ventricle: Normal left ventricular size based on volume index. Concentric LV remodeling. Mildly depressed left ventricular systolic function. The Ejection Fraction (Hutchinson's) is measured at 45 %. Right Ventricle: Normal right ventricular size. Mild right ventricular hypokinesis. Left Atrium: The left atrium is normal in size. Right Atrium: The right atrium is normal in size. Mitral Valve: Normal mitral valve leaflet structure. Moderate mitral annular calcification. No mitral regurgitation seen. Aortic Valve: Trileaflet aortic valve. The aortic cusps are moderately thickened in appearance. Aortic cusps appear moderately calcified. No aortic valve stenosis. The mean transaortic gradient is 9.59 mmHg. The aortic valve area by the continuity equation (using VTI) is 1.33 cm2. Aortic valve dimensionless index 0.33. Tricuspid Valve: The tricuspid valve demonstrates normal leaflet structure. No tricuspid regurgitation seen. Pulmonic Valve: The pulmonic valve demonstrates normal leaflet structure. No evidence of pulmonic regurgitation. Pericardium: No pericardial effusion. Aorta: The aortic root is normal in size when indexed. CONCLUSIONS: 1. Concentric LV remodeling. Mildly depressed left ventricular systolic function. The Ejection Fraction (Hutchinson's) is measured at 45 %. 2. Normal right ventricular size. Mild right ventricular hypokinesis. MEASUREMENTS: 2D/MM Value Range Doppler Value Range LVIDd 2D 4.46 cm [ 4.20 - 5.80 ] AV Peak Sb 2.06 m/s [ 1.00 - 1.70 ] LVIDs 2D 3.32 cm [ 2.50 - 4.00 ] AV Peak PG 16.97 IVSd 2D 1.07 cm [ 0.60 - 1.00 ] AV Mean PG 9.59 mmHg LVPWd 2D 1.36 cm [ 0.60 - 1.00 ] AV VTI 48.98 cm LV Thickness Ratio 0.79 LVOT Peak Sb 0.74 m/s [ 0.70 - 1.10 ] LV FS 2D 25.66 % [ 25.00 - 43.00 ] LVOT Peak PG 2.19 LV Mass 2D 201.76 g LVOT Mean PG 0.96 mmHg LV Mass Index 2D 102.94 g/m2 LVOT VTI 16.15 cm RWT 0.61 LVOT Diam 2.27 cm EDV Mod BP 124.46 ml [ 62.00 - 150.00 ] HAYDE VTI 1.33 cm2 LV EDV Index 63.50 ml/m2 LVOT/AV VTI 0.33 - Dimensionless index (DVI) ESV Mod BP 77.94 ml [ 21.00 - 61.00 ] MV E Peak Sb 0.65 m/s [ 0.60 - 1.30 ] EF Mod BP 45 % [ 52 - 72 ] MV A Peak Sb 0.77 m/s [ 1.00 - 1.20 ] RV Base Dimen 2D 3.9 cm [ 2.5 - 4.2 ] MV E/A 0.84 ratio [ 0.80 - 1.50 ] TAPSE 1.46 cm [ 1.71 - 5.00 ] MV Decel Time 223.21 msec [ 104.00 - 258.00 ] AoR Diam 2D 3.00 cm [ 3.10 - 3.70 ] Med E` Sb 6.07 cm/sec [ 8.00 - 15.00 ] Ao Root Index 1.53 cm/m2 [ 1.00 - 2.00 ] Lat E` Sb 6.92 cm/sec [ 10.00 - 15.00 ] Average E/E` 10.01 RV S` 4.86 cm/sec - ATTESTATION: I have reviewed and interpreted the pertinent images and measurements of this study. I attest to the conclusions in the final report that is provided above. DISCLAIMER: The study images and the final report will be retained in the patient chart by the Echo Laboratory for the legally required time period. This chart constitutes the legal record of any testing performed. Electronically Signed By: Domingo Perales MD 12/18/2024 9:37:44 AM CLINIC OFFICE COORDINATOR Electronically Signed By: Domingo Perales MD 12/18/2024 9:37:44 AM CLINIC OFFICE COORDINATOR CC: Cayla Vazquez MD Procedure Note Domingo Perales MD - 12/18/2024 [facility] Cardiac [place] [address] [place] [address] Transthoracic Echocardiographic Report Patient Name: MILAGROS MARTÍNEZ A : 1935 (89y 6m) Gender: M Study Date: 12/17/2024 04:16:46 PM Ht(Inch): 67 Wt(Lb): 179.9 BSA: 1.96 Or Nurse Manager: Zoe Bansal Location: [facility] Order Provider:CAYLA VAZQUEZ Heart Rate: 74 BMI: 28.17 BP: 126 / 85 Quality: Technically difficultstudy Ref Provider: CAYLA VAZQUEZ PROCEDURES: Echocardiographic Report: ([id number]) Transthoracic complete echo withcontrast, 2D, spectral and tissue Doppler, color flow Doppler, M-mode. Contrast: Contrast Enhancement was Employed: After initial imaging due tosub- optimal quality related to co-morbidity defined by patient's body habitus, usedPerflutren contrast because 2 of 16 LV wall segments in any view not visualized,using the volume necessary to obtain adequate images and. INDICATIONS: I25.10 Atherosclerotic heart disease of solomon coronary artery withoutangina pectoris. FINDINGS: Left Ventricle: Normal left ventricular size based on volume index.Concentric LV remodeling. Mildly depressed left ventricular systolic function. TheEjection Fraction (Hutchinson's) is measured at 45 %. Right Ventricle: Normal right ventricular size. Mild right ventricularhypokinesis. Left Atrium: The left atrium is normal in size. Right Atrium: The right atrium is normal in size. Mitral Valve: Normal mitral valve leaflet structure. Moderate mitralannular calcification. No mitral regurgitation seen. Aortic Valve: Trileaflet aortic valve. The aortic cusps are moderatelythickened in appearance. Aortic cusps appear moderately calcified. No aortic valvestenosis. The mean transaortic gradient is 9.59 mmHg. The aortic valve area by the continuityequation (using VTI) is 1.33 cm2. Aortic valve dimensionless index 0.33. Tricuspid Valve: The tricuspid valve demonstrates normal leafletstructure. No tricuspid regurgitation seen. Pulmonic Valve: The pulmonic valve demonstrates normal leaflet structure.No evidence of pulmonic regurgitation. Pericardium: No pericardial effusion. Aorta: The aortic root is normal in size when indexed. CONCLUSIONS: 1. Concentric LV remodeling. Mildly depressed left ventricular systolicfunction. The Ejection Fraction (Hutchinson's) is measured at 45 %. 2. Normal right ventricular size. Mild right ventricular hypokinesis. MEASUREMENTS: 2D/MM Value Range DopplerValue Range LVIDd 2D 4.46 cm [ 4.20 - 5.80 ] AV Peak Vel2.06 m/s [ 1.00 - 1.70 ] LVIDs 2D 3.32 cm [ 2.50 - 4.00 ] AV Peak PG16.97 IVSd 2D 1.07 cm [ 0.60 - 1.00 ] AV Mean PG9.59 mmHg LVPWd 2D 1.36 cm [ 0.60 - 1.00 ] AV VTI48.98 cm LV Thickness Ratio 0.79 LVOT Peak Vel0.74 m/s [ 0.70 - 1.10 ] LV FS 2D 25.66 % [ 25.00 - 43.00 ] LVOT Peak PG2.19 LV Mass 2D 201.76 g LVOT Mean PG0.96 mmHg LV Mass Index 2D 102.94 g/m2 LVOT VTI16.15 cm RWT 0.61 LVOT Diam2.27 cm EDV Mod BP 124.46 ml [ 62.00 - 150.00 ] HAYDE VTI1.33 cm2 LV EDV Index 63.50 ml/m2 LVOT/AV VTI0.33 - Dimensionless index (DVI) ESV Mod BP 77.94 ml [ 21.00 - 61.00 ] MV E Peak Vel0.65 m/s [ 0.60 - 1.30 ] EF Mod BP 45 % [ 52 - 72 ] MV A Peak Vel0.77 m/s [ 1.00 - 1.20 ] RV Base Dimen 2D 3.9 cm [ 2.5 - 4.2 ] MV E/A0.84 ratio [ 0.80 - 1.50 ] TAPSE 1.46 cm [ 1.71 - 5.00 ] MV Decel Cppc106.21 msec [ 104.00 - 258.00 ] AoR Diam 2D 3.00 cm [ 3.10 - 3.70 ] Med E` Vel6.07 cm/sec [ 8.00 - 15.00 ] Ao Root Index 1.53 cm/m2 [ 1.00 - 2.00 ] Lat E` Vel6.92 cm/sec [ 10.00 - 15.00 ] Average E/E` 10.01 RV S` 4.86 cm/sec - ATTESTATION: I have reviewed and interpreted the pertinent images and measurements ofthis study. I attest to the conclusions in the final report that is provided above. DISCLAIMER: The study images and the final report will be retained in the patientchart by the Echo Laboratory for the legally required time period. This chart constitutesthe legal record of any testing performed. Electronically Signed By: Domingo Perales MD 12/18/2024 9:37:44 AM CLINIC OFFICE COORDINATOR Electronically Signed By: Domingo Perales MD 12/18/2024 9:37:44 AM CLINIC OFFICE COORDINATOR CC: Cayla Vazquez MD Cayla Vazquez MD CV ECHO PROCEDURES Final Resu lt * ECG 12 lead (11/21/2024 4:46 PM CLINIC OFFICE COORDINATOR) Cayla Vazquez MD ECG ORDERABLES Edited Result - Final from Last 3 Months Insurance MEDICARE [facility] MEDICARE SUPPLEMENT MEDICARE [facility] MEDICARE SUPPLEMENT [facility] Care Teams Educational Manager Relationship Specialty Start Date End Date Joanie Rosario 12/20/24
--- OUTSIDE RECORDS SUMMARY | 2024-12-31 10:12 | XMS_ITS | Data Portability ---
Author Organization [facility] Main Office Address [address] [place] [address] Care Team Providers Care Water/Wastewater Project Manager Name Role Phone SARAH DING Primary Care Provider SARAH DING Referring Provider [phone] Assessment Encounter Date Assessment Date Assessment LastModified by Organization Details LastModified Time 04/03/2023 04/03/2023 HPI: 87-year-old male who came in today for a cortisone injection into the left knee. He a shot 3 months ago at [place]. He was being evaluated for his hip revision after a fall. Fortunately he did have any complications of his hip revision. He had quite a bit of soreness in the knee and the give him an injection 3 months ago. It helped for about month. Takes Tylenol and cqav-vjg-rkvvwce naproxen on a regular basis and this [...] patient more than half of this in caqo-tz-oosp conversation [email or web address] Not available 04/03/2023 15:31:27 07/03/2023 [...] DO Not Attach Compendium, Do Not Delete/merge, [id number] 4 17:08:44 injection/a spiration joint/bursa (PROC) - in office procedure, administere d by provider 2022 023 [email or web address] In-Office Order, Internal Use Only DO Not Attach Compendium DO Not Attach Compendium, Do Not Delete/merge, [id number] 3 14:06:16 injection/a spiration joint/bursa (PROC) - in office procedure, administere d by provider 2022 023 [email or web address] In-Office Order, Internal Use Only DO Not Attach Compendium DO Not Attach Compendium, Do Not Delete/merge, [id number] 3 14:12:13 injection/a spiration joint/bursa (PROC) - in office procedure, administere d by provider 2022 023 [email or web address] In-Office Order, Internal Use Only DO Not Attach Compendium DO Not Attach Compendium, Do Not Delete/merge, [id number] 3 15:23:39 Surgeries None recorded. Imaging XR, knee 2022 023 [email or web address] [facility] [place], [address], [place], [address], 3 16:34:37 Medication Orders Kenalog 10 mg/mL suspension for injection [address] [facility], [address], [place], [place], [id number], 4 17:08:44 bupivacaine (PF) 0.25 % (2.5 mg/mL) injection solution 2023 024 [email or web address], [address], [place], [place], [id number], 4 17:08:44 Kenalog 10 mg/mL suspension for injection [address] [facility]89, [address], [place], [place], [id number], 3 18:47:21 ropivacaine (PF) 5 mg/mL (0.5 %) injection solution [address] [facility]70, [address], [place], [place], [id number], 3 18:47:21 Kenalog 10 mg/mL suspension for injection [address] [facility]17143, [address], [place], [place], [id number], 3 19:03:03 ropivacaine (PF) 5 mg/mL (0.5 %) injection solution 2022 023 [email or web address] [facility] #53216, [address], [place], [place], [id number], 3 14:04:44 Kenalog 10 mg/mL suspension for injection [address] [facility]33858, [address], [place], [place], [id number], 3 16:34:37 ropivacaine (PF) 5 mg/mL (0.5 %) injection solution 2022 023 [email or web address] [facility] #98700, [address], [place], [place], [id number], 3 14:04:44 Patient TargetsNo targets recorded. Patient InstructionsNo instructions recorded. Reason for Referral None Reported. Results Created Date Observation Date Name Description Value Unit Range Abnormal Flag Note LastModifiedBy Organization Detail LastModifiedTime 04/03/20 23 XR, knee No observ ation record ed. [email or web address] [facility] [place] [address], [place], [address], 04/03/2023 15:28:30 Result Notes None recorded. Problems Name Problem SNOMED Code Status Onset Date Resolution Date Notes Provider Name and Address Organization Details Recorded Time Acquired trigger finger 1775142 Active Not Available Counts include 234 beds at the [facility] 3 13:13:10 Low back pain 467855408 Active Not Available [facility] 3 13:13:10 Enthesopat hy of hip region 85344072 Active Not Available Counts include 234 beds at the [facility] 3 13:13:10 Inflammato ry disorder of extremity 507780897 Active Not Available Counts include 234 beds at the [facility] 3 13:13:10 Osteoarthr itis 390298208 Active Not Available Counts include 234 beds at the [facility] 3 13:13:10 Hip pain 42929048 Active Not Available Counts include 234 beds at the [facility] 3 13:13:10 Pain of right knee joint 0718042503055 00 Active 2022 KENDRA Payne [employer] [facility] [employer] [facility] 3 14:32:59 Osteoarthr itis of left knee joint 5519807409520 09 Active 2022 KENDRA Payne, [employer] [facility] [employer] [facility] 3 14:11:10 Problem Notes None recorded. Procedures Surgical History Date Name Laterality Status Provider Name and Address Organization Details Recorded Time procedure on wrist completed KENDRA Payne [facility] [employer] [facility] 04/03/2023 14:41:30 Hip surgery completed KENDRA Payne [facility] [employer] [facility] 04/03/2023 14:41:36 Knee Surgery completed KENDRA Payne [facility] [employer] [facility] 04/03/2023 14:41:43 Imaging Results Imaging Date Name Status LastModified by Organiz ation Details LastModified Time 04/03/2023 XR, knee completed [email or web address] [facility] [place] [address], [place], [address], 04/03/2023 15:28:30 Procedure Notes None recorded. Medical [...] Updated DateTime 04/03/2023 152.4 cm 37.5 kg/m2 07724.74 g KENDRA Payne [employer] [facility] 04/03/2023 14:57:22 Date Recorded Body height Provider Name an d Address Organization Details Last Updated DateTime 07/03/2023 152.4 cm KENDRA Payne [facility] [employer] [facility] 07/03/2023 14:10:43 Date Recorded Body height Provider Name an d Address Organization Details Last Updated DateTime 10/02/2023 152.4 cm KENDRA Payne [facility] 10/02/2023 14:04:22 Date Recorded Body height Provider Name an d Address Organization Details Last Updated DateTime 01/01/2024 152.4 cm Miranda Martinez [facility] 01/01/2024 14:11:55 Social History Question Answer Notes LastModified by Organizat ion Details LastModified Time Tobacco Smoking Status Never Smoker KENDRA Payne null, [facility] 04/03/2023 14:41:21 What Is Your Level Of Alcohol Consumption? None [email or web address] Information not available 04/03/2023 Sex: Unknown Functional Status None recorded. Mental Status None recorded. Family History Relationship Description Onset Age of this Age Resolved Age Notes LastModified by Organization Details LastModified Time Sister Hypertensive disorder [email or web address] Not available 2022 14:40:43 Sister Diabetes mellitus [email or web address] Not available 2022 14:41:09 Brother Diabetes mellitus Not available 2022 14:41:08 Mother Diabetes mellitus [email or web address] Not available 2022 14:41:09 Medical History Condition Response ARTHRITIS Y DIABETES, TYPE Y HYPERTENSION Y Past Encounters Encounter ID Performer Location Encounter Start Date Encounter Closed Date Diagnosis/Indication Diagnosis SNOMED-CT Code Diagnosis ICD10 Code Diagnosis Note [id number] RICCARDO Ceron [facility] [place] [address] [place] [address] 04/03/2023 14:04:49 04/03/2023 15:37:19 Pain of right knee joint 2416955560 50643 M25.614 [id number] RICCARDO Ceron [facility] [place] [address] [place] [address] 07/03/2023 14:01:05 07/03/2023 14:27:56 Osteoarthritis of left knee joint 5195444784 48370 M17.12 [id number] RICCARDO Ceron [facility] [place] [address] [place] [address] 10/02/2023 14:01:36 10/02/2023 14:43:29 Osteoarthritis of left knee joint 8353305761 31636 M17.12 [id number] RICCARDO Ceron [facility] [place] [address] [facility] [address] [place] [address] 01/01/2024 14:05:45 01/01/2024 16:48:48 Osteoarthritis of left knee joint 1553826063 19216 M17.12 Health Concerns Section Related Observation LastModified by Organization Detai ls LastModified Time None Recorded Concern Status LastModified by Organization Details LastModified Time None Recorded Advance Directives Directive None Recorded Payers Encounter Date Sequence Insurance Name Policy Number Policy Mas Covered Member ID Mas Member ID Guarantor Name 04/03/2023 1 [place] Romie A Antony Sr [id number] Romie A Antony 04/03/2023 2 [place] [id number] Romie A Antony Sr [id number] Romie A Antony 07/03/2023 1 [place] Romie A Antony Sr [id number] Romie A Antony 07/03/2023 2 [place] [id number] Romie A Antony Sr [id number] Romie A Antony 10/02/2023 1 [place] Romie A Antony Sr [id number] Romie A Antony 10/02/2023 2 [place] [id number] Romie A Antony Sr [id number] Romie A Antony 01/01/2024 1 [place] Romie A Antony Sr [id number] Romie A Antony 01/01/2024 2 [place] [id number] Romie A Antony Sr [id number] Romie A Antony
--- OUTSIDE RECORDS SUMMARY | 2024-12-31 10:12 | XMS_ITS | Patient Health Record ---
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, bilateral legs I70.203 [facility] [address] [place] [address] [id number] 05/09/2024 JUDITH JARA Onychomycosis B35.1 ; Pain in right toe(s) M79.674 ; Pain in left toe(s) M79.675 and 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, bilateral legs I70.203 [facility] [place] [facility] [address] [place] [address] [id number] 09/19/2024 JUDITH SERRATANJA Onychomycosis B35.1 ; Pain in right toe(s) M79.674 ; Pain in left toe(s) M79.675 and 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, bilateral legs I70.203 Assessments [...] (ICD-10 - M79.675) 09/19/2024 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, bilateral legs (ICD-10 - I70.203) 05/09/2024 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, bilateral legs (ICD-10 - I70.203) 01/05/2024 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, bilateral legs (ICD-10 - [...] Treatment Next Appt Details Provider Name:JUDITH AGRAWAL, 01/09/2025 01:20:00 PM, [address], [facility], [place], [place], [id number], Insurance Providers Payer Name Payer Address Payer Phone Subscriber Number Group Number Insured Name Patient Relationship to Insured Coverage Start Date Coverage End Date Medicare Part B [place] [address] [place] [phone] [id number] MILAGROS MARTÍNEZ Self - patient is the insured BCBS Medicare Advantage Plans [address] [place] [address] [id number] MILAGROS MARTÍNEZ Self - patient is the insured Medical (General) History Medical History History ICD Code Diabetic
--- OUTSIDE RECORDS SUMMARY | 2024-12-31 10:12 | XMS_ITS | Referral Summary ---
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 (Primary Dx); Shortness of breath 12/17/2024 3:51 PM INTERIM CONTROLLER - 12/17/2024 11:59 PM INTERIM CONTROLLER Hospital Encounter [facility] Cardiac Diagnostic Lab [address] [facility] 8th [place] [address] 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 Discharge Disposition: Discharge to home or self care 11/21/2024 4:15 PM INTERIM CONTROLLER Office Visit [facility] Cardiology [address] [facility] 8th [place] [address] [place] [address] Cayla Vazquez MD Chest pain, unspecified type (Primary Dx); 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 8 Active aspirin 81 mg tablet daily. 7 Active okoavvho-hzk-NZ -lycopen-lutein 0.4-300-250 mg-mcg-mcg tabletIndicatio ns:Vitamin Deficiency Prevention daily. Active omega 3-qze-qgf-fish oil 100-160-1,000 mg capsule daily. Active tamsulosin [...] mg total) by mouth daily Active C,E,zinc,copper 63-ciean2p-ctm (Ocuvite Adult 50 Plus) 250-5-1 mg capsule [...] 05/10/2018 Essential hypertension 05/10/2018 Hyperlipidemia 05/10/2018 Immunizations Immunization Administration Dates Next Due Influenza, Quadrivalent, Rec ombinant, Egg Free, Preservative Free, Intramuscular 07/25/2019 Influenza, Trivalent, High D ose, Split, Preservative Free, Intramuscular 07/11/2018 Social History Tobacco Use Types Packs/Day Years Used Date Smoking Tobacco: Former Smokeless Tobacco: Never Sex and Gender Information Value Date Recorded Sex Assigned at Not on file Legal Sex Male 9:16 PM INTERIM CONTROLLER Gender Identity Not on file Sexual Orientation Not on file Last Filed Vital Signs Vital Sign Reading Time Taken Comments Blood Pressure 123/72 11/21/2024 3:59 PM INTERIM CONTROLLER Pulse 80 11/21/2024 3:59 PM INTERIM CONTROLLER Temperature 36.2 C (97.1 F) 05/25/2020 9:30 AM CDT obtained from pt Respiratory Rate - - Oxygen Saturation 95% 11/21/2024 3:5 9 PM INTERIM CONTROLLER Inhaled Oxygen Concentration - - Weight 81.6 kg (180 lb) 11/21/2024 3:59 PM INTERIM CONTROLLER Height 170.2 cm (5' 7 ) 11/21/2024 3:59 PM INTERIM CONTROLLER Body Mass Index 28.19 11/21/2024 3:59 PM INTERIM CONTROLLER Plan of Treatment Not on file Procedures Procedure Name Priority Date/Time Associated Diagnosis Comments TRANSTHORACIC ECHO (TTE) COMPLETE W DOPPLER/CF W CONTRAST Routine 12/17/2024 5:07 PM INTERIM CONTROLLER 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 ECG 12-LEAD Routine 11/21/2024 4:46 PM INTERIM CONTROLLER Chest pain, unspecified type from Last 3 Months Results * TRANSTHORACIC ECHO (TTE) COMPLETE W DOPPLER/CF W CONTRAST (12/17/2024 5:07 PM INTERIM CONTROLLER) Anatomical Region Laterality Modality Ultrasound 12/17/2024 4:16 PM INTERIM CONTROLLER Narrative 12/18/2024 9:38 AM INTERIM CONTROLLER [facility] [place]iac [place] [address] Transthoracic Echocardiographic Report Patient Name: TANYA MILAGROSWale : 1935 (89y 6m) Gender: M Study Date: 12/17/2024 04:16:46 PM Ht(Inch): 67 Wt(Lb): 179.9 BSA: 1.96 Trimming Operator: Zoe Bansal Location: [facility] Order Provider: CAYLA VAZQUEZ Heart Rate: 74 BMI: 28.17 BP: 126 / 85 Quality: Technically difficult study Ref Provider: CAYLA VAZQUEZ PROCEDURES: Echocardiographic Report: ([id number]) Transthoracic complete echo with contrast, 2D, spectral [...] and. 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 FINDINGS: Left [...] By: Domingo Perales MD 12/18/2024 9:37:44 AM INTERIM CONTROLLER Electronically Signed By: Domingo Perales MD 12/18/2024 9:37:44 AM INTERIM CONTROLLER CC: Cayla Vazquez MD Procedure Note Domingo Perales MD - 12/18/2024 [facility] [place] [address] Transthoracic Echocardiographic Report Patient Name: MILAGROS MARTÍNEZ A : 1935 (89y 6m) Gender: M Study Date: 12/17/2024 04:16:46 PM Ht(Inch): 67 Wt(Lb): 179.9 BSA: 1.96 Trimming Operator: Zoe Bansal Location: [facility] Order Provider:CAYLA VAZQUEZ Heart Rate: 74 BMI: 28.17 BP: 126 / 85 Quality: Technically difficultstudy Ref Provider: CAYLA VAZQUEZ PROCEDURES: Echocardiographic Report: ([id number]) Transthoracic complete echo withcontrast, 2D, spectral and tissue Doppler, color flow Doppler, M-mode. Contrast: Contrast Enhancement was Employed: After initial imaging due tosub- optimal quality related to co-morbidity defined by patient's body habitus, usedPerflutren contrast because 2 of 16 LV wall segments in any view not visualized,using the volume necessary to obtain adequate images and. INDICATIONS: I25.10 Atherosclerotic heart disease of chickahominy indian tribe coronary artery withoutangina pectoris. FINDINGS: Left Ventricle: [...] [ 1.71 - 5.00 ] MV Decel Dpnf993.21 msec [ 104.00 - 258.00 ] AoR [...] By: Domingo Perales MD 12/18/2024 9:37:44 AM INTERIM CONTROLLER Electronically Signed By: Domingo Perales MD 12/18/2024 9:37:44 AM INTERIM CONTROLLER CC: Cayla Vazquez MD us Cayla Vazquez MD CV ECHO PROCEDURES Final Resu lt * ECG 12 lead (11/21/2024 4:46 PM INTERIM CONTROLLER) us Cayla Vazquez MD ECG ORDERABLES Edited Result - Final from Last 3 Months Insurance MEDICARE [facility] BLUE CROSS MEDICARE SUPPLEMENT MEDICARE BLUE CROSS MEDICARE SUPPLEMENT [facility] Care Teams Under Cutter Relationship Specialty Start Date End Date Joanie Rosario 12/20/24
--- OUTSIDE RECORDS SUMMARY | 2024-12-31 10:12 | XMS_ITS ---
Author Organization [facility] Address [address] [facility] [address] [place], [place] [id number] Care Team Providers Care Nuclear Weapons Specialist Name Role Phone JUDITH MCDONALD Unavailable [phone] Vernace, Joanie Unavailable Unavailable Allergies Allergen (clinical drug ingredient) Drug/Non Drug Allergy documented on EMR Reaction Allergy Type Onset Date Status Iodine Unknown Drug Allergy 12/30/2022 active REASON FOR VISIT *General care Vital Signs Height 67.00 in 05/09/2024 Weight 201 lbs 05/09/2024 BMI 31.48 kg/m2 05/09/2024 Height-cm 170.18 cm 05/09/2024 Weight-kg 91.17 kg 05/09/2024 Encounters Encounter Location Date Provider Diagnosis [facility] [place] [address] [place], [place] [id number] 05/09/2024 JUDITH MCDONALD Onychomycosis B35.1 ; Pain in right toe(s) M79.674 ; Pain in left toe(s) M79.675 and Unspecified atherosclerosis of [place] arteries of extremities, bilateral legs I70.203 Assessments Encounter Date Diagnosis (ICD Code) Assessment Notes Treatment Notes Treatment Clinical Notes Section Notes 05/09/2024 Onychomycosis (ICD-10 - B35.1) 05/09/2024 Pain in right toe(s) (ICD-10 - M79.674) 05/09/2024 Pain in left toe(s) (ICD-10 - M79.675) 05/09/2024 Unspecified atherosclerosis of [place] arteries of extremities, bilateral legs (ICD-10 - [...] Up: 9 weeks, Reason: Provider Name:JUDITH AGRAWAL, 01/09/2025 01:20:00 PM, [address], [address], [phone], Progress Notes * MILAGROS MARTÍNEZ SRDOB: (88 yo M)Acc No.[id number]:05/09/2024 Patient: MILAGROS PELAEZ SR Provider: Whit Mcdonald DPM :1935 A ge:88 Y S ex:Male Date:05/09/2024 Address:[address] [place] [address] Subjective: * Chief Complaints: * 1 . [...] M79.675 4 . U nspecified atherosclerosis of [place] arteries of extremities, bilateral legs - I70.203 Plan: * Treatment: * Procedure Codes: 1 1721 DEBRIDE NAIL, 6 OR MORE, Modifiers: Q8 * Follow Up: 9 weeks * Billing Information: * Visit Code: * Procedure Codes: 70051 DEBRIDE NAIL, 6 OR MORE. Modifiers: Q8 * Sign off status: Completed true * Provider: Whit Mcdonald DPM Date: 0 05/09/2024 Generated for Donya zhang/Brandyn/Giorgi on: 0 12/31/2024 10:12 AM CDT History and Physical Notes * [...]
--- OUTSIDE RECORDS SUMMARY | 2024-12-31 10:12 | XMS_ITS | Continuity of Care Document ---
Author Organization [facility] Address [address] [place] [address] Phone Care Team Providers Care Global Chief Experience Officer Name Role Phone Clarita Castillo Unavailable Unavailable Advance Directives Directive Yes / No Effective Date File Name No Information Encounters Encounter Description Practice Location Reason(s) For Visit Diagnoses Date Provider Providers Copied on Encounter [facility], [address], [place], [place], [address], [place] tel:[phone] [facility] No Information 3 Anna Otto. [address] , [address], [place], [address], [place]. tel:[phone] Family History Family Member Type Diagnosis Age At Onset No Information Payers Payer name Insurance type Covered democrat ID Authoriza tion(s) [place] [id number] Social History Type Description Quantity Date Captured [...]
--- OUTSIDE RECORDS SUMMARY | 2024-12-31 10:12 | XMS_ITS | Continuity of Care Document ---
Author Organization [facility] Address [address] [place] [address] Phone Care Team Providers Care Fourth Hand Name Role Phone [facility] Unavailable Unavailable Advance Directives Directive Yes / No Effective Date File Name No Information Encounters Encounter Description Practice Location Reason(s) For Visit Diagnoses Date Provider Providers Copied on Encounter [facility], [address], [place], [place], [id number], [place] tel:[phone] [facility] No Information 0 [address] [facility]. [address], [place], [place], [id number] , [place]. tel:[phone] Family History Family Member Type Diagnosis Age At Onset No Information Payers Payer name Insurance type Covered constitution party ID Authoriza tion(s) No Information Social History [...]
--- OUTSIDE RECORDS SUMMARY | 2024-12-31 10:12 | XMS_ITS | Clinical Summary ---
Author Organization [facility] Address [address] [place] [address] Phone Care Team Providers Care Dowel Sander Operator Name Role Phone Benja Smith MD Primary Care Provider Social History Tobacco Use Types Packs/Day Years Used Date Smoking Tobacco: Never Assessed Sex and Gender Information Value Date Recorded Sex Assigned at Not on file Legal Sex Male 10:17 AM QUILL MACHINE OPERATOR Gender Identity Not on file Sexual Orientation Not on file Plan of Treatment Health Maintenance Due Date Last Done Comments DTAP/TDAP/TD VACCINES (1 - Tdap) 1955 PNEUMOCOCCAL VACCINE 50+ YEARS (1 of 1 - PCV) 06/01/19 86 ZOSTER VACCINE (1 of 2) 1986 RSV VACCINE (60+ or ) (1 - 1-dose 75+ series) 2011 INFLUENZA VACCINE (#1) 2024 Insurance MEDICARE PART A HOSPITAL ONLY BCBS SUPP Care Teams Dowel Sander Operator Relationship Specialty Start Date End Date Benja Smith MD [address] [place] [address] PCP - General Family Practice 12/20/17
--- OUTSIDE RECORDS SUMMARY | 2024-12-31 10:13 | XMS_ITS ---
Author Organization [facility] Address [address] [place], [place] [phone] Care Team Providers Care Air Tucker Name Role Phone ESTEFAIN JUDITH Unavailable [phone] Vernace, Joanie Unavailable Unavailable REASON FOR VISIT *General care Encounters Encounter Location Date Provider Diagnosis [facility] [place] [address] [place], [place] [phone] 07/11/2024 JUDITH MCDONALD Plan Of Treatment Next Appt Details Provider Name:JUDITH AGRAWAL, 01/09/2025 01:20:00 PM, [address], [place], [place], [id number], Progress Notes * MILAGROS MARTÍNEZ SRDOB: (89 yo M)Acc No.[id number]:07/11/2024 Patient: MILAGROS PELAEZ SR Provider: Whit Mcdonald DPM :1935 A ge:89 Y S ex:Male Date:07/11/2024 Address:[address] [place], [place] [phone] Subjective: * Chief Complaints: * 1 . *General care. * Medical History: Objective: * Vitals: Assessment: Plan: * Treatment: * Billing Information: * Visit Code: * Procedure Codes: * Electronic signature of JUDITH MCDONALD DPM on 12/31/2024 at 10:12 AM CDT Sign off status: Pending * Provider: Whit Mcdonald DPM Date: 0 07/11/2024 Generated for Donya zhang/Brandyn/Giorgi on: 0 12/31/2024 10:12 AM CDT
[2024-12-31 13:19] LABS: Hematocrit 46.2 % (42.0-52.0); Hemoglobin 14.9 g/dL (14.0-18.0); Mean Corpuscular HGB Conc 32.3 g/dl (32-36); Mean Corpuscular Volume 93.1 fl (80-100); Platelet Count Result 276 k/mm3 (150-375); Red Blood Count 4.96 M/mm3 (4.6-6.20); Red Cell Distribution Width 13.2 % (11.5-14.5); White Blood Count 6.8 K/mm3 (4.5-10.0)
[2024-12-31 13:54] LABS: Alanine Aminotransferase 23 U/L (6-50); Albumin Level 4.6 g/dL (3.5-5.1); Alkaline Phosphatase 61 U/L (38-126); Anion Gap 15 mmol/L (4-12); Aspartate Amino Transferase 42 U/L (17-59); Bilirubin,Total 0.7 mg/dL (0.2-1.3); Blood Urea Nitrogen 24 mg/dL (9-20); Calcium 10.2 mg/dL (8.4-10.2); Carbon Dioxide 29 mmol/L (22-30); Chloride 99 mmol/L (98-107); Cholesterol 156 mg/dL (0-200); Estimated Glomerular Filt Rate > 60; Glucose 114 mg/dL (65-110); HDL Direct 44 mg/dL; Potassium 4.3 mmol/L (3.4-5.0); Sodium 143 mmol/L (137-145); Triglycerides 147 mg/dL (<150)
[2024-12-31 14:05] LABS: LDL Cholesterol Direct 66 mg/dL
[2024-12-31 14:21] LABS: Creatinine Urine 87.4 mg/dL
[2024-12-31 14:47] LABS: MALB Creatinine Ratio < 6.9 mg/g (0-30); Microalbumin Urine Random < 6.0 mg/L (0-16.7)
[2024-12-31 14:49] LABS: Hemoglobin A1C 6.2 % (<5.7)
== END 2024-12-31 09:24 | disposition home or self-care (01) ==
PROVIDERS: PCP Family Medicine; Visit Provider Nurse Practitioner
DX: E78.5 Hyperlipidemia, unspecified (principal); I10 Essential (primary) hypertension; E55.9 Vitamin D deficiency, unspecified; E11.65 Type 2 diabetes mellitus with hyperglycemia
CPT/HCPCS: 36415; 80053; 80061; 82043; 82306; 83036; 85027

== ENCOUNTER 2025-01-03 12:42 | Outpatient (CLI) | payer MEDICARE, SELFPAY ==
--- OUTSIDE RECORDS SUMMARY | 2025-01-03 13:20 | XMS_ITS | Continuity of Care Document ---
Author Organization [facility] Address [address] [place] [address] Phone Care Team Providers Care Build Master Name Role Phone Clarita Castillo Unavailable Unavailable Advance Directives Directive Yes / No Effective Date File Name No Information Encounters Encounter Description Practice Location Reason(s) For Visit Diagnoses Date Provider Providers Copied on Encounter [facility], [address], [place], [place], [address], [place] tel:[phone] [facility] No Information 3 Anna Otto. [address], [place], [address], [place]. tel:[phone] Family History Family Member Type Diagnosis Age At Onset No Information Payers Payer name Insurance type Covered alliance party ID Authoriza tion(s) [place] [id number] Social History Type Description Quantity Date Captured [...]
--- OUTSIDE RECORDS SUMMARY | 2025-01-03 13:20 | XMS_ITS | Clinical Summary ---
Author Organization [facility] Address [address] [place] [address] Care Team Providers Care Microstrategy Reports Developer Name Role Phone Unavailable Primary Care Provider Unavailabl e Allergies Active Allergy Reactions Criticality Noted Date Comments Adhesive Unknown Low Amoxicillin Rash Medium Ciprocinonide Hives Medium 09/29/2009 Iodinated Contrast Media Rash Medium 06/28/2007 Tetanus Toxoid Swelling Medium Medications vitamin E (AQUASOL E) 400 unit capsule daily. 8 Active aspirin 81 mg tablet daily. 7 Active uudvtzad-cdl-QE -lycopen-lutein 0.4-300-250 mg-mcg-mcg tabletIndicatio ns:Vitamin Deficiency Prevention daily. Active omega 9-ftp-gml-fish oil 100-160-1,000 mg capsule daily. Active tamsulosin [...] mg total) by mouth daily Active C,E,zinc,copper 10-pjmbv6r-gdr (Ocuvite Adult 50 Plus) 250-5-1 mg capsule [...] Encounters Date Type Department Care Team Description 01/03/2025 Telephone [facility] Cardiology [address] [place] [address] Medicine 8th [place] [address] [place] [address] Cayla Vazquez MD Additional Services Or Orders 01/03/2025 Telephone [facility] Cardiology [address] [place] [address] Medicine 8th [place] [address] [place] [address] Cayla Vazquez MD Lab Orders 12/18/2024 Results Follow-Up Cardiology Cayla Vazquez MD Coronary artery disease involving [place] coronary artery of [place] heart without angina pectoris (Primary Dx); Shortness of breath 12/17/2024 3:51 PM SECRETARY BOOK KEEPER - 12/17/2024 11:59 PM SECRETARY BOOK KEEPER Hospital Encounter [facility] Cardiac Diagnostic Lab [address] [place] [address] Coronary artery disease involving [place] coronary artery of [place] heart without angina pectoris Discharge Disposition: Discharge to home or self care 11/21/2024 4:15 PM SECRETARY BOOK KEEPER Office Visit [facility] Cardiology [address] [facility] 8th [place] [address] [place] [address] Cayla Vazquez MD Chest pain, unspecified type (Primary Dx); Coronary artery disease involving [place] coronary artery of [place] heart without angina pectoris from Last 3 Months Immunizations Immunization Administration Dates Next Due Influenza, Quadrivalent, Rec ombinant, Egg Free, Preservative Free, Intramuscular 07/25/2019 Influenza, Trivalent, High D ose, Split, Preservative Free, Intramuscular 07/11/2018 Surgical History Surgery Date Site/Laterality Comments CA CORONARY ARTERY BYPASS 1 CORONARY VENOUS GRAFT CABG - x 3 (Added by TW Conv) CA ARTHRP ACETBLR/PROX FEM P ROSTC AGRFT/ALGRFT Total Hip Replacement - 11/22 (Added by TW Conv) CA TRURL ELECTROSURG RESCJ PROSTATE BLEED COMPLETE Transurethral Resection Of Prostate (TURP) - (Added by TW Conv) CA CYSTOURETHROSCOPY WITH BIOPSY Cystoscopy With Biopsy - bladder bx 01/23 (-); bladder bx @ OSH 02/19 (-) per [facility] review (Added by TW Conv) CORONARY ARTERY [...] Hip Replacement - (Added by TW Conv) CA NJX AA&/STRD TFRML EPI LUMBAR/SACRAL 1 LEVEL Corticosteroid Inj Transforaminal Approach Lumbar W/ Fluoroscopic Guidance - (Added by TW Conv) CA NJX AA&/STRD TFRML EPI LUMBAR/SACRAL 1 LEVEL Corticosteroid Inj Transforaminal Approach Lumbar W/ Fluoroscopic Guidance - (Added by TW Conv) CA NJX AA&/STRD TFRML EPI LUMBAR/SACRAL 1 LEVEL [...] TW Conv) 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 - (Added by TW Conv) [...] on file Legal Sex Male 9:16 PM SECRETARY BOOK KEEPER Gender Identity Not on file Sexual Orientation Not on file Obstetrics History Last Filed Vital Signs Vital Sign Reading Time Taken Comments Blood Pressure 123/72 11/21/2024 3:59 PM SECRETARY BOOK KEEPER Pulse 80 11/21/2024 3:59 PM SECRETARY BOOK KEEPER Temperature 36.2 C (97.1 F) 05/25/2020 9:30 AM CDT obtained from pt Respiratory Rate - - Oxygen Saturation 95% 11/21/2024 3:5 9 PM SECRETARY BOOK KEEPER Inhaled Oxygen Concentration - - Weight 81.6 kg (180 lb) 11/21/2024 3:59 PM SECRETARY BOOK KEEPER Height 170.2 cm (5' 7 ) 11/21/2024 3:59 PM SECRETARY BOOK KEEPER Body Mass Index 28.19 11/21/2024 3:59 PM SECRETARY BOOK KEEPER Plan of Treatment Health Maintenance Due Date [...] DOPPLER/CF W CONTRAST Routine 12/17/2024 5:07 PM SECRETARY BOOK KEEPER Coronary artery disease involving [place] coronary artery of [place] heart without angina pectoris ECG 12-LEAD Routine 11/21/2024 4:46 PM SECRETARY BOOK KEEPER Chest pain, unspecified type from Last 3 Months Results * TRANSTHORACIC ECHO (TTE) COMPLETE W DOPPLER/CF W CONTRAST (12/17/2024 5:07 PM SECRETARY BOOK KEEPER) Anatomical Region Laterality Modality Ultrasound 12/17/2024 4:16 PM SECRETARY BOOK KEEPER Narrative 12/18/2024 9:38 AM SECRETARY BOOK KEEPER [facility] [place] [address] Transthoracic Echocardiographic Report Patient Name: MILAGROS MARTÍNEZ A : 1935 (89y 6m) Gender: M Study Date: 12/17/2024 04:16:46 PM Ht(Inch): 67 Wt(Lb): 179.9 BSA: 1.96 Caustic Room Operator: Zoe Bansal Location: [facility] Order Provider: CAYLA VAZQUEZ Heart Rate: 74 BMI: 28.17 BP: 126 / 85 Quality: Technically difficult study Ref Provider: CAYLA VAZQUEZ PROCEDURES: Echocardiographic Report: ([id number]) Transthoracic complete echo with contrast, 2D, spectral [...] and. INDICATIONS: I25.10 Atherosclerotic heart disease of [place] coronary artery without angina pectoris. FINDINGS: Left [...] By: Domingo Perales MD 12/18/2024 9:37:44 AM SECRETARY BOOK KEEPER Electronically Signed By: Domingo Perales MD 12/18/2024 9:37:44 AM SECRETARY BOOK KEEPER CC: Cayla Vazquez MD Procedure Note Domingo Perales MD - 12/18/2024 [facility] [place] [address] Transthoracic Echocardiographic Report Patient Name: MILAGROS MARTÍNEZ A : 1935 (89y 6m) Gender: M Study Date: 12/17/2024 04:16:46 PM Ht(Inch): 67 Wt(Lb): 179.9 BSA: 1.96 Caustic Room Operator: Zoe Bansal Location: [facility] Order Provider:CAYLA VAZQUEZ Heart Rate: 74 BMI: 28.17 BP: 126 / 85 Quality: Technically difficultstudy Ref Provider: CAYLA VAZQUEZ PROCEDURES: Echocardiographic Report: ([id number]) Transthoracic complete echo withcontrast, 2D, spectral and tissue Doppler, color flow Doppler, M-mode. Contrast: Contrast Enhancement was Employed: After initial imaging due tosub- optimal quality related to co-morbidity defined by patient's body habitus, usedPerflutren contrast because 2 of 16 LV wall segments in any view not visualized,using the volume necessary to obtain adequate images and. INDICATIONS: I25.10 Atherosclerotic heart disease of [place] coronary artery withoutangina pectoris. FINDINGS: Left Ventricle: [...] [ 1.71 - 5.00 ] MV Decel Etct301.21 msec [ 104.00 - 258.00 ] AoR [...] By: Domingo Perales MD 12/18/2024 9:37:44 AM SECRETARY BOOK KEEPER Electronically Signed By: Domingo Perales MD 12/18/2024 9:37:44 AM SECRETARY BOOK KEEPER CC: Cayla Vazquez MD Cayla Vazquez MD CV ECHO PROCEDURES Final Resu lt * ECG 12 lead (11/21/2024 4:46 PM SECRETARY BOOK KEEPER) us Cayla Vazquez MD ECG ORDERABLES Edited Result - Final from Last 3 Months Insurance MEDICARE [facility] MEDICARE SUPPLEMENT [facility]IC[facility] MEDICARE SUPPLEMENT [facility] Care Teams Microstrategy Reports Developer Relationship Specialty Start Date End Date Joanie Rosario 12/20/24
--- OUTSIDE RECORDS SUMMARY | 2025-01-03 13:20 | XMS_ITS | Clinical Summary ---
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
--- OUTSIDE RECORDS SUMMARY | 2025-01-03 13:20 | XMS_ITS ---
Author Organization [facility] Address [address] [facility] [address] [place], [place] [phone] Care Team Providers Care Information Security Manager Name Role Phone JUDIHT MCDONALD Unavailable [phone] Vernace, Joanie Unavailable Unavailable Allergies Allergen (clinical drug ingredient) Drug/Non Drug Allergy documented on EMR Reaction Allergy Type Onset Date Status Iodine Unknown Drug Allergy 12/30/2022 active REASON FOR VISIT *General care Encounters Encounter Location Date Provider Diagnosis [facility] [place] [address] [place], [place] [phone] 09/19/2024 JUDITH ESTEFANI Onychomycosis B35.1 ; Pain in right toe(s) M79.674 ; Pain in left toe(s) M79.675 and Unspecified atherosclerosis of [place] arteries of extremities, bilateral legs I70.203 Assessments Encounter Date Diagnosis (ICD Code) Assessment Notes Treatment Notes Treatment Clinical Notes Section Notes 09/19/2024 Onychomycosis (ICD-10 - B35.1) 09/19/2024 Pain in right toe(s) (ICD-10 - M79.674) 09/19/2024 Pain in left toe(s) (ICD-10 - M79.675) 09/19/2024 Unspecified atherosclerosis of [place] arteries of extremities, bilateral legs (ICD-10 - [...] BYNUMG, 01/09/2025 01:20:00 PM, [address], [facility], [place], [place], [phone], Progress Notes * MILAGROS MARTÍNEZ SRDOB: [birth year] (89 yo M)Acc No.[id number]:09/19/2024 Patient: Aston SABINOINOCENCIOMILAGROS SR Provider: Whit Mcdonald DPM :1935 A ge:89 Y S ex:Male Date:09/19/2024 Address:[address] [place] [address] Subjective: * Chief Complaints: * * General [...] M79.675 4 . U nspecified atherosclerosis of [place] arteries of extremities, bilateral legs - I70.203 Plan: * Treatment: * Procedure Codes: 1 1721 DEBRIDE NAIL, 6 OR MORE, Modifiers: Q8 * Follow Up: 9 weeks * Billing Information: * Visit Code: * Procedure Codes: 74109 DEBRIDE NAIL, 6 OR MORE. Modifiers: Q8 * CARE MANAGER Sign off status: Completed true * Provider: Whit Mcdonald DPM Date: 11/20/2023 Generated for Donya zhang/Brandyn/Giorgi on: 0 01/03/2025 11:13 AM CDT History and Physical Notes * [...]
--- OUTSIDE RECORDS SUMMARY | 2025-01-03 13:20 | XMS_ITS | Patient Health Record ---
Author Organization [facility] Address [address] [place], [place] [phone] Care Team Providers Care Ship Engines Operating Engineer Name Role Phone ABDIRAHMANJUDITH CABA Unavailable [phone] Vernace Joanie Unavailable Unavailable Allergies Allergen (clinical [...] Provider Diagnosis [facility] [place] [place] [phone] 01/05/2024 JUDITH JARA Onychomycosis B35.1 ; Pain in right toe(s) M79.674 ; Pain in left toe(s) M79.675 and Unspecified atherosclerosis of [place] arteries of extremities, bilateral legs I70.203 [facility] [place] [address] [place] [phone] 05/09/2024 JUDITH JARA Onychomycosis B35.1 ; Pain in right toe(s) M79.674 ; Pain in left toe(s) M79.675 and Unspecified atherosclerosis of [place] arteries of extremities, bilateral legs I70.203 [facility] [address] [place] [phone] 09/19/2024 JUDITH SERRATANJA Onychomycosis B35.1 ; Pain in right toe(s) M79.674 ; Pain in left toe(s) M79.675 and Unspecified atherosclerosis of [place] arteries of extremities, bilateral legs I70.203 Assessments [...] (ICD-10 - M79.675) 09/19/2024 Unspecified atherosclerosis of [place] arteries of extremities, bilateral legs (ICD-10 - I70.203) 05/09/2024 Unspecified atherosclerosis of [place] arteries of extremities, bilateral legs (ICD-10 - I70.203) 01/05/2024 Unspecified atherosclerosis of [place] arteries of extremities, bilateral legs (ICD-10 - [...] Details Provider Name:JUDITH AGRAWAL, 01/09/2025 01:20:00 PM, [address], [facility], [place], [place], [phone], Insurance Providers Payer Name Payer Address Payer Phone Subscriber Number Group Number Insured Name Patient Relationship to Insured Coverage Start Date Coverage End Date Medicare Part B [place] [address] [place] [phone] [id number] MILAGROS MARTÍNEZ Self - patient is the insured BCBS Medicare Advantage Plans [address] [place] [address] [id number] MILAGROS MARTÍNEZ Self - patient is the insured Medical (General) History Medical History History ICD Code Diabetic
--- OUTSIDE RECORDS SUMMARY | 2025-01-03 13:20 | XMS_ITS ---
Author Organization [facility] Address [address] [facility] [address] [place], [place] [phone] Care Team Providers Care Water Valve Mechanic Name Role Phone JUDITH MCDONALD Unavailable [phone] Vernace, Joanie Unavailable Unavailable Allergies Allergen (clinical drug ingredient) Drug/Non Drug Allergy documented on EMR Reaction Allergy Type Onset Date Status Iodine Unknown Drug Allergy 12/30/2022 active REASON FOR VISIT *General care Vital Signs Height 67.00 in 05/09/2024 Weight 201 lbs 05/09/2024 BMI 31.48 kg/m2 05/09/2024 Height-cm 170.18 cm 05/09/2024 Weight-kg 91.17 kg 05/09/2024 Encounters Encounter Location Date Provider Diagnosis [facility] [place] [address] [place], [place] [phone] 05/09/2024 JUDITH MCDONALD Onychomycosis B35.1 ; Pain in right toe(s) M79.674 ; Pain in left toe(s) M79.675 and Unspecified atherosclerosis of [place] arteries of extremities, bilateral legs I70.203 Assessments Encounter Date Diagnosis (ICD Code) Assessment Notes Treatment Notes Treatment Clinical Notes Section Notes 05/09/2024 Onychomycosis (ICD-10 - B35.1) 05/09/2024 Pain in right toe(s) (ICD-10 - M79.674) 05/09/2024 Pain in left toe(s) (ICD-10 - M79.675) 05/09/2024 Unspecified atherosclerosis of [place] arteries of extremities, bilateral legs (ICD-10 - [...] AGRAWAL, 01/09/2025 01:20:00 PM, [address], [address], [phone], Progress Notes * MILAGROS MARTÍNEZ SRDOB: (88 yo M)Acc No.[id number]:05/09/2024 Patient: MILAGROS PELAEZ SR Provider: Whit Mcdonald DPM :1935 A ge:88 Y S ex:Male Date:05/09/2024 Address:[address] [place] [address] Subjective: * Chief Complaints: * 1 . [...] M79.675 4 . U nspecified atherosclerosis of [place] arteries of extremities, bilateral legs - I70.203 Plan: * Treatment: * Procedure Codes: 1 1721 DEBRIDE NAIL, 6 OR MORE, Modifiers: Q8 * Follow Up: 9 weeks * Billing Information: * Visit Code: * Procedure Codes: 02236 DEBRIDE NAIL, 6 OR MORE. Modifiers: Q8 * Sign off status: Completed true * Provider: Whit Mcdonald DPM Date: 0 05/09/2024 Generated for Donya zhang/Brandyn/Giorgi on: 0 01/03/2025 01:20 PM CDT History and Physical Notes * HPI [...]
--- OUTSIDE RECORDS SUMMARY | 2025-01-03 13:20 | XMS_ITS | Continuity of Care Document ---
Author Organization [facility] Address [address] [place] [address] Phone Care Team Providers Care Helpdesk Administrator Name Role Phone [facility] Unavailable Unavailable Advance Directives Directive Yes / No Effective Date File Name No Information Encounters Encounter Description Practice Location Reason(s) For Visit Diagnoses Date Provider Providers Copied on Encounter [facility], [address], [place], [place], [id number], [place] tel:[phone] [facility] No Information 0 [facility]. [address] [facility], [address], [place], [place], [id number] , [place]. tel:[phone] Family History Family Member Type Diagnosis Age At Onset No Information Payers Payer name Insurance type Covered libertarian ID Authoriza tion(s) No Information Social History [...]
--- OUTSIDE RECORDS SUMMARY | 2025-01-03 13:20 | XMS_ITS | Data Portability ---
Author Organization [facility], Main Office Address [address] [place] [address] Care Team Providers Care Tie Binder Name Role Phone SARAH DING Primary Care Provider SARAH IDNG Referring Provider [phone] Assessment Encounter Date Assessment Date Assessment LastModified by Organization Details LastModified Time 04/03/2023 04/03/2023 HPI: 87-year-old male who came in today for a cortisone injection into the left knee. He a shot 3 months ago at [facility]. He was being evaluated for his hip revision after a fall. Fortunately he did have any complications of his hip revision. He had quite a bit of soreness in the knee and the give him an injection 3 months ago. It helped for about month. Takes Tylenol and hlsc-nfh-uwhzudw naproxen on a regular basis and this [...] patient more than half of this in tchh-gl-crzz conversation leonie Not available 04/03/2023 15:31:27 07/03/2023 [...] DO Not Attach Compendium, Do Not Delete/merge, [id number] 4 17:08:44 injection/a spiration joint/bursa (PROC) - in office procedure, administere d by provider 2022 023 [email or web address] In-Office Order, Internal Use Only DO Not Attach Compendium DO Not Attach Compendium, Do Not Delete/merge, [id number] 3 14:06:16 injection/a spiration joint/bursa (PROC) - in office procedure, administere d by provider 2022 023 [email or web address] In-Office Order, Internal Use Only DO Not Attach Compendium DO Not Attach Compendium, Do Not Delete/merge, [id number] 3 14:12:13 injection/a spiration joint/bursa (PROC) - in office procedure, administere d by provider 2022 023 [email or web address] In-Office Order, Internal Use Only DO Not Attach Compendium DO Not Attach Compendium, Do Not Delete/merge, [id number] 3 15:23:39 Surgeries None recorded. Imaging XR, knee 2022 023 [email or web address] [facility] [place], [address], [place], [address], 3 16:34:37 Medication Orders Kenalog 10 mg/mL suspension for injection [address] [facility], [address], [place], [place], [id number], 4 17:08:44 bupivacaine (PF) 0.25 % (2.5 mg/mL) injection solution [email or web address] [facility]998, [address], [place], [place], [id number], 4 17:08:44 Kenalog 10 mg/mL suspension for injection [address] [facility]34232, [address], [place], [place], [id number], 3 18:47:21 ropivacaine (PF) 5 mg/mL (0.5 %) injection solution [address] [facility]50631, [address], [place], [place], [id number], 3 18:47:21 Kenalog 10 mg/mL suspension for injection [address] [facility]39842, [address], [place], [place], [id number], 3 19:03:03 ropivacaine (PF) 5 mg/mL (0.5 %) injection solution [email or web address] [facility] #72803, [address], [place], [place], [id number], 3 14:04:44 Kenalog 10 mg/mL suspension for injection [address] [facility]89727, [address], [place], [place], [id number], 3 16:34:37 ropivacaine (PF) 5 mg/mL (0.5 %) injection solution [address] [facility] #92155, [address], [place], [place], [id number], 3 14:04:44 Patient TargetsNo targets recorded. Patient InstructionsNo instructions recorded. Reason for Referral None Reported. Results Created Date Observation Date Name Description Value Unit Range Abnormal Flag Note LastModifiedBy Organization Detail LastModifiedTime 04/03/20 23 XR, knee No observ ation record ed. [email or web address] [facility] [place] [address], [place], [address], 04/03/2023 15:28:30 Result Notes None recorded. Problems Name Problem SNOMED Code Status Onset Date Resolution Date Notes Provider Name and Address Organization Details Recorded Time Acquired trigger finger 8370420 Active Not Available [facility] 3 13:13:10 Low back pain 826795492 Active Not Available [facility] 3 13:13:10 Enthesopat hy of hip region 14406595 Active Not Available [facility] 3 13:13:10 Inflammato ry disorder of extremity 085447732 Active Not Available [facility] 3 13:13:10 Osteoarthr itis 591945110 Active Not Available [facility] 3 13:13:10 Hip pain 62905652 Active Not Available [facility] 3 13:13:10 Pain of right knee joint 0946937552297 00 Active 2022 KENDRA Payne [employer] [facility] [employer] [facility] 3 14:32:59 Osteoarthr itis of left knee joint 5138898041643 09 Active 2022 KENDRA Payne, [employer] [facility] [employer] [facility] 3 14:11:10 Problem Notes None recorded. Procedures Surgical History Date Name Laterality Status Provider Name and Address Organization Details Recorded Time procedure on wrist completed KENDRA Payne [facility] [employer] [facility] 04/03/2023 14:41:30 Hip surgery completed KENDRA Payne [facility] [employer] [facility] 04/03/2023 14:41:36 Knee Surgery completed KENDRA Payne [facility] [employer] [facility] 04/03/2023 14:41:43 Imaging Results Imaging Date Name Status LastModified by Organiz ation Details LastModified Time 04/03/2023 XR, knee completed [email or web address] [facility] [place] [address], [place], [address], 04/03/2023 15:28:30 Procedure Notes None recorded. Medical [...] Updated DateTime 04/03/2023 152.4 cm 37.5 kg/m2 63681.74 g KENDRA Payne [employer] [facility] 04/03/2023 14:57:22 Date Recorded Body height Provider Name an d Address Organization Details Last Updated DateTime 07/03/2023 152.4 cm KENDRA Payne [facility] [employer] [facility] 07/03/2023 14:10:43 Date Recorded Body height Provider Name an d Address Organization Details Last Updated DateTime 10/02/2023 152.4 cm KENDRA Payne [facility] 10/02/2023 14:04:22 Date Recorded Body height Provider Name an d Address Organization Details Last Updated DateTime 01/01/2024 152.4 cm Miranda Martinez [facility] 01/01/2024 14:11:55 Social History Question Answer Notes LastModified by Organizat ion Details LastModified Time Tobacco Smoking Status Never Smoker KENDRA Payne null, [facility] 04/03/2023 14:41:21 What Is Your Level Of Alcohol Consumption? None [email or web address] Information not available 04/03/2023 Sex: Unknown Functional Status None recorded. Mental Status None recorded. Family History Relationship Description Onset Age of this Age Resolved Age Notes LastModified by Organization Details LastModified Time Sister Hypertensive disorder Not available 2022 14:40:43 Sister Diabetes mellitus Not available 2022 14:41:09 Brother Diabetes mellitus [email or web address] Not available 2022 14:41:08 Mother Diabetes mellitus [email or web address] Not available 2022 14:41:09 Medical History Condition Response ARTHRITIS Y DIABETES, TYPE Y HYPERTENSION Y Past Encounters Encounter ID Performer Location Encounter Start Date Encounter Closed Date Diagnosis/Indication Diagnosis SNOMED-CT Code Diagnosis ICD10 Code Diagnosis Note [id number] RICCARDO Ceron [facility] [place] [address] [place] [address] 04/03/2023 14:04:49 04/03/2023 15:37:19 Pain of right knee joint 2228081747 11304 M25.404 [id number] RICCARDO Ceron [facility] [place] [address] [place] [address] 07/03/2023 14:01:05 07/03/2023 14:27:56 Osteoarthritis of left knee joint 4800794445 74629 M17.12 [id number] RICCARDO Ceron [facility] [place] [address] [place] [address] 10/02/2023 14:01:36 10/02/2023 14:43:29 Osteoarthritis of left knee joint 1996220957 03221 M17.12 [id number] RICCARDO Ceron [facility] [place] [address] [place] [address] 01/01/2024 14:05:45 01/01/2024 16:48:48 Osteoarthritis of left knee joint 2034591329 74948 M17.12 Health Concerns Section Related Observation LastModified by Organization Detai ls LastModified Time None Recorded Concern Status LastModified by Organization Details LastModified Time None Recorded Advance Directives Directive None Recorded Payers Encounter Date Sequence Insurance Name Policy Number Policy Mas Covered Member ID Mas Member ID Guarantor Name 04/03/2023 1 [place] Romie A Antony Sr [id number] Romie A Antony 04/03/2023 2 [place] [id number] Romie A Antony Sr [id number] Romie A Antony 07/03/2023 1 [place] Romie A Antony Sr [id number] Romie A Antony 07/03/2023 2 [place] [id number] Romie A Antony Sr [id number] Romie A Antony 10/02/2023 1 [place] Romie A Antony Sr [id number] Romie A Antony 10/02/2023 2 [place] [id number] Romie A Antony Sr [id number] Romie A Antony 01/01/2024 1 [place] Romie A Antony Sr [id number] Romie A Antony 01/01/2024 2 [place] [id number] Romie A Antony Sr [id number] Romie A Antony
--- OUTSIDE RECORDS SUMMARY | 2025-01-03 13:20 | XMS_ITS | Referral Summary ---
Author Organization [facility] Address [address] [place] [address] Care Team Providers Care Game Designer/Creative Director Name Role Phone Unavailable Primary Care Provider Unavailabl e Encounters Date Type Department Care Team Description 01/03/2025 Telephone [facility] Cardiology [address] [place] [phone] Cayla Vazquez MD Additional Services Or Orders 01/03/[address] [address] Cayla Vazquez MD Lab Orders 12/18/2024 Results Follow-Up Cardiology Cayla Vazquez MD Coronary artery disease involving [place] coronary artery of [place] heart without angina pectoris (Primary Dx); Shortness of breath 12/17/2024 3:51 PM DIVISION SALES MANAGER - 12/17/2024 11:59 PM DIVISION SALES MANAGER Hospital Encounter [facility] Cardiac Diagnostic Lab [address] [place] [phone] Coronary artery disease involving [place] coronary artery of [place] heart without angina pectoris Discharge Disposition: Discharge to home or self care 11/21/2024 4:15 PM DIVISION SALES MANAGER Office Visit [facility] Cardiology [address] [place] [phone] Cayla Vazquez MD Chest pain, unspecified type (Primary Dx); Coronary artery disease involving [place] coronary artery of [place] heart without angina pectoris from Last 3 Months Allergies Active Allergy Reactions Criticality Noted Date Comments Adhesive Unknown Low Amoxicillin Rash Medium Ciprocinonide Hives Medium 09/29/2009 Iodinated Contrast Media Rash Medium 06/28/2007 Tetanus Toxoid Swelling Medium Medications vitamin E (AQUASOL E) 400 unit capsule daily. 8 Active aspirin 81 mg tablet daily. 7 Active tugdrvpv-chy-ST -lycopen-lutein 0.4-300-250 mg-mcg-mcg tabletIndicatio ns:Vitamin Deficiency Prevention daily. Active omega 5-dbc-nkd-fish oil 100-160-1,000 mg capsule daily. Active tamsulosin [...] mg total) by mouth daily Active C,E,zinc,copper 94-kwxmp7w-bgy (Ocuvite Adult 50 Plus) 250-5-1 mg capsule [...] on file Legal Sex Male 9:16 PM DIVISION SALES MANAGER Gender Identity Not on file Sexual Orientation Not on file Last Filed Vital Signs Vital Sign Reading Time Taken Comments Blood Pressure 123/72 11/21/2024 3:59 PM DIVISION SALES MANAGER Pulse 80 11/21/2024 3:59 PM DIVISION SALES MANAGER Temperature 36.2 C (97.1 F) 05/25/2020 9:30 AM CDT obtained from pt Respiratory Rate - - Oxygen Saturation 95% 11/21/2024 3:5 9 PM DIVISION SALES MANAGER Inhaled Oxygen Concentration - - Weight 81.6 kg (180 lb) 11/21/2024 3:59 PM DIVISION SALES MANAGER Height 170.2 cm (5' 7 ) 11/21/2024 3:59 PM DIVISION SALES MANAGER Body Mass Index 28.19 11/21/2024 3:59 PM DIVISION SALES MANAGER Plan of Treatment Not on file Procedures Procedure Name Priority Date/Time Associated Diagnosis Comments TRANSTHORACIC ECHO (TTE) COMPLETE W DOPPLER/CF W CONTRAST Routine 12/17/2024 5:07 PM DIVISION SALES MANAGER Coronary artery disease involving [place] coronary artery of [place] heart without angina pectoris ECG 12-LEAD Routine 11/21/2024 4:46 PM DIVISION SALES MANAGER Chest pain, unspecified type from Last 3 Months Results * TRANSTHORACIC ECHO (TTE) COMPLETE W DOPPLER/CF W CONTRAST (12/17/2024 5:07 PM DIVISION SALES MANAGER) Anatomical Region Laterality Modality Ultrasound 12/17/2024 4:16 PM DIVISION SALES MANAGER Narrative 12/18/2024 9:38 AM DIVISION SALES MANAGER [facility] Cardiac [place] [address] [place] [address] Transthoracic Echocardiographic Report Patient Name: MILAGROS MARTÍNEZ A : 1935 (89y 6m) Gender: M Study Date: 12/17/2024 04:16:46 PM Ht(Inch): 67 Wt(Lb): 179.9 BSA: 1.96 Dive Master: Zoe Bansal Location: [facility] Order Provider: CAYLA VAZQUEZ Heart Rate: 74 BMI: 28.17 BP: 126 / 85 Quality: Technically difficult study Ref Provider: CAYLA VAZQUEZ PROCEDURES: Echocardiographic Report: ([id number]) Transthoracic complete echo with contrast, 2D, spectral [...] and. INDICATIONS: I25.10 Atherosclerotic heart disease of [place] coronary artery without angina pectoris. FINDINGS: Left [...] By: Domingo Perales MD 12/18/2024 9:37:44 AM DIVISION SALES MANAGER Electronically Signed By: Domingo Perales MD 12/18/2024 9:37:44 AM DIVISION SALES MANAGER CC: Cayla Vazquez MD Procedure Note Domingo Perales MD - 12/18/[address] [facility] [place] [address] [place] [address] Transthoracic Echocardiographic Report Patient Name: MILAGROS MARTÍNEZ Wale : 1935 (89y 6m) Gender: M Study Date: 12/17/2024 04:16:46 PM Ht(Inch): 67 Wt(Lb): 179.9 BSA: 1.96 Dive Master: Zoe Bansal Location: [facility] Order Provider:CAYLA VAZQUEZ Heart Rate: 74 BMI: 28.17 BP: 126 / 85 Quality: Technically difficultstudy Ref Provider: CAYLA VAZQUEZ PROCEDURES: Echocardiographic Report: ([id number]) Transthoracic complete echo withcontrast, 2D, spectral and tissue Doppler, color flow Doppler, M-mode. Contrast: Contrast Enhancement was Employed: After initial imaging due tosub- optimal quality related to co-morbidity defined by patient's body habitus, usedPerflutren contrast because 2 of 16 LV wall segments in any view not visualized,using the volume necessary to obtain adequate images and. INDICATIONS: I25.10 Atherosclerotic heart disease of [place] coronary artery withoutangina pectoris. FINDINGS: Left Ventricle: [...] [ 1.71 - 5.00 ] MV Decel Smgr565.21 msec [ 104.00 - 258.00 ] AoR [...] By: Domingo Perales MD 12/18/2024 9:37:44 AM DIVISION SALES MANAGER Electronically Signed By: Domingo Perales MD 12/18/2024 9:37:44 AM DIVISION SALES MANAGER CC: Cayla Vazquez MD Cayla Vazquez MD CV ECHO PROCEDURES Final Resu lt * ECG 12 lead (11/21/2024 4:46 PM DIVISION SALES MANAGER) us Cayla Vazquez MD ECG ORDERABLES Edited Result - Final from Last 3 Months Insurance MEDICARE [facility] BLUE CROSS MEDICARE SUPPLEMENT MEDICARE BLUE [employer]OSS MEDICARE SUPPLEMENT [facility] Care Teams Game Designer/Creative Director Relationship Specialty Start Date End Date Joanie Rosario 12/20/24
--- OUTSIDE RECORDS SUMMARY | 2025-01-03 13:21 | XMS_ITS ---
Author Organization [facility] Address [address] [place], [place] [id number] Care Team Providers Care Customer Care Specialist Name Role Phone ESTEFANI JUDITH Unavailable [phone] Vernace, Joanie Unavailable Unavailable REASON FOR VISIT *General care Encounters Encounter Location Date Provider Diagnosis [facility] [address] [place], [place] [phone] 07/11/2024 JUDITH MCDONALD Plan Of Treatment Next Appt Details Provider Name:JUDITH AGRAWAL, 01/09/2025 01:20:00 PM, [address], [place], [place], [phone], Progress Notes * MILAGROS MARTÍNEZ SRDOB: (89 yo M)Acc No.[id number]:07/11/2024 Patient: MILAGROS PELAEZ SR Provider: Whit Mcdonald DPM :1935 A ge:89 Y S ex:Male Date:07/11/2024 Address:[address] [place], [place] [phone] Subjective: * Chief Complaints: * 1 . *General care. * Medical History: Objective: * Vitals: Assessment: Plan: * Treatment: * Billing Information: * Visit Code: * Procedure Codes: * Electronic signature of JUDITH MCDONALD DPM on 01/03/2025 at 01:20 PM CDT Sign off status: Pending * Provider: Whit Mcdonald DPM Date: 0 07/11/2024 Generated for Donya zhang/Brandyn/Giorgi on: 0 01/03/2025 01:20 PM CDT
--- OUTSIDE RECORDS SUMMARY | 2025-01-03 13:21 | XMS_ITS | Encounter Summary ---
Author Organization [facility] Address [address] [place] [address] Phone Care Team Providers Care Hplc Chemist Name Role Phone Unavailable Primary Care Provider Unavailabl e Reason for Visit * Reason Onset Date Comments Additional Services Or Orders 01/03/2025 Encounter Details Date Type Department Care Team (Late st Contact Info) Description 01/03/2025 Telephone [facility] Cardiology [address]th [place] [address] [place] [phone] Adán [place] MD [address] [place] [address] Additional Services Or Orders Social History Tobacco Use Types Packs/Day Years Used Date Smoking Tobacco: Former Smokeless Tobacco: Never Sex and Gender Information Value Date Recorded Sex Assigned at Not on file 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 * Telephone Encounter - Yarelis Martinez - 01/03/2025 12:25 PM CDT Joshua Franco is calling in regards to getting lab orders sent over to them. Patient is currently there. documented in this encounter Plan of Treatment Not on file documented as of this encounter Visit Diagnoses Not on filedocumented in this encounter Care Teams Hplc Chemist Relationship Specialty Start Date End Date Joanie Rosario 12/20/24 documented as of this encounter
--- OUTSIDE RECORDS SUMMARY | 2025-01-03 13:21 | XMS_ITS | Encounter Summary ---
Author Organization [facility] Address [address] [place] [address] Phone Care Team Providers Care Compensation Consulting Manager Name Role Phone Unavailable Primary Care Provider Unavailabl e Reason for Visit * Reason Onset Date Comments Lab Orders 01/03/2025 Encounter Details Date Type Department Care Team (Late st Contact Info) Description 01/03/2025 Telephone [facility] Cardiology [address] [facility] Advanced Medicine 8th [place] [address] [place] [phone] Adán Lewis MD [address] [facility] [address] [place] [address] Lab Orders Social History Tobacco Use Types Packs/Day Years Used Date Smoking Tobacco: Former Smokeless Tobacco: Never Sex and Gender Information Value Date Recorded Sex Assigned at Not on file 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 She would like the lab orders to be faxed to [facility] on [address] Orders faxed to [phone] * Telephone Encounter - Jerri Adkins - 01/03/2025 8:53 AM CDT Joshua Pt's spouse calling to speak with a nurse in regards to seeing if the lab work results were received. documented in this encounter Plan of Treatment Not on file documented as of this encounter Visit Diagnoses Not on filedocumented in this encounter Care Teams Compensation Consulting Manager Relationship Specialty Start Date End Date Joanie Rosario 12/20/24 documented as of this encounter
[2025-01-03 13:54] LABS: Anion Gap 6 mmol/L (4-12); Blood Urea Nitrogen 20 mg/dL (9-20); Calcium 9.4 mg/dL (8.4-10.2); Carbon Dioxide 32 mmol/L (22-30); Chloride 102 mmol/L (98-107); Estimated Glomerular Filt Rate > 60; Glucose 135 mg/dL (65-110); Potassium 4.2 mmol/L (3.4-5.0); Sodium 140 mmol/L (137-145)
[2025-01-03 14:02] LABS: NT Pro B Type Natriuretic Pept 380 pg/mL (19.9-100)
[2025-01-03 14:21] LABS: Basophils Absolute Auto 0.1 K/mm3 (0.0-0.1); Basophils Percent Auto 0.7 % (0.2-1.2); Eosinophils Absolute Auto 0.3 K/mm3 (0-0.3); Hematocrit 42.2 % (42.0-52.0); Hemoglobin 13.8 g/dL (14.0-18.0); Immature Granulocyte Absolute 0.02 K/mm3 (0.00-0.031); Immature Granulocyte Percent A 0.3 % (0-0.5); Lymphocytes Absolute Auto 1.42 K/mm3 (0.9-3.2); Lymphocytes Percent Auto 20.9 % (18.3-44.2); Mean Corpuscular HGB Conc 32.7 g/dl (32-36); Mean Corpuscular Hemoglobin 30.1 pg (26-34); Mean Corpuscular Volume 91.9 fl (80-100); Mean Platelet Volume 11.1 fl (7.4-10.4); Monocytes Absolute Auto 0.7 K/mm3 (0.1-0.6); Monocytes Percent Auto 10.4 % (2.6-8.5); Neutrophils Absolute Auto 4.3 K/mm3 (1.3-6.7); Neutrophils Percent Auto 62.7 % (45.5-73.1); Platelet Count Result 242 k/mm3 (150-375); Red Blood Count 4.59 M/mm3 (4.6-6.20); White Blood Count 6.8 K/mm3 (4.5-10.0)
== END 2025-01-03 12:43 | disposition home or self-care (01) ==
LOC: ANHGOSHLAB 12:44
PROVIDERS: PCP Family Medicine; Visit Provider Internal Medicine Cardiovascular Disease
DX: R06.02 Shortness of breath (principal)
CPT/HCPCS: 36415; 80048; 83880; 85025

== ENCOUNTER 2025-02-26 09:54 | Outpatient (CLI) | payer MEDICARE, SELFPAY ==
--- OUTSIDE RECORDS SUMMARY | 2025-02-26 10:16 | XMS_ITS | Continuity of Care Document ---
Author Organization [facility] Address [address] [place] [address] Phone Care Team Providers Care Painter Railroad Car Name Role Phone [facility] Unavailable Unavailable Advance Directives Directive Yes / No Effective Date File Name No Information Encounters Encounter Description Practice Location Reason(s) For Visit Diagnoses Date Provider Providers Copied on Encounter [facility] [employer] [facility], [address], [place], [place], [id number], [place] tel:[phone] [facility] No Information 0 [address] [facility]. [address], [place], [place], [id number] , [place]. tel:[phone] Family History Family Member Type Diagnosis Age [...]
--- OUTSIDE RECORDS SUMMARY | 2025-02-26 10:16 | XMS_ITS | Data Portability ---
Author Organization [place] [facility], Main Office Address [address] [place] [address] Care Team Providers Care Parking Lot Supervisor Name Role Phone SARAH DING Primary Care Provider [phone] SARAH DING Referring Provider [phone] Assessment Encounter Date Assessment Date Assessment LastModified by Organization Details LastModified Time 04/03/2023 04/03/2023 HPI: 87-year-old male who came in today for a cortisone injection into the left knee. He a shot 3 months ago at [place]. He was being evaluated for his hip revision after a fall. Fortunately he did have any complications of his hip revision. He had quite a bit of soreness in the knee and the give him an injection 3 months ago. It helped for about month. Takes Tylenol and xkks-qfq-snurggc naproxen on a regular basis and this [...] patient more than half of this in tluq-kn-hqui conversation [email or web address] Not available 04/03/2023 15:31:27 07/03/2023 [...] DO Not Attach Compendium, Do Not Delete/merge, [id number] 4 17:08:44 injection/a spiration joint/bursa (PROC) - in office procedure, administere d by provider 2022 023 [email or web address] In-Office Order, Internal Use Only DO Not Attach Compendium DO Not Attach Compendium, Do Not Delete/merge, [id number] 3 14:06:16 injection/a spiration joint/bursa (PROC) - in office procedure, administere d by provider 2022 023 In-Office Order, Internal Use Only DO Not Attach Compendium DO Not Attach Compendium, Do Not Delete/merge, [id number] 3 14:12:13 injection/a spiration joint/bursa (PROC) - in office procedure, administere d by provider 2022 023 [email or web address] In-Office Order, Internal Use Only DO Not Attach Compendium DO Not Attach Compendium, Do Not Delete/merge, [id number] 3 15:23:39 Surgeries None recorded. Imaging XR, knee 2022 023 [email or web address] [facility] [place], [address], [place], [address], 3 16:34:37 Medication Orders Kenalog 10 mg/mL suspension for injection [address] [facility]24, [address], [place], [place], [id number], 4 17:08:44 bupivacaine (PF) 0.25 % (2.5 mg/mL) injection solution 2023 024 [email or web address] #74901, [address], [place], [place], [id number], 4 17:08:44 Kenalog 10 mg/mL suspension for injection [address] [facility]03789, [address], [place], [place], [id number], 3 18:47:21 ropivacaine (PF) 5 mg/mL (0.5 %) injection solution [address] [facility]58517, [address], [place], [place], [id number], 3 18:47:21 Kenalog 10 mg/mL suspension for injection [address] [facility] #80081, [address], [place], [place], [id number], 3 19:03:03 ropivacaine (PF) 5 mg/mL (0.5 %) injection solution 2022 023 [email or web address] [facility] #64305, [address], [place], [place], [id number], 3 14:04:44 Kenalog 10 mg/mL suspension for injection [address] [facility] #36539, [address], [place], [place], [id number], 3 16:34:37 ropivacaine (PF) 5 mg/mL (0.5 %) injection solution 2022 023 [facility] #38641, [address], [place], [place], [id number], 3 14:04:44 Patient TargetsNo targets recorded. Patient InstructionsNo instructions recorded. Reason for Referral None Reported. Results Created Date Observation Date Name Description Value Unit Range Abnormal Flag Note LastModifiedBy Organization Detail LastModifiedTime 04/03/20 23 XR, knee No observ ation record ed. [email or web address] [facility] [place] [address], [place], [address], 04/03/2023 15:28:30 Result Notes None recorded. Problems Name Problem SNOMED Code Status Onset Date Resolution Date Notes Provider Name and Address Organization Details Recorded Time Acquired trigger finger 1453169 Active Not Available [facility] 3 13:13:10 Low back pain 701589523 Active Not Available [facility] 3 13:13:10 Enthesopat hy of hip region 72232864 Active Not Available [facility] 3 13:13:10 Inflammato ry disorder of extremity 398808755 Active Not Available [facility] 3 13:13:10 Osteoarthr itis 434325493 Active Not Available [facility] 3 13:13:10 Pain of hip region 90857814 Active Not Available [facility] 3 13:13:10 Pain of right knee joint 9611497182764 00 Active 2022 KENDRA Payne [facility] [employer] [facility] 3 14:32:59 Osteoarthr itis of left knee joint 1530114830025 09 Active 2022 KENDRA Payne, [facility] [employer] [facility] 3 14:11:10 Problem Notes None recorded. Procedures Surgical History Date Name Laterality Status Provider Name and Address Organization Details Recorded Time procedure on wrist completed KENDRA Payne - [facility] [employer] [facility] 04/03/2023 14:41:30 Hip surgery completed KENDRA Payne [facility] [employer] [facility] 04/03/2023 14:41:36 Knee Surgery completed KENDRA Payne [facility] [employer] [facility] 04/03/2023 14:41:43 Imaging Results Imaging Date Name Status LastModified by Organiz ation Details LastModified Time 04/03/2023 XR, knee completed [email or web address] [facility] [place] [address], [place], [address], 04/03/2023 15:28:30 Procedure Notes None recorded. Medical [...] Updated DateTime 04/03/2023 152.4 cm 37.5 kg/m2 40007.74 g KENDRA Payne [employer] [facility] 04/03/2023 14:57:22 Date Recorded Body height Provider Name an d Address Organization Details Last Updated DateTime 07/03/2023 152.4 cm KENDRA Payne [employer] [facility] 07/03/2023 14:10:43 Date Recorded Body height Provider Name an d Address Organization Details Last Updated DateTime 10/02/2023 152.4 cm KENDRA Payne [place] [facility] 10/02/2023 14:04:22 Date Recorded Body height Provider Name an d Address Organization Details Last Updated DateTime 01/01/2024 152.4 cm Miranda Martinez [facility] 01/01/2024 14:11:55 Social History None recorded. Functional Status Question Answer Note LastModified by Organization D etails LastModified Time What is your level of alcohol consumption? None [email or web address] Information not available 04/03/2023 Mental Status None recorded. Family History Relationship Description Onset Age of this Age Resolved Age Notes LastModified by Organization Details LastModified Time Sister Hypertensive disorder [email or web address] Not available 2022 14:40:43 Sister Diabetes mellitus [email or web address] Not available 2022 14:41:09 Brother Diabetes mellitus [email or web address] Not available 2022 14:41:08 Mother Diabetes mellitus [email or web address] Not available 2022 14:41:09 Medical History Condition Response ARTHRITIS Y DIABETES, TYPE Y HYPERTENSION Y Past Encounters Encounter ID Performer Location Encounter Start Date Encounter Closed Date Diagnosis/Indication Diagnosis SNOMED-CT Code Diagnosis ICD10 Code Diagnosis Note [id number] Otto Rodriguez MD [facility] [place] [address] [place] [address] 04/03/2023 14:04:49 04/03/2023 15:37:19 Pain of right knee joint 6707836685 02327 M25.083 [id number] Otto Rodriguez MD [facility] [place] [address] [place] [address] 07/03/2023 14:01:05 07/03/2023 14:27:56 Osteoarthritis of left knee joint 5203514085 56997 M17.12 [id number] Otto Rodriguez MD [facility] [place] [address] [place] [address] 10/02/2023 14:01:36 10/02/2023 14:43:29 Osteoarthritis of left knee joint 9382336944 42518 M17.12 [id number] Otto Rodriguez MD [facility] [place] [address] [place] [address] 01/01/2024 14:05:45 01/01/2024 16:48:48 Osteoarthritis of left knee joint 4014493486 37030 M17.12 Health Concerns Section Related Observation LastModified by Organization Detai ls LastModified Time None Recorded Concern Status LastModified by Organization Details LastModified Time None Recorded Advance Directives Directive None Recorded Payers Encounter Date Sequence Insurance Name Policy Number Policy Mas Covered Member ID Mas Member ID Guarantor Name 04/03/2023 1 [place] Romie A Antony Sr [id number] Romie A Antony 04/03/2023 2 [place] [id number] Romie A Antony Sr [id number] Romie A Antony 07/03/2023 1 [place] Romie A Antony Sr [id number] Romie A Antony 07/03/2023 2 [place] [id number] Romie A Antony Sr [id number] Romie A Antony 10/02/2023 1 [place] Romie A Antony Sr [id number] Romie A Antony 10/02/2023 2 [place] [id number] Romie A Antony Sr [id number] Romie A Antony 01/01/2024 1 [place] Romie A Antony Sr [id number] Romie A Antony 01/01/2024 2 [place] [id number] Romie A Antony Sr [id number] Romie A Antony
--- OUTSIDE RECORDS SUMMARY | 2025-02-26 10:16 | XMS_ITS | Referral Summary ---
Author Organization [facility] Address [address] [place] [address] Care Team Providers Care Electrician Sound Name Role Phone Unavailable Primary Care Provider Unavailabl e Encounters Date Type Department Care Team Description 02/21/[address] [facility] [place] [address] Cayla Vazquez MD Lab Reminder 01/15/[address] [facility] [place] [address] Cayla Vazquez MD 01/13/[address] [place] [address] Cayla Vazquez MD Test Results 01/13/[address] [facility] [address] [place] [address] Cayla Vazquez MD Test Results 01/08/[address] [facility] [address] [place] [address] [place] [address] Cayla Vazquez MD Test Results 01/03/2025 Orders Only [facility] Scanning, Provider 01/03/[address] [facility] [address] [place] [address] Cayla Vazquez MD Additional Services Or Orders 01/03/[address] [place] [address] Cayla Vazquez MD Lab Orders 12/18/2024 Results Follow-Up Cardiology Cayla Vazquez MD 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 (Primary Dx); Shortness of breath 12/17/2024 3:51 PM SENIOR PRINCIPAL SOFTWARE ENGINEER - 12/17/2024 11:59 PM SENIOR PRINCIPAL SOFTWARE ENGINEER Hospital Encounter [facility] [address] [facility] [address] [place] [address] 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 Discharge Disposition: Discharge to home or self care from Last 3 Months Allergies Active Allergy Reactions Criticality Noted Date Comments Adhesive Unknown Low Amoxicillin Rash Medium Ciprocinonide Hives Medium 09/29/2009 Iodinated Contrast Media Rash Medium 06/28/2007 Tetanus Toxoid Swelling Medium Medications vitamin E (AQUASOL E) 400 unit capsule daily. 8 Active aspirin 81 mg tablet daily. 7 Active sakkpjww-gxt-UY -lycopen-lutein 0.4-300-250 mg-mcg-mcg tabletIndicatio ns:Vitamin Deficiency Prevention daily. Active omega 2-hdk-bwe-fish oil 100-160-1,000 mg capsule daily. Active tamsulosin [...] mg total) by mouth daily Active C,E,zinc,copper 62-yinlc2u-bvt (Ocuvite Adult 50 Plus) 250-5-1 mg capsule [...] by mouth nightly at bedtime 5 Active empagliflozin (JARDIANCE) 10 mg tablet Take 1 tablet (10 mg total) by mouth daily 30 tablet 11 5 Active Active Problems Problem Noted Date [...] on file Legal Sex Male 9:16 PM SENIOR PRINCIPAL SOFTWARE ENGINEER Gender Identity Not on file Sexual Orientation Not on file Last Filed Vital Signs Vital Sign Reading Time Taken Comments Blood Pressure 123/72 11/21/2024 3:59 PM SENIOR PRINCIPAL SOFTWARE ENGINEER Pulse 80 11/21/2024 3:59 PM SENIOR PRINCIPAL SOFTWARE ENGINEER Temperature 36.2 C (97.1 F) 05/25/2020 9:30 AM CDT obtained from pt Respiratory Rate - - Oxygen Saturation 95% 11/21/2024 3:5 9 PM SENIOR PRINCIPAL SOFTWARE ENGINEER Inhaled Oxygen Concentration - - Weight 81.6 kg (180 lb) 11/21/2024 3:59 PM SENIOR PRINCIPAL SOFTWARE ENGINEER Height 170.2 cm (5' 7 ) 11/21/2024 3:59 PM SENIOR PRINCIPAL SOFTWARE ENGINEER Body Mass Index 28.19 11/21/2024 3:59 PM SENIOR PRINCIPAL SOFTWARE ENGINEER Plan of Treatment Not on file Procedures Procedure Name Priority Date/Time Associated Diagnosis Comments SCAN - LABS 01/03/2025 TRANSTHORACIC ECHO (TTE) COMPLETE W DOPPLER/CF W CONTRAST Routine 12/17/2024 5:07 PM SENIOR PRINCIPAL SOFTWARE ENGINEER 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 from Last 3 Months Results * SCAN - LABS (01/03/2025) us Provider Scanning Final Result * TRANSTHORACIC ECHO (TTE) COMPLETE W DOPPLER/CF W CONTRAST (12/17/2024 5:07 PM SENIOR PRINCIPAL SOFTWARE ENGINEER) Anatomical Region Laterality Modality Ultrasound 12/17/2024 4:16 PM SENIOR PRINCIPAL SOFTWARE ENGINEER Narrative 12/18/2024 9:38 AM SENIOR PRINCIPAL SOFTWARE ENGINEER [facility] [place] [address] Transthoracic Echocardiographic Report Patient Name: MILAGROS MARTÍNEZ A : 1935 (89y 6m) Gender: M Study Date: 12/17/2024 04:16:46 PM Ht(Inch): 67 Wt(Lb): 179.9 BSA: 1.96 Retail Support Manager: Zoe Bansal Location: [facility] Order Provider: CAYLA VAZQUEZ Heart Rate: 74 BMI: 28.17 BP: 126 / 85 Quality: Technically difficult study Ref Provider: CAYLA VAZQUEZ PROCEDURES: Echocardiographic Report: ([id number]) Transthoracic complete echo with contrast, 2D, spectral [...] and. 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 FINDINGS: Left [...] By: Domingo Perales MD 12/18/2024 9:37:44 AM SENIOR PRINCIPAL SOFTWARE ENGINEER Electronically Signed By: Domingo Perales MD 12/18/2024 9:37:44 AM SENIOR PRINCIPAL SOFTWARE ENGINEER CC: Cayla Vazquez MD Procedure Note Domingo Perales MD - 12/18/2024 [facility] [place] [address] Transthoracic Echocardiographic Report Patient Name: MILAGROS MARTÍNEZ A : 1935 (89y 6m) Gender: M Study Date: 12/17/2024 04:16:46 PM Ht(Inch): 67 Wt(Lb): 179.9 BSA: 1.96 Retail Support Manager: Zoe Bansal Location: [facility] Order Provider:CAYLA VAZQUEZ Heart Rate: 74 BMI: 28.17 BP: 126 / 85 Quality: Technically difficultstudy Ref Provider: CAYLA VAZQUEZ PROCEDURES: Echocardiographic Report: ([id number]) Transthoracic complete echo withcontrast, 2D, spectral and tissue Doppler, color flow Doppler, M-mode. Contrast: Contrast Enhancement was Employed: After initial imaging due tosub- optimal quality related to co-morbidity defined by patient's body habitus, usedPerflutren contrast because 2 of 16 LV wall segments in any view not visualized,using the volume necessary to obtain adequate images and. INDICATIONS: I25.10 Atherosclerotic heart disease of shung[place] coronary artery withoutangina pectoris. FINDINGS: Left Ventricle: [...] [ 1.71 - 5.00 ] MV Decel Hgng978.21 msec [ 104.00 - 258.00 ] AoR [...] By: Domingo Perales MD 12/18/2024 9:37:44 AM SENIOR PRINCIPAL SOFTWARE ENGINEER Electronically Signed By: Domingo Perales MD 12/18/2024 9:37:44 AM SENIOR PRINCIPAL SOFTWARE ENGINEER CC: Cayla Vazquez MD Cayla Vazquez MD CV ECHO PROCEDURES Final Resu lt from Last 3 Months Insurance MEDICARE [facility] MEDICARE SUPPLEMENT MEDICARE [employer] MEDICARE SUPPLEMENT [facility] Care Teams Electrician Sound Relationship Specialty Start Date End Date Joanie Rosario 12/20/24
--- OUTSIDE RECORDS SUMMARY | 2025-02-26 10:16 | XMS_ITS | Continuity of Care Document ---
Author Organization [facility] Address [address] [place] [address] Phone Care Team Providers Care Trial Examiner Name Role Phone Clarita Castillo Unavailable Unavailable Advance Directives Directive Yes / No Effective Date File Name No Information Encounters Encounter Description Practice Location Reason(s) For Visit Diagnoses Date Provider Providers Copied on Encounter [facility], [address], [place], [place], [id number], [place] tel:[phone] [facility] No Information 3 Anna Otto. [address] , [address], [place], [address], [place]. tel:[phone] Family History Family Member Type Diagnosis Age At Onset No Information Payers Payer name Insurance type Covered green party ID Authoriza tion(s) [place] [id number] Social History Type Description Quantity Date Captured [...]
--- OUTSIDE RECORDS SUMMARY | 2025-02-26 10:16 | XMS_ITS | Patient Health Record ---
Author Organization [facility] Address [address] [place], [place] [id number] Care Team Providers Care Machine Operator Hop Picker Name Role Phone JUDITH JARA Unavailable [phone] Joanie Milligan Unavailable Unavailable Allergies Allergen (clinical drug ingredient) Drug/Non Drug Allergy documented on EMR Reaction Allergy Type Onset Date Status Iodine Unknown Drug Allergy 12/30/2022 active Reason For Referral No Information Medications Medication SIG (Take, Route, Frequency, Duration) Notes Start Date End Date Status Azithromycin 250 MG TAKE 2 TABLETS BY MOUTH ON DAY 1, AND THEN TAKE 1 TABLET BY MOUTH ONCE A DAY ON DAY 2 THROUGH DAY 5 Oral for 5 Days Active Gabapentin 300 MG Oral for 90 Days Active Azithromycin 250 MG TAKE 2 TABLETS BY MOUTH ON DAY 1, AND THEN TAKE 1 TABLET BY MOUTH ONCE A DAY ON DAY 2 THROUGH DAY 5 Oral for 5 Days Active Tamsulosin HCl 0.4 MG TAKE 1 CAPSULE BY MOUTH ONCE DAILY Oral for 90 Days Active Omeprazole 40 MG Oral for 90 Days Active Azithromycin 250 MG TAKE 2 TABLETS BY MOUTH ON DAY 1, AND THEN TAKE 1 TABLET BY MOUTH ONCE A DAY ON DAY 2 THROUGH DAY 5 Oral for 5 Days Not-Taking hydroCHLOROthiazide 25 MG Oral for 90 Days Active Tamsulosin HCl 0.4 MG TAKE 1 CAPSULE BY MOUTH ONCE DAILY Oral for 90 Days Not-Taking Sertraline HCl 50 MG TAKE 1 TABLET BY MOUTH ONCE DAILY NEEDED FOR ANXIETY Oral for 90 Days Active Tamsulosin HCl 0.4 MG TAKE 1 CAPSULE BY MOUTH ONCE DAILY Oral for 90 Days Not-Taking Tamsulosin HCl 0.4 MG Oral for 90 Days Active Tamsulosin HCl 0.4 MG TAKE 1 CAPSULE BY MOUTH ONCE DAILY Oral for 90 Days Active metFORMIN HCl 500 MG TAKE 1 TABLET BY MOUTH ONCE DAILY Oral for 90 Days Active Tamsulosin HCl 0.4 MG TAKE 1 CAPSULE BY MOUTH ONCE DAILY Oral for 90 Days Active Atorvastatin Calcium 40 MG Oral for 90 Days Active Naproxen 500 MG TAKE 1 TABLET BY MOUTH TWICE DAILY NEEDED FOR PAIN Oral for 30 Days Active methylPREDNISolone 4 MG TAKE BY MOUTH DIRECTED ON INSIDE OF PACKAGE Oral for 6 Days Active Immunizations Vaccine Route Administration Date Status Comme nts Influenza, high dose seasonal Unknown 07/08/2023 Admini stered Vital Signs Height-cm 170.18 cm 01/09/2025 Weight-kg 91.17 kg 01/09/2025 Height 67.00 in 01/09/2025 Weight 201 lbs 01/09/2025 BMI 31.48 kg/m2 01/09/2025 Encounters Encounter Location Date Provider Diagnosis [facility] [address] [place] [id number] 01/09/2025 JUDITH JARA Onychomycosis B35.1 ; Pain in right toe(s) M79.674 ; Pain in left toe(s) M79.675 and 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, bilateral legs I70.203 [facility] [address] [place] [id number] 05/09/2024 JUDITH JARA Onychomycosis B35.1 ; Pain in right toe(s) M79.674 ; Pain in left toe(s) M79.675 and 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, bilateral legs I70.203 [facility] [address] [place] [id number] 09/19/2024 JUDITH JARA Onychomycosis B35.1 ; Pain in right toe(s) M79.674 ; Pain in left toe(s) M79.675 and 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, bilateral legs I70.203 Assessments Encounter Date Diagnosis (ICD Code) Assessment Notes Treatment Notes Treatment Clinical Notes Section Notes 05/09/2024 Onychomycosis (ICD-10 - B35.1) 09/19/2024 Onychomycosis (ICD-10 - B35.1) 01/09/2025 Onychomycosis (ICD-10 - B35.1) 01/09/2025 Pain in right toe(s) (ICD-10 - M79.674) 09/19/2024 Pain in right toe(s) (ICD-10 - M79.674) 05/09/2024 Pain in right toe(s) (ICD-10 - M79.674) 05/09/2024 Pain in left toe(s) (ICD-10 - M79.675) 09/19/2024 Pain in left toe(s) (ICD-10 - M79.675) 01/09/2025 Pain in left toe(s) (ICD-10 - M79.675) 01/09/2025 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, bilateral legs (ICD-10 - I70.203) 09/19/2024 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, bilateral legs (ICD-10 - I70.203) 05/09/2024 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, bilateral legs (ICD-10 - I70.203) 01/09/2025 Other Nails 1-5 Bilateral were debrided extensively [...] Treatment Next Appt Details Provider Name:JUDITH AGRAWAL, 03/27/2025 10:50:00 AM, [address], [place], [place], [id number], Insurance Providers Payer Name Payer Address Payer Phone Subscriber Number Group Number Insured Name Patient Relationship to Insured Coverage Start Date Coverage End Date Medicare Part B [place] [address] [place] [id number] MILAGROS MARTÍNEZ Self - patient is the insured BCBS Medicare Advantage Plans [address] [place] [address] [id number] INOCENCIO MARTÍNEZALD Self - patient is the insured
--- OUTSIDE RECORDS SUMMARY | 2025-02-26 10:16 | XMS_ITS ---
Author Organization [facility] Address [address] [place], [place] [id number] Care Team Providers Care Airline Managerial Supervisor Name Role Phone JUDITH MCDONALD Unavailable [phone] Joanie Milligan Unavailable Unavailable Allergies Allergen (clinical drug ingredient) Drug/Non Drug Allergy documented on EMR Reaction Allergy Type Onset Date Status Iodine Unknown Drug Allergy 12/30/2022 active REASON FOR VISIT *General care Medications Medication SIG (Take, Route, Frequency, Duration) Notes Start Date End Date Status Azithromycin 250 MG TAKE 2 TABLETS BY MOUTH ON DAY 1, AND THEN TAKE 1 TABLET BY MOUTH ONCE A DAY ON DAY 2 THROUGH DAY 5 Oral for 5 Days Not-Taking Tamsulosin HCl 0.4 MG TAKE 1 CAPSULE BY MOUTH ONCE DAILY Oral for 90 Days Not-Taking Tamsulosin HCl 0.4 MG TAKE 1 CAPSULE BY MOUTH ONCE DAILY Oral for 90 Days Not-Taking Tamsulosin HCl 0.4 MG TAKE 1 CAPSULE BY MOUTH ONCE DAILY Oral for 90 Days Active Tamsulosin HCl 0.4 MG TAKE 1 CAPSULE BY MOUTH ONCE DAILY Oral for 90 Days Active Tamsulosin HCl 0.4 MG TAKE 1 CAPSULE BY MOUTH ONCE DAILY Oral for 90 Days Active Azithromycin 250 MG TAKE 2 TABLETS BY MOUTH ON DAY 1, AND THEN TAKE 1 TABLET BY MOUTH ONCE A DAY ON DAY 2 THROUGH DAY 5 Oral for 5 Days Active Azithromycin 250 MG TAKE 2 TABLETS BY MOUTH ON DAY 1, AND THEN TAKE 1 TABLET BY MOUTH ONCE A DAY ON DAY 2 THROUGH DAY 5 Oral for 5 Days Active Naproxen 500 MG TAKE 1 TABLET BY MOUTH TWICE DAILY NEEDED FOR PAIN Oral for 30 Days Active methylPREDNISolone 4 MG TAKE BY MOUTH DIRECTED ON INSIDE OF PACKAGE Oral for 6 Days Active hydroCHLOROthiazide 25 MG Oral for 90 Days Active Sertraline HCl 50 MG TAKE 1 TABLET BY MOUTH ONCE DAILY NEEDED FOR ANXIETY Oral for 90 Days Active Tamsulosin HCl 0.4 MG Oral for 90 Days Active metFORMIN HCl 500 MG TAKE 1 TABLET BY MOUTH ONCE DAILY Oral for 90 Days Active Atorvastatin Calcium 40 MG Oral for 90 Days Active Gabapentin 300 MG Oral for 90 Days Active Omeprazole 40 MG Oral for 90 Days Active Vital Signs Weight 201 lbs 01/09/2025 Weight-kg 91.17 kg 01/09/2025 Height 67.00 in 01/09/2025 Height-cm 170.18 cm 01/09/2025 BMI 31.48 kg/m2 01/09/2025 Encounters Encounter Location Date Provider Diagnosis [facility] [address] [place], [place] [id number] 01/09/2025 JUDITH MCDONALD Onychomycosis B35.1 ; Pain in right toe(s) M79.674 ; Pain in left toe(s) M79.675 and Unspecified atherosclerosis of little traverse arteries of extremities, bilateral legs I70.203 Assessments Encounter Date Diagnosis (ICD Code) Assessment Notes Treatment Notes Treatment Clinical Notes Section Notes 01/09/2025 Onychomycosis (ICD-10 - B35.1) 01/09/2025 Pain in right toe(s) (ICD-10 - M79.674) 01/09/2025 Pain in left toe(s) (ICD-10 - M79.675) 01/09/2025 Unspecified atherosclerosis of little traverse arteries of extremities, bilateral legs (ICD-10 - [...] Up: 9 weeks, Reason: Provider Name:JUDITH AGRAWAL, 03/27/2025 10:50:00 AM, [address], [place], [place], [phone], Progress Notes * MILAGROS MARTÍNEZ SRDOB: [birth year] (89 yo M)Acc No.[id number]:01/09/2025 Patient: MILAGROS PELAEZ SR Provider: Whit Mcdonald DPM :1935 A ge:89 Y S ex:Male Date:01/09/2025 Address:[address] [place] [address] Subjective: * Chief Complaints: * 1 . *General care. * HPI: H PI: General care P atient presents to the office for at risk foot care. Patient states that their nails are thickened, elongated and painful. Patient states that it is aggravated by shoe gear. Onset is gradual. Patient denies being diabetic. Patient denies taking prescription blood thinners but does take a daily aspirin. Date last seen by Dr. Milligan was 12/2024. Initials sea. * ROS: G eneral / Constitutional: Patient denies c hange in appetite, fatigue, chills, fever. C ardiovascular: Chest pain d enies. N eurologic: Loss of use of extremity d enies. * Medical History: M edical History Verified. * Social History: M igrated Social History: M igrated Social History: Smoking Status : Former tobacco user , History of tobacco use :. * Medications: T aking Gabapentin 300 MG Capsule Oral , Taking Omeprazole 40 MG Capsule Delayed Release Oral , Taking hydroCHLOROthiazide 25 MG Tablet Oral , Taking Sertraline HCl 50 MG Tablet TAKE 1 TABLET BY MOUTH ONCE DAILY NEEDED FOR ANXIETY Oral , Taking Tamsulosin HCl 0.4 MG Capsule Oral , Taking metFORMIN HCl 500 MG Tablet TAKE 1 TABLET BY MOUTH ONCE DAILY Oral , Taking Atorvastatin Calcium 40 MG Tablet Oral , Taking Naproxen 500 MG Tablet TAKE 1 TABLET BY MOUTH TWICE DAILY NEEDED FOR PAIN Oral , Taking methylPREDNISolone 4 MG Tablet Therapy Pack TAKE BY MOUTH DIRECTED ON INSIDE OF PACKAGE Oral , Taking Tamsulosin HCl 0.4 MG Capsule TAKE 1 CAPSULE BY MOUTH ONCE DAILY Oral , Taking Azithromycin 250 MG Tablet TAKE 2 TABLETS BY MOUTH ON DAY 1, AND THEN TAKE 1 TABLET BY MOUTH ONCE A DAY ON DAY 2 THROUGH DAY 5 Oral , Taking Azithromycin 250 MG Tablet TAKE 2 TABLETS BY MOUTH ON DAY 1, AND THEN TAKE 1 TABLET BY MOUTH ONCE A DAY ON DAY 2 THROUGH DAY 5 Oral , Taking Tamsulosin HCl 0.4 MG Capsule TAKE 1 CAPSULE BY MOUTH ONCE DAILY Oral , Taking Tamsulosin HCl 0.4 MG Capsule TAKE 1 CAPSULE BY MOUTH ONCE DAILY Oral , Not-Taking Azithromycin 250 MG Tablet TAKE 2 TABLETS BY MOUTH ON DAY 1, AND THEN TAKE 1 TABLET BY MOUTH ONCE A DAY ON DAY 2 THROUGH DAY 5 Oral , Not-Taking Tamsulosin HCl 0.4 MG Capsule TAKE 1 CAPSULE BY MOUTH ONCE DAILY Oral , Not-Taking Tamsulosin HCl 0.4 MG Capsule TAKE 1 CAPSULE BY MOUTH ONCE DAILY Oral * Allergies: I odine: Allergy - Onset [...] P ain in right toe(s) - M79.674 3. P ain in left toe(s) - M79.675 4 . U nspecified atherosclerosis of little traverse arteries of extremities, bilateral legs - I70.203 Plan: * Treatment: * Procedure Codes: 1 1721 DEBRIDE NAIL, 6 OR MORE, Modifiers: Q8 * Follow Up: 9 weeks * Billing Information: * Visit Code: * Procedure Codes: 76229 DEBRIDE NAIL, 6 OR MORE. Modifiers: Q8 * Electronic signature of JUDITH TERENCE MCDONALD on 02/26/2025 at 10:16 AM CDT Sign off status: Pending * Provider: Whit Mcdonald DPM Date: 0 01/09/2025 Generated for Donya zhang/Brandyn/eTransmitting on: 0 02/26/2025 10:16 AM CDT History and Physical Notes * HPI (History of Present Illness) Category Sub-Category Detail Notes Category Not es HPI General care Patient presents to the office for at risk foot care. Patient states that their nails are thickened, elongated and painful. Patient states that it is aggravated by shoe gear. Onset is gradual. Patient denies being diabetic. Patient denies taking prescription blood thinners but does take a daily aspirin. Date last seen by Dr. Milligan was 12/2024. Initials sea Examination Category Sub-Category Detail Notes [...]
--- OUTSIDE RECORDS SUMMARY | 2025-02-26 10:16 | XMS_ITS | Clinical Summary ---
Author Organization [facility] Address [address] [place] [phone] Phone Care Team Providers Care Owner Operator Name Role Phone Benja Smith MD Primary Care Provider Social History Tobacco Use Types Packs/Day Years Used Date Smoking Tobacco: Never Assessed Sex and Gender Information Value Date Recorded Sex Assigned at Not on file Legal Sex Male 10:17 AM SENIOR ECOLOGIST Gender Identity Not on file Sexual Orientation [...] A HOSPITAL ONLY BCBS SUPP Care Teams Owner Operator Relationship Specialty Start Date End Date Benja Smith MD [address] [place] [address] PCP - General Family Practice 12/20/17
--- OUTSIDE RECORDS SUMMARY | 2025-02-26 10:16 | XMS_ITS | Clinical Summary ---
Author Organization [facility] Address [address] [place] [address] Care Team Providers Care Director Trial Name Role Phone Unavailable Primary Care Provider Unavailabl e Allergies Active Allergy Reactions Criticality Noted Date Comments Adhesive Unknown Low Amoxicillin Rash Medium Ciprocinonide Hives Medium 09/29/2009 Iodinated Contrast Media Rash Medium 06/28/2007 Tetanus Toxoid Swelling Medium Medications vitamin E (AQUASOL E) 400 unit capsule daily. 8 Active aspirin 81 mg tablet daily. 7 Active dgblowbr-llt-RJ -lycopen-lutein 0.4-300-250 mg-mcg-mcg tabletIndicatio ns:Vitamin Deficiency Prevention daily. Active omega 3-gil-nsp-fish oil 100-160-1,000 mg capsule daily. Active tamsulosin [...] mg total) by mouth daily Active C,E,zinc,copper 38-snffn2i-mcf (Ocuvite Adult 50 Plus) 250-5-1 mg capsule [...] Type Department Care Team Description 02/21/2025 Telephone [facility] Cardiology [address] [place] [address] [place] [address] [place] [address] Cayla Vazquez MD Lab Reminder 01/15/2025 Telephone [facility] Cardiology [address] [place] [address] [place] [address] [place] [phone] Cayla Vazquez MD 01/13/[address] [place] [address] Cayla Vazquez MD Test Results 01/13/2025 Telephone [facility] Cardiology [address] [place] [address] [place] [phone] Cayla Vazquez MD Test Results 01/08/2025 Telephone [facility] Cardiology [address] [facility] 8th [place] [address] [place] [address] Cayla Vazquez MD Test Results 01/03/2025 Orders Only [facility] Scanning, Provider 01/03/2025 Telephone [facility] Cardiology [address] [place] [address] 8th [place] [address] [place] [address] Cayla Vazquez MD Additional Services Or Orders 01/03/[address]th [place] [address] [place] [address] Cayla Vazquez MD Lab Orders 12/18/2024 Results Follow-Up Cardiology Cayla Vazquez MD 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); Shortness of breath 12/17/2024 3:51 PM C4 PLANNER - 12/17/2024 11:59 PM C4 PLANNER Hospital Encounter [facility] Cardiac Diagnostic Lab [facility] [address] [address] 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 Discharge Disposition: Discharge to home or self care from Last 3 Months Immunizations Immunization Administration Dates Next Due Influenza, Quadrivalent, Rec ombinant, Egg Free, Preservative Free, Intramuscular 07/25/2019 Influenza, Trivalent, High D ose, Split, Preservative Free, Intramuscular 07/11/2018 Surgical History Surgery Date Site/Laterality Comments MT CORONARY ARTERY BYPASS 1 CORONARY VENOUS GRAFT CABG - x 3 (Added by TW Conv) MT ARTHRP ACETBLR/PROX FEM P ROSTC AGRFT/ALGRFT Total Hip Replacement - 11/22 (Added by TW Conv) MT TRURL ELECTROSURG RESCJ PROSTATE BLEED COMPLETE Transurethral Resection Of Prostate (TURP) - (Added by TW Conv) MT CYSTOURETHROSCOPY WITH BIOPSY Cystoscopy With Biopsy - bladder bx 01/23 (-); bladder bx @ OSH 02/19 (-) per [facility] review (Added by TW Conv) [...] Hip Replacement - (Added by TW Conv) MT NJX AA&/STRD TFRML EPI LUMBAR/SACRAL 1 LEVEL Corticosteroid Inj Transforaminal Approach Lumbar W/ Fluoroscopic Guidance - (Added by TW Conv) MT NJX AA&/STRD TFRML EPI LUMBAR/SACRAL 1 LEVEL Corticosteroid Inj Transforaminal Approach Lumbar W/ Fluoroscopic Guidance - (Added by TW Conv) MT NJX AA&/STRD TFRML EPI LUMBAR/SACRAL 1 LEVEL [...] TW Conv) 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 - (Added by TW Conv) [...] on file Legal Sex Male 9:16 PM C4 PLANNER Gender Identity Not on file Sexual Orientation Not on file Obstetrics History Last Filed Vital Signs Vital Sign Reading Time Taken Comments Blood Pressure 123/72 11/21/2024 3:59 PM C4 PLANNER Pulse 80 11/21/2024 3:59 PM C4 PLANNER Temperature 36.2 C (97.1 F) 05/25/2020 9:30 AM CDT obtained from pt Respiratory Rate - - Oxygen Saturation 95% 11/21/2024 3:5 9 PM C4 PLANNER Inhaled Oxygen Concentration - - Weight 81.6 kg (180 lb) 11/21/2024 3:59 PM C4 PLANNER Height 170.2 cm (5' 7 ) 11/21/2024 3:59 PM C4 PLANNER Body Mass Index 28.19 11/21/2024 3:59 PM C4 PLANNER Plan of Treatment Health Maintenance Due Date Last Done Comments Depression Screening 1935 Fall Risk Assessment 1935 DTaP/Tdap/Td Vaccine (1 - Tdap) 1947 Hepatitis B Screening 1954 Pneumococcal vaccine 65+ (1 of 1 - PCV) 1986 Zoster Vaccine (1 of 2) 1986 Well Visit 65+ 2001 Influenza Vaccine (Season Ended) 2025 07/25/20 19, 07/11/2018 Procedures Procedure Name Priority Date/Time Associated Diagnosis Comments SCAN - LABS 01/03/2025 TRANSTHORACIC ECHO (TTE) COMPLETE W DOPPLER/CF W CONTRAST Routine 12/17/2024 5:07 PM C4 PLANNER 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 from Last 3 Months Results * SCAN - LABS (01/03/2025) us Provider Scanning Final Result * TRANSTHORACIC ECHO (TTE) COMPLETE W DOPPLER/CF W CONTRAST (12/17/2024 5:07 PM C4 PLANNER) Anatomical Region Laterality Modality Ultrasound 12/17/2024 4:16 PM C4 PLANNER Narrative 12/18/2024 9:38 AM C4 PLANNER [facility] Cardiac [place] [address] Transthoracic Echocardiographic Report Patient Name: MILAGROS MARTÍNEZ A : 1935 (89y 6m) Gender: M Study Date: 12/17/2024 04:16:46 PM Ht(Inch): 67 Wt(Lb): 179.9 BSA: 1.96 Safety Clothing And Equipment Developer: Zoe Bansal Location: [facility] Order Provider: TAYLORCAYLA Heart Rate: 74 BMI: 28.17 BP: 126 / 85 Quality: Technically difficult study Ref Provider: CAYLA VAZQUEZ PROCEDURES: Echocardiographic Report: ([id number]) Transthoracic complete echo with contrast, 2D, spectral [...] and. 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 FINDINGS: Left [...] By: Domingo Perales MD 12/18/2024 9:37:44 AM C4 PLANNER Electronically Signed By: Domingo Perales MD 12/18/2024 9:37:44 AM C4 PLANNER CC: Cayla Vazquez MD Procedure Note Domingo Perales MD - 12/18/2024 [facility] Cardiac [place] [address] [place] [address] Transthoracic Echocardiographic Report Patient Name: MILAGROS MARTÍNEZ A : 1935 (89y 6m) Gender: M Study Date: 12/17/2024 04:16:46 PM Ht(Inch): 67 Wt(Lb): 179.9 BSA: 1.96 Safety Clothing And Equipment Developer: Zoe Bansal Location: [facility] Order Provider:CAYLA VAZQUEZ Heart Rate: 74 BMI: 28.17 BP: 126 / 85 Quality: Technically difficultstudy Ref Provider: CAYLA VAZQUEZ PROCEDURES: Echocardiographic Report: ([id number]) Transthoracic complete echo withcontrast, 2D, spectral and tissue Doppler, color flow Doppler, M-mode. Contrast: Contrast Enhancement was Employed: After initial imaging due tosub- optimal quality related to co-morbidity defined by patient's body habitus, usedPerflutren contrast because 2 of 16 LV wall segments in any view not visualized,using the volume necessary to obtain adequate images and. INDICATIONS: I25.10 Atherosclerotic heart disease of mashpee coronary artery withoutangina pectoris. FINDINGS: Left Ventricle: [...] [ 1.71 - 5.00 ] MV Decel Wlwc430.21 msec [ 104.00 - 258.00 ] AoR [...] By: Domingo Perales MD 12/18/2024 9:37:44 AM C4 PLANNER Electronically Signed By: Domingo Perales MD 12/18/2024 9:37:44 AM C4 PLANNER CC: Cayla Vazquez MD Cayla Vazquez MD CV ECHO PROCEDURES Final Resu lt from Last 3 Months Insurance MEDICARE [facility] BLUE [employer] MEDICARE SUPPLEMENT MEDICARE [facility] MEDICARE SUPPLEMENT [facility] Care Teams Director Trial Relationship Specialty Start Date End Date Joanie Rosario 12/20/24
--- OUTSIDE RECORDS SUMMARY | 2025-02-26 10:17 | XMS_ITS ---
Author Organization [facility] Address [address] [place], [place] [phone] Care Team Providers Care Senior Biostatistician Name Role Phone ESTEFANI JUDITH Unavailable [phone] Vernace, Joanie Unavailable Unavailable REASON FOR VISIT *General care Encounters Encounter Location Date Provider Diagnosis [facility] [place] [address] [place], [place] [phone] 07/11/2024 JUDITH MCDONALD Plan Of Treatment Next Appt Details Provider Name:JUDITH AGRAWAL, 03/27/2025 10:50:00 AM, [address], [place], [place], [phone], Progress Notes * MILAGROS MARTÍNEZ SRDOB: (89 yo M)Acc No.[id number]:07/11/2024 Patient: MILAGROS PELAEZ SR Provider: Whit Mcdonald DPM :1935 A ge:89 Y S ex:Male Date:07/11/2024 Address:[address] [place], [place] [phone] Subjective: * Chief Complaints: * 1 . *General care. * Medical History: Objective: * Vitals: Assessment: Plan: * Treatment: * Billing Information: * Visit Code: * Procedure Codes: * Electronic signature of JUDITH MCDONALD DPM on 02/26/2025 at 10:16 AM CDT Sign off status: Pending * Provider: Whit Mcdonald DPM Date: 0 07/11/2024 Generated for Donya zhang/Brandyn/Giorgi on: 0 02/26/2025 10:16 AM CDT
[2025-02-26 20:24] LABS: Anion Gap 13 mmol/L (4-12); Blood Urea Nitrogen 22 mg/dL (9-20); Calcium 9.5 mg/dL (8.4-10.2); Carbon Dioxide 28 mmol/L (22-30); Chloride 100 mmol/L (98-107); Estimated Glomerular Filt Rate > 60; Glucose 110 mg/dL (65-110); Potassium 3.8 mmol/L (3.4-5.0); Sodium 141 mmol/L (137-145)
== END 2025-02-26 09:55 | disposition home or self-care (01) ==
LOC: ANHGOSHLAB 09:55
PROVIDERS: PCP Family Medicine; Visit Provider Internal Medicine Cardiovascular Disease
DX: R06.02 Shortness of breath (principal)
CPT/HCPCS: 36415; 80048

== ENCOUNTER 2025-09-18 09:01 | Outpatient (CLI) | payer MEDICARE, SELFPAY ==
--- OUTSIDE RECORDS SUMMARY | 2025-09-18 09:39 | XMS_ITS | Clinical Summary ---
Author Organization [facility] al Address [address] [place] [address] Care Team Providers [facility] Name Role Phone Joanie Milligan Primary Care Provider [phone] Allergies Active Allergy Reactions Criticality Noted Date Comments Adhesive Unknown Low Amoxicillin Rash Medium Ciprocinonide Hives Medium 09/29/2009 Iodinated Contrast Media Rash Medium 06/28/2007 Tetanus Toxoid Swelling Medium Medications vitamin E (AQUASOL E) 400 unit capsule daily. 8 Active aspirin 81 mg tablet daily. 7 Active ngnhdipg-fnd-YM -lycopen-lutein 0.4-300-250 mg-mcg-mcg tabletIndicatio ns:Vitamin Deficiency Prevention daily. Active omega 7-snk-etj-fish oil 100-160-1,000 mg capsule daily. Active tamsulosin [...] mg total) by mouth daily Active C,E,zinc,copper 77-xuztl7i-vom (Ocuvite Adult 50 Plus) 250-5-1 mg capsule [...] mouth daily 30 tablet 11 5 Active cyclobenzaprine (FLEXERIL) 5 mg tablet Take 1 tablet (5 mg total) by mouth 3 (three) times a day as needed for muscle spasms 20 tablet 5 Active metoprolol XL (TOPROL-XL) 25 mg extended release tablet Take 1 tablet (25 mg total) by mouth daily 90 tablet 5 Active albuterol HFA (PROVENTIL HFA,VENTOLIN HFA,PROAIR HFA) 90 mcg/actuation inhaler INHALE 1 PUFF BY MOUTH EVERY 4 HOURS NEEDED FOR SHORTNESS OF BREATH OR WHEEZING Active fluocinolone (SYNALAR) 0.01 % external solution as needed 5 Active potassium chloride ER 10 mEq CR tablet Take 1 tablet/capsule (10 mEq total) by mouth daily 5 Active traMADoL (ULTRAM) 50 mg tablet Active Active Problems Problem Noted Date Diagnosed Date Lightheadedness 06/02/2025 Near syncope 06/08/2021 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 Essential hypertension 05/10/2018 Hyperlipidemia 05/10/2018 Encounters Date Type Department Care Team Description 07/14/2025 3:00 PM CDT Office Visit [facility] [address] [place] [address] [place] [address] Adán Lewis MD Lightheadedness (Primary Dx); Palpitations; Ventricular ectopy; 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 Emergency Department [address] [place] [id number] Carmelo Hernandez DO Dizziness (Primary Dx); Diaphoresis Discharge Disposition: Discharge to home or self care 06/25/2025 Telephone [facility] [place] [address] [place] [address] Mehreen Alvarenga MD 06/25/2025 Results Follow-Up Cardiology Adán Lewis MD Extended/Custodial Holter Patch (>48 hours up to 7 days) from Last 3 Months Immunizations Immunization Administration Dates Next Due Influenza, Quadrivalent, Rec ombinant, Egg Free, Preservative Free, Intramuscular 07/25/2019 Influenza, Trivalent, High D ose, Split, Preservative Free, Intramuscular 07/11/2018 Surgical History Surgery Date Site/Laterality Comments [place] CORONARY ARTERY BYPASS 1 CORONARY VENOUS GRAFT CABG - x 3 (Added by TW Conv) [place] ARTHRP ACETBLR/PROX FEM P ROSTC AGRFT/ALGRFT Total Hip Replacement - 11/22 (Added by TW Conv) [place] TRURL ELECTROSURG RESCJ PROSTATE BLEED COMPLETE Transurethral Resection Of Prostate (TURP) - (Added by TW Conv) [place] CYSTOURETHROSCOPY WITH BIOPSY Cystoscopy With Biopsy - bladder bx 01/23 (-); bladder bx @ OSH 02/19 (-) per [facility] review (Added by TW Conv) CORONARY [...] Hip Replacement - (Added by TW Conv) [place] NJX AA&/STRD TFRML EPI LUMBAR/SACRAL 1 LEVEL Corticosteroid Inj Transforaminal Approach Lumbar W/ Fluoroscopic Guidance - (Added by TW Conv) NJ NJX AA&/STRD TFRML EPI LUMBAR/SACRAL 1 LEVEL Corticosteroid Inj Transforaminal Approach Lumbar W/ Fluoroscopic Guidance - (Added by TW Conv) NJ NJX AA&/STRD TFRML EPI LUMBAR/SACRAL 1 LEVEL [...] TW Conv) 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 More than three times a week 06/03/2025 How often do you get togethe r with friends or relatives? More than three times a week 06/03/2025 How often do you attend chur ch or tenriism services? Never 06/03/2025 Do you belong to any clubs o r organizations such as gnosticism groups, unions, fraternal or athletic groups, or school groups? No 06/03/2025 How often do you attend meet ings of the clubs or organizations you belong to? Never 06/03/2025 Are you , , di vorced, , never , or living with a partner? 06/03/2025 AUDIT-C Answer Date Recorded Q1: How often do you have a drink containing alcohol? Never 06/02/2025 Q2: How many drinks containi ng alcohol do you have on a typical day when you are drinking? Patient does not drink Q3: How often do you have si x or more drinks on one occasion? Never 06/02/2025 Overall Financial Resource Strain (CARDIA) Answe r Date Recorded How hard is it for you to pa y for the very basics like food, housing, medical care, and heating? Not very hard 06/03/2025 Hunger Vital Sign Answer Date Recorded Within the past 12 months, y ou worried that your food would run out before you got the money to buy more. Never true 06/03/20 25 Within the past 12 months, t he food you bought just didn't last and you didn't have money to get more. Never true 06/03/2025 PRAPARE - Transportation Answer Date Re corded In the past 12 months, has l ack of transportation kept you from medical appointments or from getting medications? No 05/16 In the past 12 months, has l ack of transportation kept you from meetings, work, or from getting things needed for daily living? No 06/03/2025 Housing Stability Vital Sign Answer Praneeth e Recorded In the last 12 months, was t here a time when you were not able to pay the mortgage or rent on time? No 06/03/2025 In the past 12 months, how m any times have you moved where you were living? 0 06/03/2025 At any time in the past 12 m [facility], were you homeless or living in a usp (including now)? No 06/03/2025 [facility] Utilities Answer Date Recorded In the past 12 months has th e [employer], gas, oil, or water company threatened to shut off services in your home? No 06/03/2025 Personal Safety Answer Date Recorded Have you ever been in or are you currently in a harmful physical or emotional relationship or is someone making you feel afraid or unsafe? Denies 06/25/2025 Sex and Gender Information Value Date Recorded Sex Assigned at Not on file Legal Sex Male 9:16 PM [employer] Gender Identity Not on file Sexual Orientation Not on file Last Filed Vital Signs Vital Sign Reading Time Taken Comments Blood Pressure 112/65 07/14/2025 2:53 PM CDT Pulse 68 07/14/2025 2:53 PM CDT Temperature 36.5 C (97.7 F) 06/25/2025 11:45 PM CDT Respiratory Rate 17 06/26/2025 1:45 AM CDT Oxygen Saturation 93% 07/14/2025 2:53 PM CDT Inhaled Oxygen Concentration - - Weight 81.2 kg (179 lb) 07/14/2025 2:53 PM CDT Height 170.2 cm (5' 7) 07/14/2025 2:53 PM CDT Body Mass Index 28.04 07/14/2025 2:53 PM CDT Plan of Treatment Health Maintenance Due Date Last Done Comments Depression Screening 1936 DTaP/Tdap/Td Vaccine (1 - Tdap) 1947 Hepatitis B Screening 1954 Zoster Vaccine (1 of 2) 1986 Well Visit 65+ 2001 Influenza Vaccine (#1) 2025 , 07/01/2020, 07/25/2019, Additional history exists Fall Risk Assessment 06/03/2026 06/03/2025 Pneumococcal vaccine 65+ Completed 12/15/2014, 01/2005 Procedures Procedure Name Priority Date/Time Associated Diagnosis Comments CT CHEST WO CONTRAST ED 06/26/2025 12:46 AM CDT URINALYSIS AND REFLEX TO MICROSCOPIC AND CULTURE STAT 06/26/2025 12:28 AM CDT TROPONIN T HIGH-SENSITIVITY STAT 06/26/2025 12:27 AM CDT TROPONIN T HIGH-SENSITIVITY 2-HOUR Timed 06/25/2025 11:37 PM CDT XR CHEST 1 VIEW ED 06/25/2025 9:10 PM CDT ECG 12-LEAD STAT 06/25/2025 8:59 PM CDT EGFR STAT 06/25/2025 8:55 PM CDT DIFFERENTIAL AUTO STAT 06/25/2025 8:5 5 PM CDT TROPONIN T HIGH-SENSITIVITY SERIES (BASELINE, 2HR, 4HR, 6HR) STAT 06/25/2025 8:55 PM CDT COMPREHENSIVE METABOLIC PANEL STAT 06/25/2025 8:55 PM CDT CBC WITH AUTO DIFFERENTIAL STAT 06/25/2025 8:55 PM CDT from Last 3 Months Results * CT Chest WO Contrast (06/26/2025 12:46 AM CDT) Anatomical Region Laterality Modality Body N/A Computed Tomogra phy 06/26/2025 1:11 AM CDT Narrative 06/26/2025 1:15 AM CDT EXAM DESCRIPTION: CT CHEST WO CONTRAST REASON FOR STUDY: cough, dizzy/ sweats Patient states he was seen at this facility about a month ago for heart issues. He states they sent him home with a heart monitor, which showed he was having HRs from 40s to 160s. Results were sent to labor relations manager today but he hasn't seen that dr yet for follow up or treatment. States he has been sweating and feeling dizzy again today and his labor relations manager instructed him to come to the ER to be evaluated. TECHNIQUE: CT scan of the chest performed without intravenous contrast using helical scanning technique. Reconstructed coronal and sagittal MPR images reviewed. All images stored on PACS. Automated exposure control was used as a dose optimization technique for this examination. COMPARISON: None FINDINGS: LUNGS: Minimal left base atelectasis. Tiny granuloma posterior left upper lobe image 29/111. Trachea and major airways patent. Elevated left hemidiaphragm. HEART/MEDIASTINUM/STEPHANE: Moderate cardiomegaly. Coronary artery calcifications. No enlarged lymph node. Thoracic inlet unremarkable. UPPER ABDOMEN: Renal cysts. MUSCULOSKELETAL: Moderate superior endplate compression deformity at T9 looks relatively recent. Chronic appearing height loss at T10. Age-indeterminate inferior endplate defect at L1. Healed sternotomy. Shoulder arthritis. CHEST WALL: Unremarkable. IMPRESSION: 1. No acute pulmonary process identified. 2. Moderate superior endplate compression deformity at T9 appears recent. Age-indeterminate inferior endplate defect at L1. THIS IS AN ELECTRONICALLY VERIFIED FINAL REPORT 06/26/2025 1:15 AM - Electronically signed by Sandor Perales M.D. AR: BEN Report ID: [id number] Reading Location: [id number] Procedure Note Sandor Perales MD - 06/26/2025 EXAM DESCRIPTION: CT CHEST WO CONTRAST REASON FOR STUDY: cough, dizzy/ sweats Patient states he was seen at this facility about a month ago for heart issues. He states they sent him home with a heart monitor, which showedhe was having HRs from 40s to 160s. Results were sent to labor relations manager todaybut he hasn't seen that dr yet for follow up or treatment. States he hasbeen sweating and feeling dizzy again today and his labor relations manager instructed himto come to the ER to be evaluated. TECHNIQUE: CT scan of the chest performed without intravenous contrastusing helical scanning technique. Reconstructed coronal and sagittal MPR images reviewed. All images stored on PACS. Automated exposure control was usedas a dose optimization technique for this examination. COMPARISON: None FINDINGS: LUNGS: Minimal left base atelectasis. Tiny granuloma posterior leftupper lobe image 29/111. Trachea and major airways patent. Elevated left hemidiaphragm. HEART/MEDIASTINUM/STEPHANE: Moderate cardiomegaly. Coronary artery calcifications. No enlarged lymph node. Thoracic inlet unremarkable. UPPER ABDOMEN: Renal cysts. MUSCULOSKELETAL: Moderate superior endplate compression deformity at S3husfm relatively recent. Chronic appearing height loss at T10.Age-indeterminate inferior endplate defect at L1. Healed sternotomy. Shoulder arthritis. CHEST WALL: Unremarkable. IMPRESSION: 1. No acute pulmonary process identified. 2. Moderate superior endplate compression deformity at T9 appearsrecent. Age-indeterminate inferior endplate defect at L1. THIS IS AN ELECTRONICALLY VERIFIED FINAL REPORT 06/26/2025 1:15 AM - Electronically signed by Sandor Perales M.D. AR: BEN Report ID: [id number] Reading Location: [place] [address] Carmelo Hernandez DO IMG CT PROCEDURES Final Result * (ABNORMAL) Urinalysis reflex to microscopic and culture Urine (06/26/2025 12:28 AM CDT) Color, ur Yellow Yellow Comment:Testing performed by : [address] [address] Clarity, ur Clear Clear [facility] Comment:Testing performed by : [address] [address] Specific gravity, ur 1.031(H) 1.003 - 1.030 [place] Comment:Testing performed by : [address] [address] pH, urine 5.5 [place] Comment: Interpretive Data U rine pH is affected by diet, medications, systemic acid-base disturbances, and renal tubular function. pH may affect urinary stone formation. For example, urine pH below 6.0 may help reduce the tendency for calcium phosphate stones and pH greater than 6.0 may reduce the tendency for uric acid stone formation. Source: [employer] Current Interpretive Data was last revised on 2017 Testing performed by: [address] [address] Protein, ur ql Negative Negative [place] Comment:Testing performed by : [address] [address] Glucose, ur ql 4+(A) Negative [place] Comment:Testing performed by : [address], [place]., [address] Ketones, ur Negative Negative [place] Comment:Testing performed by : [address], [place]., [address] Bilirubin, ur Negative Negative [place] Comment:Testing performed by : [address], [place]., [address] Blood, ur Negative Negative [place] Comment:Testing performed by : [address], [place]., [address] Urobilinogen, ur <2.0 <2.0 mg/dL [facility] Comment:Testing performed by : [address], [place]., [address] Nitrite, ur Negative Negative [place] Comment:Testing performed by : [address], [place]., [address] Leukocyte esterase, ur Negative Negative [place] Comment:Testing performed by : [address], [place]., [address] UA reflex comment Reflex conditions for microscopic UA and culture not met. [facility] Comment:Testing performed by : [address], [place]., [address] Urine 06/26/2025 12:2 8 AM CDT 06/26/2025 12:34 AM CDT Carmelo Hernandez DO LAB MICROBIOLOGY - GENERAL ORD ERABLES Final Result [facility] [address] Department of Laboratories [place], [place] [id number] * (ABNORMAL) Troponin T high-sensitivity (06/26/2025 12:27 AM CDT) Trop T hs 23(H) <=22 ng/L Comment: Interpretive Data For further hscTnT resources including the diagnostic algorithm and an aid in interpretation, copy and paste this link: [email or web address].[email or web address]/show/[email or web address] Current Interpretive Data last revised 2020. Testing performed by: [facility], [address] [place] [address]., [address] Blood 06/26/2025 12:2 7 AM CDT 06/26/2025 12:34 AM CDT Carmelo [facility] LAB BLOOD ORDERABLES Final Res ult Performing Organization Address City/[facility]/ZIP Co de Phone Number [facility] [address] [facility] [place] [address] * (ABNORMAL) Troponin T high-sensitivity 2-hour (06/25/2025 11:37 PM CDT) Trop T hs 23(H) <=22 ng/L Comment: Interpretive Data For further hscTnT resources including the diagnostic algorithm and an aid in interpretation, copy and paste this link: [email or web address].[email or web address]/show/[email or web address] Current Interpretive Data last revised 2020. Testing performed by: [facility], [address] [place] [address]., [address] Trop T hs delta -1 ng/L [place] Comment:Testing performed by : [address] [address] Trop T hs interp Insignificant [place] Comment:Testing performed by : [address] [address] Blood 06/25/2025 11:3 7 PM CDT 06/25/2025 11:43 PM CDT Carmelo [facility] LAB BLOOD ORDERABLES Final Res ult Performing Organization Address [facility]/ZIP Co de Phone Number [facility] [address] [facility] [place] [address] * XR Chest 1 Vw Portable (If patient hemodynamically UNstable or UNable to ambulate) (06/25/2025 9:10PM CDT) Anatomical Region Laterality Modality Body, Chest N/A Computed Radiogr aphy 06/25/2025 9:18 PM CDT Narrative 06/25/2025 9:18 PM CDT EXAM DESCRIPTION: XR CHEST 1 VIEW REASON FOR STUDY: chest pain Dizziness, vertigo, chest discomfort TECHNIQUE: Single radiographic view(s) of the chest. COMPARISON: 06/02/2025 FINDINGS: LUNGS: Mild bibasilar infiltrates are suspected superimposed on chronic lung changes. No consolidation or effusion is seen. HEART/MEDIASTINUM: Cardiac silhouette normal in size. Mediastinal and hilar contours appear normal. LINES/TUBES: None. BONES: No acute osseous abnormality. IMPRESSION: Mild bibasilar infiltrates are suspected superimposed on chronic lung changes. THIS IS AN ELECTRONICALLY VERIFIED FINAL REPORT 06/25/2025 9:18 PM - Electronically signed by Marin CALHOUN: LJ Report ID: [id number] Reading Location: [place] [address] Procedure Note Marin Womack MD - 06/25/2025 EXAM DESCRIPTION: XR CHEST 1 VIEW REASON FOR STUDY: chest pain Dizziness, vertigo, chest discomfort TECHNIQUE: Single radiographic view(s) of the chest. COMPARISON: 06/02/2025 FINDINGS: LUNGS: Mild bibasilar infiltrates are suspected superimposed on chronic lung changes. No consolidation or effusion is seen. HEART/MEDIASTINUM: Cardiac silhouette normal in size. Mediastinal andhilar contours appear normal. LINES/TUBES: None. BONES: No acute osseous abnormality. IMPRESSION: Mild bibasilar infiltrates are suspected superimposed onchronic lung changes. THIS IS AN ELECTRONICALLY VERIFIED FINAL REPORT 06/25/2025 9:18 PM - Electronically signed by Marin CALHOUN: LJ Report ID: [id number] Reading Location: [place] [address] us Carmelo David DO IMG XR PROCEDURES Final Result * ECG 12 lead (06/25/2025 8:59 PM CDT) [facility] Ventricular Rate EKG/Min 65 BPM [facility] Atrial Rate 65 BPM [facility] [place]-Interval (MSEC) 174 ms [facility] QRS-Interval (MSEC) 72 ms [facility] QT-Interval (MSEC) 422 ms [facility] QTc 438 ms [facility] P [place] 54 degrees [facility] R [place] 2 degrees [facility] T [place] 81 degrees [facility] Diagnosis Normal sinus rhythm Cannot rule out Anterior infarct , age undetermined Abnormal ECG When compared with ECG of 01-JUN-2025 23:13, Premature atrial complexes are no longer Present Criteria for Inferior infarct are no longer Present T wave inversion no longer evident in Anterior leads Confirmed by MD GOYAL FAYE ([id number]) on 06/26/2025 8:29:09 AM [facility] 06/25/2025 8:59 PM CDT 06/26/2025 8:29 AM CDT Carmelo Hernandez DO ECG ORDERABLES Final Result Performing Organization Address City/[facility]/ZIP Co de Phone Number [facility] * (ABNORMAL) Troponin T high-sensitivity series (baseline, 2hr, 4hr, 6hr) (06/25/2025 8:55 PM CDT) Pathologist [facility] Trop T hs 24(H) <=22 ng/L Comment: Interpretive Data For further hscTnT resources including the diagnostic algorithm and an aid in interpretation, copy and paste this link: https://nrl.testcatalog.org/show/hsTrop Current Interpretive Data last revised 2020. Testing performed by: [facility], [address] [place] [address]., [address] Blood 06/25/2025 8:55 PM CDT 06/25/2025 9:03 PM CDT Carmelo Hernandez DO LAB BLOOD ORDERABLES Final Res ult [facility] [address] Department [place] [address] * eGFR (06/25/2025 8:55 PM CDT) Pathologist [facility] eGFR 66 >=60 mL/min/1. 73 m2 Comment: Interpretive Data Reference Interval Normal >/= 90 mL/min/1.73m2 Mildly decreased* 60 - 89 mL/min/1.73m2 Mildly to moderately decreased 45 - 59 mL/min/1.73m2 Moderately to severely decreased 30 - 44 mL/min/1.73m2 Severely decreased 15 - 29 mL/min/1.73m2 Kidney Failure < 15 mL/min/1.73m2 *Relative to young adult level Estimated glomerular filtration rate is determined by the 2020 CKD-EPI equation recommended by the National Kidney Foundation (A Unifying Approach to GFR Estimation: Recommendations of the NKF-ASK Task Force on Reassessing the Inclusion of Race in Diagnosing Kidney Disease, JASN 2020). The CKD-EPI equation should not be used for patients with unstable renal function and has not been validated in children and those over 70. Current interpretive data was last reviewed 2021. Testing performed by: [address] [address] Blood 06/25/2025 8:55 PM CDT 06/25/2025 9:03 PM CDT us Carmelo Hernandez DO LAB BLOOD ORDERABLES Final Res ult [facility] [place] [address] Department [place] [address] * (ABNORMAL) Differential, auto (06/25/2025 8:55 PM CDT) Pathologist [facility] Neutrophil abs 3.76 1.50 - 6.50 K/cumm Comment:Testing performed by : [address] [address] Imm gran abs 0.03 0.00 - 0.10 K/cumm [place] Comment:Testing performed by : [address] [address] Lymphocyte abs 2.32 0.80 - 3.30 K/cumm [facility] Comment:Testing performed by : [address] [address] Monocyte abs 1.00(H) 0.20 - 0.80 K/cumm [facility] Comment:Testing performed by : [address] [address] Eosinophil abs 0.60(H) 0.00 - 0.50 K/cumm [facility] Comment:Testing performed by : [address] [address] Basophil abs 0.05 0.00 - 0.10 K/cumm [facility] Comment:Testing performed by : [address] [address] Neutrophil pct 48.5 % [facility] Comment: Interpretive Data Percent cell count reference ranges are not reported, since discordance with absolute values may lead to misinterpretation of CBC data. Current Interpretive Data was last revised on 2018. Testing performed by: [address] [address] Imm gran pct 0.4 % [facility] Comment: Interpretive Data Percent cell count reference ranges are not reported, since discordance with absolute values may lead to misinterpretation of CBC data. Current Interpretive Data was last revised on 2018. Testing performed by: [address] [address] Lymphocyte pct 29.9 % [facility] Comment: Interpretive Data Percent cell count reference ranges are not reported, since discordance with absolute values may lead to misinterpretation of CBC data. Current Interpretive Data was last revised on 2018. Testing performed by: [address] [address] Monocyte pct 12.9 % [facility] Comment: Interpretive Data Percent cell count reference ranges are not reported, since discordance with absolute values may lead to misinterpretation of CBC data. Current Interpretive Data was last revised on 2018. Testing performed by: [address] [address] Eosinophil pct 7.7 % [facility] Comment: Interpretive Data Percent cell count reference ranges are not reported, since discordance with absolute values may lead to misinterpretation of CBC data. Current Interpretive Data was last revised on 2018. Testing performed by: [address] [address] Basophil pct 0.6 % [facility] Comment: Interpretive Data Percent cell count reference ranges are not reported, since discordance with absolute values may lead to misinterpretation of CBC data. Current Interpretive Data was last revised on 2018. Testing performed by: [address] [address] Blood 06/25/2025 8:55 PM CDT 06/25/2025 9:03 PM CDT us Carmelo Hernandez DO LAB BLOOD ORDERABLES Final Res ult [facility] [address] Department [place] [address] * CBC with auto differential (06/25/2025 8:55 PM CDT) WBC 7.76 3.80 - 9.90 K/cumm Comment:Testing performed by : [address] [address] Hgb 15.1 13.0 - 17.5 g/dL [facility] Comment:Testing performed by : [address] [address] Hct 45.8 38.9 - 50.3 % [facility] Comment:Testing performed by : [address] [address] Plt 245 150 - 400 K/cumm [facility] Comment:Testing performed by : [address] [address] MPV 10.0 9.1 - 12.3 fL [facility] Comment:Testing performed by : [address] [address] RBC 5.20 4.30 - 5.80 M/cumm [facility] Comment:Testing performed by : [address] [address] MCV 88.1 81.3 - 96.4 fL [facility] Comment:Testing performed by : [address] [address] MCH 29.0 27.1 - 33.3 pg [facility]ERA Comment:Testing performed by : [address] [address] MCHC 33.0 32.3 - 35.7 g/dL [facility] Comment:Testing performed by : [address] [address] RDW CV 14.1 11.1 - 14.9 % [facility] Comment:Testing performed by : [address] [address] RDW SD 45.2 35.7 - 48.1 fL [facility] Comment:Testing performed by : [address] [address] NRBC abs 0.00 0.00 - 0.01 K/cumm [facility] Comment:Testing performed by : [address] [address] Blood Venous blood specimen / Unknown 06/25/2025 8:55 PM CDT 06/25/2025 9:03 PM CDT us Carmelo Hernandez DO LAB BLOOD ORDERABLES Final Res ult [facility] [address] Department [place] [address] * Comprehensive metabolic panel (06/25/2025 8:55 PM CDT) Sodium 138 135 - 145 mmol/L Comment:Testing performed by : [address] [address] Potassium, pl 4.6 3.3 - 4.9 mmol/L [facility] Comment:Testing performed by : [address] [address] Chloride 100 97 - 110 mmol/L [facility] Comment:Testing performed by : [address] [address] CO2 26 22 - 32 mmol/L [facility] Comment:Testing performed by : [address] [address] Anion gap 12 2 - 15 mmol/L [facility] Comment:Testing performed by : [address] [address] BUN 23 6 - 25 mg/dL [facility] Comment:Testing performed by : [address] [address] Creatinine 1.08 0.80 - 1.30 mg/dL [facility] Comment:Testing performed by : [address] [address] Glucose 105 70 - 199 mg/dL [facility] Comment: Interpretive Data Fasting glucose >/= 126 mg/dl is diagnostic for diabetes. Fasting is defined as no caloric intake for at least 8 hours. Fasting glucose between 100 mg/dl to 125 mg/dl is diagnostic of prediabetes. In a patient with classic symptoms of hyperglycemia or hyperglycemic crisis, a random glucose >/= 200 mg/dl is diagnostic for diabetes. In the absence of unequivocal hyperglycemia, results should be confirmed by repeat testing. The classification and Diagnosis of Diabetes Diabetes Care 2021; 46: S19-S40. Current interpretive data was last revised 2022. Testing performed by: [address] [address] Calcium 10.0 8.5 - 10.3 mg/dL [facility] Comment:Testing performed by : [address] [address] Bilirubin, total 0.4 0.1 - 1.2 mg/dL [facility] Comment:Testing performed by : [address] [address] Protein, pl 7.2 6.5 - 8.5 g/dL [facility] Comment:Testing performed by : [address] [address] Albumin 4.4 3.5 - 5.0 g/dL [facility] Comment:Testing performed by : [address] [address] Alk phos 53 40 - 130 Units/L [facility] Comment:Testing performed by : [address] [address] ALT 17 7 - 55 Units/L [facility] Comment:Testing performed by : [address], [place]., [address] AST 23 10 - 50 Units/L [facility] MADERA Comment:Testing performed by : [address] [address] Blood 06/25/2025 8:55 PM CDT 06/25/2025 9:03 PM CDT us Carmelo Hernandez DO LAB BLOOD ORDERABLES Final Res ult [facility] [address] Department [place] [address] from Last 3 Months Insurance MEDICARE [facility] BLUE CROSS MEDICARE SUPPLEMENT MEDICARE BLUE CROSS MEDICARE SUPPLEMENT [facility] Advance Directives For more information, please contact: [phone] * Full Code (Latest Code Status on File) Date Activated Date Inactivated Comments 06/02/2025 2:25 AM 06/03/2025 7:02 PM Care Teams Dental Internship Relationship Specialty Start Date End Date Joanie Milligan DO PCP - General Family Medicine 06/01/25 Joanie Rosario 12/20/24
--- OUTSIDE RECORDS SUMMARY | 2025-09-18 09:39 | XMS_ITS | Clinical Summary ---
Author Organization [facility] Address [address] [place] [phone] Phone Care Team Providers Care External Grinder Tool Name Role Phone Benja Smith MD Primary Care Provider Social History Tobacco Use Types Packs/Day Years Used Date Smoking Tobacco: Never Assessed Sex and Gender Information Value Date Recorded Sex Assigned at Not on file Legal Sex Male 10:17 AM [employer] Gender Identity Not on file Sexual Orientation Not on file Plan of Treatment Health Maintenance Due Date Last Done Comments DTAP/TDAP/TD VACCINES (1 - Tdap) 1955 PNEUMOCOCCAL VACCINE 50+ YEARS (1 of 1 - PCV) 06/01/19 86 ZOSTER VACCINE (1 of 2) 1986 RSV VACCINE (60+ or ) (1 - 1-dose 75+ series) 2011 INFLUENZA VACCINE (#1) 2025 Insurance MEDICARE [facility] ONLY BCBS SUPP Care Teams External Grinder Tool Relationship Specialty Start Date End Date Benja Smith MD [address] [place] [id number] PCP - General Family Practice 12/20/17
[2025-09-18 14:45] LABS: Alanine Aminotransferase 20 U/L (6-50); Albumin Level 4.4 g/dL (3.5-5.1); Alkaline Phosphatase 51 U/L (38-126); Anion Gap 6 mmol/L (4-12); Aspartate Amino Transferase 50 U/L (17-59); Bilirubin,Total 0.8 mg/dL (0.2-1.3); Blood Urea Nitrogen 30 mg/dL (9-20); Calcium 9.4 mg/dL (8.4-10.2); Carbon Dioxide 27 mmol/L (22-30); Chloride 102 mmol/L (98-107); Cholesterol 164 mg/dL (0-200); Estimated Glomerular Filt Rate > 60; Glucose 96 mg/dL (65-110); HDL Direct 47 mg/dL; Potassium 4.1 mmol/L (3.4-5.0); Sodium 135 mmol/L (137-145); Total Protein 7.6 g/dL (6.3-8.2); Triglycerides 126 mg/dL (<150)
[2025-09-18 16:06] LABS: MALB Creatinine Ratio 10.4 mg/g (0-30)
[2025-09-18 16:15] LABS: Hemoglobin A1C 6.3 % (<5.7)
== END 2025-09-18 09:02 | disposition home or self-care (01) ==
LOC: ANHGOSHLAB 09:02
PROVIDERS: PCP Family Medicine; Visit Provider Nurse Practitioner
DX: E11.65 Type 2 diabetes mellitus with hyperglycemia (principal); E55.9 Vitamin D deficiency, unspecified
CPT/HCPCS: 36415; 80053; 80061; 82043; 82306; 83036